=== PATIENT | male | born 1955 | race Hispanic/Latino ===

== ENCOUNTER 2018-08-12 10:38 | Emergency (ER) | payer OTHER ==
--- OUTSIDE RECORDS SUMMARY | 2018-08-12 10:40 | XMS REPORT | Continuity of Care Document ---
:1955 Author Organization Interface Problems Problem Status Onset Classification Date Comments Source Date Reported WOUND CLOSURE Active 01/28/20 [facility] LEFT MID FOOT 17 AMPUTATION N/A Active 01/28/20 [place] [id number] Diabetes Active Problem 02/02/2017 [facility] OTH COMPLICATIONS Active [facility] OF PROCEDURES, NEC, IN Medications Medication Details Route Status Patient Ordering Order Source Instructions Provider Date Acetaminophen 15 ml, Route: Inactive 21.7 MG/ML / PO, Drug Form: 2016 [facility] Hydrocodone SOLN, Dosing Bitartrate 0.5 Weight 66.364, MG/ML Oral kg, ONCE, PRN Solution Pain Score 4-6, Start date: 01/30/17 15:25:00 CDT Insulin, Aspart, 3 unit, 0.03 mL, No Longer Human Route: SUB-Q, Active 2016 [facility] Drug form: SOLN, Sliding Scale, Dosing Weight 66.364, kg, PRN Blood Glucose Results, Start date: 01/30/17 13:56:00 CDT, Duration: 30 day, Stop date: 03/01/17 13:55:00 CDTNotes: Roll in palms of hands gently; Do not shake vigorously. (Same as: NovoLOG) "single patient use only" WASTE: F/P - Black; E - Municipal Trash Bin Stable for 28 days at room temperature. Expires in days from Da te Sodium Chloride 1,000 mL, Rate: No Longer 0.154 MEQ/ML 125 ml/hr, Active 2016 [facility] Injectable Infuse over: 8 Solution hr, Route: IV, Dosing Weight 66.364 kg, Total Volume: 1,000, Start date: 01/30/17 13:56:00 CDT, Duration: 30 day, Stop date: 03/01/17 13:55:00 CDT Morphine 2 mg, 1 mL, No Longer Route: IVP, Drug Active 2016 [facility] form: INJ, Q5Min, Dosing Weight 66.364, kg, PRN Pain Score 4-6, Start date: 01/30/17 13:56:00 CDT, Duration: 5 doses or times, Stop date: Limited # of timesNotes: (Same as:MORPhine Sulfate) Acetaminophen 1,000 mg, 2 tab, No Longer Route: PO, Drug Active 2016 [facility] form: TAB, ONCE, Dosing Weight 66.364, kg, PRN Pain Score 1-3, Start date: 01/30/17 13:56:00 CDT, Duration: 1 doses or times, Stop date: Limited # of timesNotes: Max acetaminophen 4000 mg/day (4 gm/day). (Same as: Tylenol Extra Strength) Fentanyl 25 microgram, No Longer 0.5 mL, Route: Active 2016 [facility] IVP, Drug form: INJ, Q5Min, Dosing Weight 66.364, kg, PRN Pain Score 4-6, Priority: Routine, Start date: 01/30/17 13:56:00 CDT, Duration: 4 doses or times, Stop date: Limited # of timesNotes: (Same as: Sublimaze) Preservative free. Ondansetron 4 mg, 2 mL, Inactive Route: IVP, Drug 2016 [facility] form: INJ, ONCE, Dosing Weight 66.364, kg, PRN Nausea & Vomiting, Start date: 01/30/17 13:56:00 CDTNotes: (Same as: Zofran) MEDICATION WASTE Product Size: 4 mg Product Wasted: ___ mg Flumazenil 0.2 mg, 2 mL, No Longer Route: IVP, Drug Active 2016 [facility] form: INJ, PRN, Dosing Weight 66.364, kg, PRN Benzodiazepine Reversal, Initial dose, Start date: 01/30/17 13:56:00 CDT, Duration: 30 day, Stop date: 03/01/17 13:55:00 CDTNotes: (Same as: Romazicon) Naloxone 0.4 mg, 1 mL, No Longer Route: IVP, Drug Active 2016 [facility] form: INJ, Q2MIN, Dosing Weight 66.364, kg, PRN Narcotic Reversal, Start date: 01/30/17 13:56:00 CDT, Duration: 8 doses or times, Stop date: Limited # of timesNotes: Same as Narcan ePHEDrine (ANES) Route: IV, Drug Inactive MH form: INJ, ONCE, 2016 [facility] Stop date: 01/30/17 13:41:00 CDT metoclopramide Route: IV, Drug Inactive MH (ANES) form: INJ, ONCE, 2016 [facility] Stop date: 01/30/17 13:16:00 CDT ondansetron Route: IV, Drug Inactive MH (ANES) form: INJ, ONCE, 2016 [facility] Stop date: 01/30/17 13:16:00 CDT propofol (ANES) Route: IV, Drug Inactive MH form: INJ, ONCE, 2016 [facility] Stop date: 01/30/17 13:11:00 CDT lidocaine (ANES) Route: IV, Drug Inactive MH form: INJ, ONCE, 2016 [facility] Stop date: 01/30/17 13:06:00 CDT phenylephrine Route: IV, Drug Inactive MH (ANES) form: INJ, ONCE, 2016 [facility] Stop date: 01/30/17 13:06:00 CDT midazolam (ANES) Route: IV, Drug Inactive MH form: CHASEN, 2016 [facility] ONCE, Stop date: 01/30/17 13:06:00 CDT Unknown Home Refill(s) 0 Active Medication 2016 [facility] Aspirin 81 mg, PO, 0 Active Refill(s) 2016 [facility] metoprolol 50 mg=1 tab, PO, Active tartrate 50 mg BID, 0 Refill(s) 2016 [facility] oral tablet meropenem 500 mg 500 mg, IV, Q12H Active intravenous 2016 [facility] injection propofol (ANES) Route: IV, Drug Inactive MH (ANES) form: INJ, Start 2016 date: 01/30/17 12:29:00 CDT, Stop date: 01/30/17 13:29:00 CDT vancomycin 750 IV, Q48H, 0 Active mg intravenous Refill(s) 2016 [facility] injection sodium chloride Route: IV, Total Inactive 05/01/ 0.9% 500 ml INJ Volume: 500, 2017 [facility] (ANES) Start date: 01/30/17 12:20:00 CDT, Stop date: 01/30/17 13:20:00 CDT Allergies, Adverse Reactions, Alerts Substance Category Reaction Severity Reaction Status Date Comments Source type Reported Immunizations Immunization Date Given Site Status Last Updated Comments Source Results Order Name Results Value Reference Date Interpretation Comments Source Range ELECTROLYTES POC Sodium 127 135 - 145 meq/L 2016 [facility] ELECTROLYTES POC 4.7 3.5 - 5.1 Potassium meq/L 2016 [facility] ELECTROLYTES POC Chloride 91 95 - 109 meq/L 2016 [facility] ELECTROLYTES POC BUN 61 7 - 22 mg/dL 2016 [facility] ELECTROLYTES POC Glucose 108 70 - 99 mg/dL 2016 [facility] ELECTROLYTES POC 9.9 14.0 - 18.0 Hemoglobin g/dL 2016 [facility] ELECTROLYTES POC 29.0 % 42.0 - 54.0 Hematocrit 2016 [facility] Vital Signs Vital Sign Value Date Comments Source Systolic (mm Hg) 108 01/30/2017 [facility] Diastolic (mm Hg) 64 01/30/2017 [facility] Systolic (mm Hg) 105 01/30/2017 [facility] Diastolic (mm Hg) 71 01/30/2017 [facility] Respitory Rate 15 01/30/2017 [facility] Systolic (mm Hg) 98 01/30/2017 [facility] Diastolic (mm Hg) 59 01/30/2017 [facility] Respitory Rate 21 01/30/2017 [facility] Respitory Rate 16 01/30/2017 [facility] Heart Rate 70 01/30/2017 [facility] Temperature Oral (F) 97.6 F 01/30/2017 [facility] BMI Calculated 25.11 01/27/2017 [facility] Height 162.56 cm 01/27/2017 [facility] Weight 66.364 01/27/2017 [facility] Encounters Location Location Encounter Encounter Reason Attending ADM DC Status Source Details Type Number For Provider Date Date Visit [id number] Rodolfo 01/30 01/30 [facility] [place] /[address] [facility] Procedures Procedure Code Date Perfomer Comments Source Cholecystectomy [id number] [facility]
[2018-08-12] MEDS ORDERED: NA CHLORIDE 0.9% 1,000 ML ONE (11:25)
--- NOTE | 2018-08-12 11:52 | RAD REPORT ---
EXAM DESCRIPTION: CT - Abdomen Pelvis Wo Contrast - 08/12/2018 11:37 am CLINICAL HISTORY: Weakness, abdominal pain, peritoneal dialysis patient COMPARISON: None. TECHNIQUE: Axial [address] imaging of the abdomen and pelvis was performed without IV contrast. No IV contrast was given because of allergy, abnormal renal function, patient refusal or physician re quest. Oral contrast was given. All CT scans are performed using dose optimization technique as appropriate and may include automated exposure control or mA/KV adjustment according to patient size. FINDINGS: No cardiomegaly. Trace amount of pericardial effusion near the anterior base. Minimal righ t pleural effusion is present. There is patchy lung parenchymal opacification that could be atelectas is or a minimal infiltrate. The liver, spleen and pancreas show no suspicious findings on non-contrast imaging. Cholecystectomy c lips are present. No biliary tree dilatation. No hydronephrosis or suspicious renal mass. Kidneys are atrophic. There is dense calcification of the entire arterial tree not uncommon in long-term dialysis and diabetic patients. Free fluid adjacent t o the liver is related to peritoneal dialysis. A peritoneal dialysis catheter is present in the anter ior lower abdomen and pelvis. No significant adrenal finding. Renal function is not assessed on nonco ntrast imaging. Pyelonephritis or acute renal parenchymal assessment is limited. Urinary bladder is c ontracted. Urinary bladder duarte are accentuated. Prostate gland is normal size. No dilated bowel loops or bowel wall thickening. No free air or pneumatosis. No mass or bulky lymphad enopathy. No hernia defects seen. No acute bone process. IMPRESSION: No bowel obstruction, free air or emergent finding identifiable. Minimal right base opacification could be a minimal right base pneumonia or atelectasis. There is tra ce right pleural effusion as well. Urinary bladder is contracted. Duarte are thickened. A cystitis is not excluded on noncontrast imaging . There is no adjacent stranding. No acute renal parenchymal process. Small amount of ascites near the liver related to peritoneal dialysis. Full assessment is limited is the absence of IV contrast.
--- NOTE | 2018-08-12 11:53 | RAD REPORT ---
EXAM DESCRIPTION: RAD - Chest Single View - 08/12/2018 11:46 am CLINICAL HISTORY: Weakness, shortness of breath, end-stage renal disease, dialysis patient COMPARISON: None. TECHNIQUE: AP portable chest image was obtained 1133 hours . FINDINGS: Right hemidiaphragm elevation is present. There is patchy posterior gutter opacification t hat could be atelectasis or early infiltrate. No failure or volume overload. Heart and vasculature ar e normal. No measurable pleural effusion and no pneumothorax. No acute bony abnormality seen. No acut e aortic findings suspected. IMPRESSION: Atelectasis versus early pneumonia posterior gutter on the right.
[2018-08-12 11:55] LABS: Absolute Lymphocytes (CBC) 0.4 K/uL (0.7-4.9); Absolute Neutrophil 7.2 K/uL (1.8-8.0); Basophils % 0.5 % (0-1.3); Eosinophils % 0.6 % (0-4.4); Hematocrit 31.4 % (39.6-49.0); Lymphocytes % 4.9 % (15.3-44.8); MCH 33.2 pg (27.0-35.0); MCV 94.4 fL (80-100); MPV 7.7 fL (7.6-11.3); Monocytes % 11.1 % (3.3-12.3); RBC Red Blood Cell Count 3.32 M/uL (4.33-5.43)
[2018-08-12 11:59] LABS: Protime INR 1.14
[2018-08-12 12:23] LABS: ALT/SGPT 46 U/L (12-78); AST/SGOT 31 U/L (15-37); Albumin 2.4 g/dL (3.4-5.0); Alkaline Phosphatase 77 U/L (45-117); BUN Blood Urea Nitrogen 38 mg/dL (7-18); Bicarbonate 21 mmol/L (21-32); Bilirubin Direct 0.2 mg/dL (0-0.2); Bilirubin Total 0.6 mg/dL (0.2-1.0); Glucose Level 86 mg/dL (74-106); Magnesium 1.5 mg/dL (1.8-2.4); NT PRO-BNP 4240 pg/mL (<125); Potassium 3.3 mmol/L (3.5-5.1); Protein, Total 5.1 g/dL (6.4-8.2); Sodium Level 134 mmol/L (136-145); Troponin (Emerg Dept Use Only) < 0.02 ng/mL (0.0-0.045)
--- NOTE | 2018-08-12 16:22 | ER ---
Nurse's Notes [facility] Name: Amauri Boateng Age: 62 yrs Sex: Male : 1955 Arrival Date: 08/12/2018 Time: 10:39 Bed External Waiting [facility] MD: Diagnosis: Hypotension;Pneumonia, unspecified organism;ESRD, Peritoneal dialysis Presentation: 08/12 10:42 Presenting complaint: EMS states: He does home dialysis every day, has been feeling jl7 weak for the past few days, the last time this happened it was his potassium. Transition of care: patient was not received from another setting of care. Onset of symptoms was August 12, 2018. Risk Assessment: Do you want to hurt yourself or someone else? Patient reports no desire to harm self or others. Initial Sepsis Screen: Does the patient meet any 2 criteria? No. Patient's initial sepsis screen is negative. Does the patient have a suspected source of infection? No. Patient's initial sepsis screen is negative. Care prior to arrival: IV initiated. 20 GA, in the left forearm. 10:42 Method Of Arrival: EMS: [facility] 7 10:42 Acuity: KRISTIN 3 jl7 Triage Assessment: 10:45 General: Appears in no apparent distress. uncomfortable, Behavior is calm, cooperative, jl7 appropriate for age. Pain: Denies pain. EENT: No signs and/or symptoms were reported regarding the EENT system. Neuro: Level of Consciousness is awake, alert, obeys commands, Oriented to person, place, time, situation, Speech is normal. Cardiovascular: Heart tones present Patient's skin is warm and dry. Respiratory: Airway is patent Respiratory effort is even, unlabored, Respiratory pattern is regular, symmetrical, Denies cough, shortness of breath. GI: No signs and/or symptoms were reported involving the gastrointestinal system. : No signs and/or symptoms were reported regarding the genitourinary system. Derm: Skin is pink, warm \\T\\ dry. Musculoskeletal: No signs and/or symptoms reported regarding the musculoskeletal system. Historical: - Allergies: 10:45 No Known Allergies; jl7 - Home Meds: 10:45 Potassium Chloride Oral [Active]; Lomotil oral oral [Active]; Eliquis oral oral jl7 [Active]; - PMHx: 10:45 ESRD; Dialysis; Diabetes - NIDDM; jl7 10:57 Chronic Diarrhea; jl7 - PSHx: 10:55 left toes amputation; jl7 - Immunization history:: Adult Immunizations up to date. - Social history:: Smoking status: Patient/guardian denies using tobacco. - Ebola Screening: : No symptoms or risks identified at this time. Screenin:46 Abuse screen: Denies threats or abuse. Denies injuries from another. Nutritional jl7 screening: No deficits noted. Tuberculosis screening: No symptoms or risk factors identified. Fall Risk IV access (20 points). Total Bateman Fall Scale indicates No Risk (0-24 pts). Assessment: 10:46 General: see triage assessment. jl7 11:39 Reassessment: No changes from previously documented assessment. Patient and/or family jl7 updated on plan of care and expected duration. Pain level reassessed. Patient is alert, oriented x 3, equal unlabored respirations, skin warm/dry/pink. 12:44 Reassessment: Patient appears in no apparent distress at this time. Patient and/or jl7 family updated on plan of care and expected duration. Pain level reassessed. Patient is alert, oriented x 3, equal unlabored respirations, skin warm/dry/pink. 12:51 Reassessment: Lab alert: Creat. 9.60, ERP notified. jl7 14:33 Reassessment: Patient appears in no apparent distress at this time. Patient and/or jl7 family updated on plan of care and expected duration. Pain level reassessed. Patient is alert, oriented x 3, equal unlabored respirations, skin warm/dry/pink. 15:30 Reassessment: Patient appears in no apparent distress at this time. Patient and/or jl7 family updated on plan of care and expected duration. Pain level reassessed. Patient is alert, oriented x 3, equal unlabored respirations, skin warm/dry/pink. 16:30 Reassessment: Patient and/or family updated on plan of care and expected duration. Pain jl7 level reassessed. Patient is alert, oriented x 3, equal unlabored respirations, skin warm/dry/pink. Pt's is leaving at this time, reports "I can't drive in the dark.". 17:30 Reassessment: No changes from previously documented assessment. Patient and/or family jl7 updated on plan of care and expected duration. Pain level reassessed. Patient is alert, oriented x 3, equal unlabored respirations, skin warm/dry/pink. 18:30 Reassessment: No changes from previously documented assessment. Patient and/or family jl7 updated on plan of care and expected duration. Pain level reassessed. Patient is alert, oriented x 3, equal unlabored respirations, skin warm/dry/pink. Vital Signs: 10:40 BP 95 / 50; Pulse 93; Resp 18; Temp 99.5(O); Pulse Ox 98% on R/A; Weight 69.4 kg; hj Height 5 ft. 5 in. (165.10 cm); 11:00 BP 78 / 60; Pulse 90; Resp 14 S; Pulse Ox 99% on R/A; jl7 11:15 BP 83 / 57 LA; Pulse 88; Resp 16 S; Pulse Ox 99% on R/A; jl7 11:20 BP 90 / 41 RA; Pulse 88; Resp 14; Pulse Ox 98% on R/A; jl7 11:52 BP 85 / 62; Pulse 82; Resp 16 S; Pulse Ox 98% on R/A; jl7 12:00 BP 101 / 63; Pulse 83; Resp 16 S; Pulse Ox 99% on R/A; jl7 12:15 BP 106 / 68; Pulse 84; Resp 16 S; Pulse Ox 100% on R/A; jl7 12:30 BP 95 / 64; Pulse 75; Resp 16 S; Pulse Ox 99% on R/A; jl7 13:00 BP 107 / 71; Pulse 82; Resp 16 S; Pulse Ox 98% on R/A; jl7 13:30 BP 90 / 61; Pulse 80; Resp 16 S; Pulse Ox 96% on R/A; jl7 14:00 BP 102 / 64; Pulse 80; Resp 80; Pulse Ox 99% ; jl7 14:33 BP 95 / 69; Pulse 84; Resp 16 S; Pulse Ox 98% on R/A; jl7 15:00 BP 93 / 58; Pulse 81; Resp 16 S; Pulse Ox 98% on R/A; jl7 15:30 BP 99 / 56; Pulse 81; Resp 16 S; Pulse Ox 98% on R/A; jl7 16:00 BP 106 / 66; Pulse 82; Resp 14 S; Pulse Ox 100% on R/A; jl7 16:30 BP 101 / 68; Pulse 81; Resp 16 S; Pulse Ox 100% on R/A; jl7 17:00 BP 101 / 67; Pulse 79; Resp 16 S; Pulse Ox 100% on R/A; jl7 17:30 BP 100 / 63; Pulse 77; Resp 16 S; Pulse Ox 100% on R/A; jl7 18:00 BP 103 / 62; Pulse 79; Resp 16 S; Pulse Ox 100% on R/A; jl7 18:30 BP 95 / 65; Pulse 74; Resp 16 S; Pulse Ox 100% on R/A; jl7 19:30 BP 120 / 74; Pulse 79; Resp 18; Pulse Ox 99% on R/A; tl2 20:51 BP 112 / 75; Pulse 79; Resp 17; Pulse Ox 99% on R/A; tl2 10:40 Body Mass Index 25.46 (69.40 kg, 165.10 cm) ED Course: 10:39 Patient arrived in ED. hj 10:42 Leanna Marshall RN is Primary Nurse. jl7 10:43 Triage completed. jl7 10:45 Emmanuel Beavers NP is PHCP. pm1 10:45 Shaquille Mcgregor MD is Attending Physician. pm1 10:45 Arm band placed on right wrist. jl7 10:46 Patient has correct armband on for positive identification. Placed in gown. Bed in low jl7 position. Call light in reach. Side rails up X2. board mill supervisor on. Pulse ox on. NIBP on. Warm blanket given. 10:46 Maintain EMS IV. Dressing intact. Good blood return noted. Site clean \\T\\ dry. Gauge \\T\\ jl 7 site: 20 right FA. 11:00 EKG done, by ED staff, reviewed by Emmanuel Beavers NP. jb1 11:25 First set of blood cultures drawn by me. jb1 11:37 CT completed. Patient tolerated procedure well. Patient moved back from CT. bq 11:37 CT Abd/Pelvis - Without Cont In Process Unspecified. EDMS 11:40 Second set of blood cultures drawn by me. jb1 11:44 X-ray completed. Patient tolerated procedure well. Patient moved back from radiology. sg4 11:45 XRAY Chest (1 view) In Process Unspecified. EDMS 11:52 Initial lab(s) drawn, by tn, sent to lab. Inserted saline lock: 22 gauge in right jb1 wrist, using aseptic technique. Blood collected. 19:09 Primary Nurse role handed off by Leanna Marshall RN jl7 21:29 No provider procedures requiring assistance completed. Patient transferred, IV remains tl2 in place. Administered Medications: 11:25 Drug: NS 0.9% 1000 ml Route: IV; Rate: 1000 ml; Site: left forearm; jl7 12:30 Follow up: IV Status: Completed infusion jl7 16:30 Drug: NS 0.9% 1000 ml Route: IV; Rate: 100 ml/hr; Site: right forearm; jl7 16:31 Drug: Rocephin 1 grams Route: IV; Rate: calculated rate; Site: right forearm; jl7 16:33 Follow up: Response: No adverse reaction; IV Status: Completed infusion jl7 16:34 Drug: Magnesium Sulfate 1 grams Route: IVPB; Infused Over: 1 hrs; Site: right forearm; jl7 16:36 Drug: Potassium Effervescent Tablet 25 mEq Route: PO; jl7 Outcome: 16:21 ER care complete, transfer ordered by MD. pm1 21:10 Patient left the ED. tl2 21:29 Transferred by ground EMS Transfer form completed. tl2 21:29 Condition: stable 21:29 Discharge instructions given to patient, Instructed on the need for transfer. Signatures: Dispatcher [employer] EDMS Surinder Gilbert jb1 Delaney Yañez Henry, RN RN hj Emmanuel Beavers, DANILO MONTESSORI PARAPROFESSIONAL pm1 Martha Piña RN RN tl2 Leanna Marshall RN RN jl7 Noreen Sanchez sg4 Corrections: (The following items were deleted from the chart) 10:42 10:40 BP 95 / 50; Pulse 93bpm; Resp 18bpm; Pulse Ox 98% RA; Temp 99.5F Oral; 73.94 kg; hj Height 5 ft. 5 in.; BMI: 27.1; hj 17:02 12:31 Rocephin 1 grams IV at calculated rate in right forearm jl7 jl7
--- NOTE | 2018-08-12 16:22 | EDPHYS ---
Physician Documentation [facility] Name: Amauri Boateng Age: 62 yrs Sex: Male : 1955 Arrival Date: 08/12/2018 Time: 10:39 Bed External Waiting Private MD: ED Physician Shaquille Mcgregor HPI: 08/12 12:00 This 62 yrs old Male presents to ER via EMS with complaints of Blood Pressure pm1 Problem, General Weakness. 12:00 The patient presents to the emergency department with weakness of the entire body, pm1 generalized weakness. Onset: The symptoms/episode began/occurred 1 week(s) ago. Associated signs and symptoms: Pertinent positives: diarrhea, cough, Pertinent negatives: chills, fever, headache, nausea, vomiting. Severity of symptoms: in the emergency department the symptoms are worse Pain is currently a 0 / 10. Patient's baseline: The patient has a previous history of ESRD, peritoneal dialysis for 11 years, chronic diarrhea since onset of peritoneal dialysis. Current symptoms: generalized weakness. The patient has not experienced similar symptoms in the past. The patient has not recently seen a physician, the patient's primary care provider is Dr. Galindo, PCP and nephrology . Presenting today with complaints of generalized weakness for 1 week. Has had diarrhea and cough. No nausea or vomiting. On EMS arrival, patient with hypotension. Systolic blood pressure in the 80s on EMS arrival. Patient with history of chronic diarrhea since onset of peritoneal dialysis 11 years ago. Has had evaluation by two GI physicians and no known cause for diarrhea. Takes Lomotil PRN for diarrhea. . Historical: - Allergies: 10:45 No Known Allergies; jl7 - Home Meds: 10:45 Potassium Chloride Oral [Active]; Lomotil oral oral [Active]; Eliquis oral oral jl7 [Active]; - PMHx: 10:45 ESRD; Dialysis; Diabetes - NIDDM; jl7 10:57 Chronic Diarrhea; jl7 - PSHx: 10:55 left toes amputation; jl7 - Immunization history:: Adult Immunizations up to date. - Social history:: Smoking status: Patient/guardian denies using tobacco. - Ebola Screening: : No symptoms or risks identified at this time. ROS: 12:00 Constitutional: Negative for fever, chills, and weight loss, Eyes: Negative for injury, pm1 pain, redness, and discharge, ENT: Negative for injury, pain, and discharge, Neck: Negative for injury, pain, and swelling, Cardiovascular: Negative for chest pain, palpitations, and edema, Abdomen/GI: Negative for abdominal pain, nausea, vomiting, diarrhea, and constipation, Back: Negative for injury and pain. 12:00 MS/Extremity: Negative for injury and deformity, Skin: Negative for injury, rash, and discoloration. 12:00 Respiratory: Positive for cough, Negative for shortness of breath, sputum production, wheezing. 12:00 Neuro: Positive for weakness, generalized, Negative for dizziness, headache, numbness, tingling. Exam: 12:00 Constitutional: This is a well developed, well nourished patient who is awake, alert, pm1 and in no acute distress. Head/Face: Normocephalic, atraumatic. Eyes: Pupils equal round and reactive to light, extra-ocular motions intact. Lids and lashes normal. Conjunctiva and sclera are non-icteric and not injected. Cornea within normal limits. Periorbital areas with no swelling, redness, or edema. ENT: Nares patent. No nasal discharge, no septal abnormalities noted. Tympanic membranes are normal and external auditory canals are clear. Oropharynx with no redness, swelling, or masses, exudates, or evidence of obstruction, uvula midline. Mucous membranes moist. Neck: Trachea midline, no thyromegaly or masses palpated, and no cervical lymphadenopathy. Supple, full range of motion without nuchal rigidity, or vertebral point tenderness. No Meningismus. Chest/axilla: Normal chest wall appearance and motion. Nontender with no deformity. No lesions are appreciated. Cardiovascular: Regular rate and rhythm with a normal S1 and S2. No gallops, murmurs, or rubs. Normal PMI, no JVD. No pulse deficits. Respiratory: Lungs have equal breath sounds bilaterally, clear to auscultation and percussion. No rales, rhonchi or wheezes noted. No increased work of breathing, no retractions or nasal flaring. Abdomen/GI: Soft, non-tender, with normal bowel sounds. No distension or tympany. No guarding or rebound. No evidence of tenderness throughout. Peritoneal dialysis site on abdomen without any signs of infection. No tenderness, redness, erythema, or discharge Back: No spinal tenderness. No costovertebral tenderness. Full range of motion. Skin: Warm, dry with normal turgor. Normal color with no rashes, no lesions, and no evidence of cellulitis. MS/ Extremity: Pulses equal, no cyanosis. Neurovascular intact. Full, normal range of motion. 12:00 Neuro: Orientation: is normal, Motor: is normal, moves all fours. Vital Signs: 10:40 BP 95 / 50; Pulse 93; Resp 18; Temp 99.5(O); Pulse Ox 98% on R/A; Weight 69.4 kg; hj Height 5 ft. 5 in. (165.10 cm); 11:00 BP 78 / 60; Pulse 90; Resp 14 S; Pulse Ox 99% on R/A; jl7 11:15 BP 83 / 57 LA; Pulse 88; Resp 16 S; Pulse Ox 99% on R/A; jl7 11:20 BP 90 / 41 RA; Pulse 88; Resp 14; Pulse Ox 98% on R/A; jl7 11:52 BP 85 / 62; Pulse 82; Resp 16 S; Pulse Ox 98% on R/A; jl7 12:00 BP 101 / 63; Pulse 83; Resp 16 S; Pulse Ox 99% on R/A; jl7 12:15 BP 106 / 68; Pulse 84; Resp 16 S; Pulse Ox 100% on R/A; jl7 12:30 BP 95 / 64; Pulse 75; Resp 16 S; Pulse Ox 99% on R/A; jl7 13:00 BP 107 / 71; Pulse 82; Resp 16 S; Pulse Ox 98% on R/A; jl7 13:30 BP 90 / 61; Pulse 80; Resp 16 S; Pulse Ox 96% on R/A; jl7 14:00 BP 102 / 64; Pulse 80; Resp 80; Pulse Ox 99% ; jl7 14:33 BP 95 / 69; Pulse 84; Resp 16 S; Pulse Ox 98% on R/A; jl7 15:00 BP 93 / 58; Pulse 81; Resp 16 S; Pulse Ox 98% on R/A; jl7 15:30 BP 99 / 56; Pulse 81; Resp 16 S; Pulse Ox 98% on R/A; jl7 16:00 BP 106 / 66; Pulse 82; Resp 14 S; Pulse Ox 100% on R/A; jl7 16:30 BP 101 / 68; Pulse 81; Resp 16 S; Pulse Ox 100% on R/A; jl7 17:00 BP 101 / 67; Pulse 79; Resp 16 S; Pulse Ox 100% on R/A; jl7 17:30 BP 100 / 63; Pulse 77; Resp 16 S; Pulse Ox 100% on R/A; jl7 18:00 BP 103 / 62; Pulse 79; Resp 16 S; Pulse Ox 100% on R/A; jl7 18:30 BP 95 / 65; Pulse 74; Resp 16 S; Pulse Ox 100% on R/A; jl7 19:30 BP 120 / 74; Pulse 79; Resp 18; Pulse Ox 99% on R/A; tl2 20:51 BP 112 / 75; Pulse 79; Resp 17; Pulse Ox 99% on R/A; tl2 10:40 Body Mass Index 25.46 (69.40 kg, 165.10 cm) hj MDM: 10:45 Patient medically screened. pm1 15:32 Physician consultation: Betty Daley MD was called at 15:32, was contacted at pm1 15:32, regarding consult, patient's condition, after a discussion of the case, a recommendation for transfer for higher level of care is made, Requests transfer to [facility] due to peritoneal dialysis. Will contact Dr. Anthony Rice to discuss case and see if he available to take the patient. 16:19 Physician consultation: Anthony Rice was called at 16:10, was contacted at 16:19, pm1 regarding regarding transfer, patient's condition, Will see if bed availability at [facility] and will call us back. 18:35 Data reviewed: vital signs. Data interpreted: Pulse oximetry: on room air is 100 %. pm1 Interpretation: normal. 08/12 11:16 Order name: Basic Metabolic Panel pm1 08/12 11:16 Order name: CBC with Diff pm1 08/12 11:16 Order name: LFT's; Complete Time: 13:12 pm1 08/12 11:16 Order name: Magnesium; Complete Time: 13:12 pm1 08/12 11:16 Order name: NT PRO-BNP; Complete Time: 13:12 pm1 08/12 11:16 Order name: PT-INR; Complete Time: 13:10 pm1 08/12 11:16 Order name: Troponin (emerg Dept Use Only); Complete Time: 13:12 pm1 08/12 11:16 Order name: Procalcitonin; Complete Time: 13:13 pm1 08/12 11:16 Order name: Blood Culture Adult (2) pm1 08/12 11:17 Order name: Basic Metabolic Panel; Complete Time: 13:12 EDMS 08/12 11:17 Order name: CBC with Automated Diff; Complete Time: 12:04 EDMS 08/12 11:17 Order name: Lactate; Complete Time: 13:13 pm1 08/12 11:17 Order name: Flu; Complete Time: 13:12 pm1 08/12 11:16 Order name: XRAY Chest (1 view); Complete Time: 12:04 pm1 08/12 11:16 Order name: EKG; Complete Time: 11:18 pm1 08/12 11:16 Order name: Cardiac monitoring; Complete Time: 11:38 pm1 08/12 11:16 Order name: EKG - Nurse/Tech; Complete Time: 11:39 pm1 08/12 11:16 Order name: IV Saline Lock; Complete Time: 11:39 pm1 08/12 11:16 Order name: Labs collected and sent; Complete Time: 11:39 pm1 08/12 11:16 Order name: O2 Per Protocol; Complete Time: 11:39 pm1 08/12 11:16 Order name: O2 Sat Monitoring; Complete Time: 11:39 pm1 08/12 11:16 Order name: CT Abd/Pelvis - Without Cont; Complete Time: 12:04 pm1 Administered Medications: 11:25 Drug: NS 0.9% 1000 ml Route: IV; Rate: 1000 ml; Site: left forearm; jl7 12:30 Follow up: IV Status: Completed infusion jl7 16:30 Drug: NS 0.9% 1000 ml Route: IV; Rate: 100 ml/hr; Site: right forearm; jl7 16:31 Drug: Rocephin 1 grams Route: IV; Rate: calculated rate; Site: right forearm; jl7 16:33 Follow up: Response: No adverse reaction; IV Status: Completed infusion jl7 16:34 Drug: Magnesium Sulfate 1 grams Route: IVPB; Infused Over: 1 hrs; Site: right forearm; jl7 16:36 Drug: Potassium Effervescent Tablet 25 mEq Route: PO; jl7 Disposition: 08/12/18 16:21 Transfer ordered to Other Acute Care Facility. Diagnosis are Hypotension, Pneumonia, unspecified organism, ESRD, Peritoneal dialysis. - Reason for transfer: Higher level of care. - Accepting physician is Anthony Rice. - Condition is Stable. - Problem is new. - Symptoms have improved. Signatures: Dispatcher [employer] EDGA Emmanuel Beavers NP [employer] pm1 Martha Piña RN RN tl2 Leanna Marshall RN RN jl7 Corrections: (The following items were deleted from the chart) 16:38 15:32 Physician consultation: Betty Daley MD was called at 15:32, was contacted at pm1 15:32, regarding consult, patient's condition, after a discussion of the case, a recommendation for transfer for higher level of care is made, Requests transfer to [facility] due to peritoneal dialysis. Will contact Dr. Anthony Rice to , pm1 21:10 16:21 08/12/2018 16:21 Transfer ordered to Other Acute Care Facility. Diagnosis is tl2 Hypotension; Pneumonia, unspecified organism; ESRD, Peritoneal dialysis. Reason for transfer: Higher level of care. Accepting physician is Anthony Rice. Condition is Stable. Problem is new. Symptoms have improved. pm1
--- NOTE | 2018-08-13 07:04 | EKG ---
Test Date: 2018-08-12 Test Time: 10:47:16 [employer] Representative: ZHANG MEASUREMENT RESULTS: Intervals: Rate: 91 SC: 170 QRSD: 70 QT: 376 QTc: 462 [place]: P: 47 SC: 170 QRS: 5 T: 58 INTERPRETIVE STATEMENTS: Normal sinus rhythm Nonspecific T wave abnormality Prolonged QT Abnormal ECG Compared to ECG 12/21/2007 23:00:49 T-wave abnormality now present Prolonged QT interval now present Electronically Signed On 08-13-18 07:03:19 [employer] by Kip Alcaraz
== END 2018-08-12 21:10 ==
LOC: ER 10:38
DX: I95.9 Hypotension, unspecified (principal); J18.9 Pneumonia, unspecified organism; E11.22 Type 2 diabetes mellitus with diabetic chronic kidney disease; N18.6 End stage renal disease; Z99.2 Dependence on renal dialysis
CPT/HCPCS: 36415; 71045; 74176; 80048; 80076; 83605; 83735; 83880; 84145; 84484; 85025; 85610; 87040 ×2; 87804 ×2; 93005; 96361; 96374; 96375; 99285; J7030

== ENCOUNTER 2019-12-20 23:32 | Emergency (ER) | payer OTHER ==
--- OUTSIDE RECORDS SUMMARY | 2019-12-20 23:35 | XMS REPORT ---
:1955 Author Organization [employer] Care Team Providers Name Role Phone Rambo Pond Provider Role Unavailable Allergies, Adverse Reactions, Alerts Substance Reaction Event Type N.K.D.A. Info Not Available Non Drug Allergy Problems Problem Type Condition Code Onset Dates Condition Status Problem Pain in joint of left knee M25.562 Active Problem Closed nondisplaced fracture of S82.002A Active left patella, unspecified fracture morphology, initial encounter Assessment Pain in joint of left knee M25.562 Active Assessment Closed nondisplaced fracture of S82.002A Active left patella, unspecified fracture morphology, initial encounter Medications Medication Code System Code Instructions Start Date End Date Status Dosage Lomotil [facility] 56853-284 Active not defined 1-31 clopidogrel NDC 0 Active not defined VitaMelts [facility] 14796-287 Active not defined Vitamin D 77 Pepcid [facility] 00435-853 Active not defined 0-10 Bactroban [facility] 45942-051 Active not defined 7-22 Pletal NDC 0 Active not defined Plavix [facility] 55859-115 Active not defined 2-02 Klor-Con M20 [facility] 16634-395 Active not defined 8-15 Crestor [facility] 67541-544 Active not defined 5-90 Results No Known Results Summary Purpose [employer] Submission
--- OUTSIDE RECORDS SUMMARY | 2019-12-20 23:35 | XMS REPORT ---
:1955 Author Organization [employer] Care Team Providers Name Role Phone Rambo Pond Provider Role Unavailable Allergies No Known Allergies Problems Problem Type Condition Code Onset Dates Condition Status Problem Pain in joint of left knee M25.562 Active Problem Closed nondisplaced fracture of S82.002A Active left patella, unspecified fracture morphology, initial encounter Medications No Known Medications Results No Known Results Summary Purpose [employer] Submission
--- OUTSIDE RECORDS SUMMARY | 2019-12-20 23:35 | XMS REPORT ---
[...] M25.562 Active Assessment Closed nondisplaced fracture of S82.002D Active left patella with routine healing, unspecified fracture morphology, subsequent encounter Medications Medication Code System Code Instructions Start Date End Date Status Dosage Pletal ND 0 Active not defined Crestor [facility] 70252-598 Active not defined 5-90 Lomotil [facility] 84123-436 Active not defined 1-31 VitaMelts [facility] 38164-023 Active not defined Vitamin D 77 Klor-Con M20 [facility] 77877-024 Active not defined 8-15 Pepcid [facility] 85705-621 Active not defined 0-10 Plavix [facility] 77458-488 Active not defined 2-02 Bactroban [facility] 52159-626 Active not defined 7-22 clopidogrel ND 0 Active not defined Results No Known Results Summary Purpose [employer] Submission
--- OUTSIDE RECORDS SUMMARY | 2019-12-20 23:35 | XMS REPORT ---
:1955 [facility] Address [address] [place] [address] Care Team Providers Name Role Phone BRENDAN KNOTT Unavailable Unavailable LAURIE TIERNEY Unavailable Unavailable Problems This patient has no known problems. Allergies, Adverse Reactions, Alerts This patient has no known allergies or adverse reactions. Medications This patient has no known medications. Encounters Start End Encounter Admission Attending Care Care Encounter Date/Time Date/Time Type Type Clinicians Facility Department ID 2019-10-11 2019-10-11 Outpatient C CHRIS KNOTT RAD [id number] 10:42:00 23:59:00 BRENDAN Results Test Description Test Time Test Comments Text Results Atomic Results Result Comments MRI LOW EXT JOINT 2019-10-11 Exam MRI of the right ankle W/O CONTRAST*WW* 12:32:32 without contrastLocation: [id number]: Ulceration of the heel with pain for 2 monthsTechnique: High-resolution multiplanar multiecho imaging of the right ankle wasperformed without contrast.Findings: The study is limited secondary to motion artifact due to discomfort.Soft tissue ulceration is present within the posterior hindfoot just posteriorto the calcaneus and distal Achilles tendon with underlying cellulitis andedema however the Achilles tendon is intact. There is some mild marrow edemawith decreased T1 and an increased T2 and STIR signal within the posteriorcalcaneus which could be reactive in nature although very early osteomyelitiscannot be excluded. No osseous erosions are seen. There is considerablethickening and fibromatosis of the medial band of the plantar fascia withoutrupture or significant plantar fasciitis.The major ligamentous structures including the anterior and posteriortalofibular ligaments, calcaneofibular, deltoid ligament, and the anterior andposterior syndesmotic tibiofibular ligaments are intact.The fat within the sinus Tarsi is preserved. Cervical and interosseousligaments are intact. Spring ligament is intact.Major tendinous structures including posterior tibialis, flexor hallucislongus, flexor digitorum longus, peroneal tendons, and extensor tendons areintact.No evidence of osteochondral injury. Talar dome and tibial plafond are intact.Mild tibiotalar arthrosis with mild reactive appearing marrow edema within thetibia and the talus.Small tibiotalar effusion noted with mild subcutaneous edema about the ankle.Impression:1. Posterior hindfoot soft tissue ulceration as detailed above. There is mildmarrow edema within the posterior calcaneus which could be reactive in naturealthough very early osteomyelitis cannot be excluded. No evidence of corticalerosion.2. 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 RAD, CHEST, 1 VIEW, 2018-08-15 Reason for FINAL REPORT PATIENT ID: NON DEPT 07:44:00 exam:->pneumonia [id number] CHEST AP PORTABLE Should this be Comparison exam: 07/13/2018 performed at the History provided: Pneumonia bedside?->Yes Heart size normal. Chronically elevated right hemidiaphragm with minimal scarring or atelectatic change at the right base. Lungs otherwise clear and vascularity normal. Signed: Tk Butler MDReport Verified Date/Time: 08/15/2018 07:44:34 Reading Location: [facility] Radiology Reading Room REHENSIVE METABOLIC PANEL 2018-08-15 06:02:00 Test Item Value Reference Range Comments TOTAL PROTEIN (BEAKER) (test 4.7 gm/dL 6.0-8.5 miyt=189) ALBUMIN (BEAKER) (test 2.7 g/dL 3.5-5.0 tfws=8233) ALKALINE PHOSPHATASE (BEAKER) 82 U/L 30-115 (test tyab=683) BILIRUBIN TOTAL (BEAKER) 0.4 mg/dL 0.1-1.2 (test ithq=704) SODIUM (BEAKER) (test 131 meq/L 135-148 rfeo=757) POTASSIUM (BEAKER) (test 2.8 meq/L 3.6-5.5 vfaj=610) CHLORIDE (BEAKER) (test 96 meq/L 98-106 sgsg=847) CO2 (BEAKER) (test hpvs=080) 20 meq/L 20-29 BLOOD UREA NITROGEN (BEAKER) 44 mg/dL 10-26 (test lvih=166) CREATININE (BEAKER) (test 9.67 mg/dL 0.50-1.20 apso=101) GLUCOSE RANDOM (BEAKER) (test 157 mg/dL 70-110 xber=115) CALCIUM (BEAKER) (test 7.5 mg/dL 8.5-10.5 tbiq=658) AST (SGOT) (BEAKER) (test 20 U/L 5-40 bglb=127) ALT (SGPT) (BEAKER) (test 28 U/L 5-50 nova=860) EGFR (BEAKER) (test 5 mL/min/1.73 sq m ESTIMATED GFR IS NOT auuq=8895) ACCURATE CREATININE CLEARANCE IN PREDICTING GLOMERULAR FILTRATION RATE. ESTIMATED GFR IS NOT APPLICABLE FOR DIALYSIS PATIENTS. [id number] 05:52:00 Test Item Value Reference Range Comments MAGNESIUM (BEAKER) (test figj=925) 1.5 mg/dL 1.5-3.0 CBC W/PLT COUNT & AUTO [id number] 05:24:00 Test Item Value Reference Range Comments WHITE BLOOD CELL COUNT (BEAKER) (test dzxa=575) 5.8 K/ L 4.0-10.0 RED BLOOD CELL COUNT (BEAKER) (test ocid=543) 2.63 M/ L 4.20-5.80 HEMOGLOBIN (BEAKER) (test hjhn=388) 8.4 GM/DL 13.0-16.8 HEMATOCRIT (BEAKER) (test puvw=578) 25.0 % 36.0-50.0 MEAN CORPUSCULAR VOLUME (BEAKER) (test uefi=631) 95.1 fL 82.0-99.0 MEAN CORPUSCULAR HEMOGLOBIN (BEAKER) (test 31.9 pg 27.0-33.0 vllr=041) MEAN CORPUSCULAR HEMOGLOBIN CONC (BEAKER) (test 33.6 GM/DL 32.0-36.0 zfip=873) RED CELL DISTRIBUTION WIDTH (BEAKER) (test 13.0 % 12.0-15.0 jdhl=238) PLATELET COUNT (BEAKER) (test yfzf=031) 167 K/CU MM 150-430 MEAN PLATELET VOLUME (BEAKER) (test ccps=744) 9.5 fL 6.0-11.5 NUCLEATED RED BLOOD CELLS (BEAKER) (test 0 /100 WBC 0-0 rvho=072) NEUTROPHILS RELATIVE PERCENT (BEAKER) (test 62 % izgv=752) LYMPHOCYTES RELATIVE PERCENT (BEAKER) (test 18 % aane=308) MONOCYTES RELATIVE PERCENT (BEAKER) (test 15 % czlg=579) EOSINOPHILS RELATIVE PERCENT (BEAKER) (test 4 % zymd=518) BASOPHILS RELATIVE PERCENT (BEAKER) (test 1 % army=917) NEUTROPHILS ABSOLUTE COUNT (BEAKER) (test 3.58 K/ L 1.80-8.00 cdxo=107) LYMPHOCYTES ABSOLUTE COUNT (BEAKER) (test 1.06 K/ L 1.48-4.50 hqqi=676) MONOCYTES ABSOLUTE COUNT (BEAKER) (test 0.88 K/ L 0.00-1.30 hiju=383) EOSINOPHILS ABSOLUTE COUNT (BEAKER) (test 0.21 K/ L 0.00-0.50 fegc=965) BASOPHILS ABSOLUTE COUNT (BEAKER) (test 0.03 K/ L 0.00-0.20 ptea=428) IMMATURE GRANULOCYTES-RELATIVE PERCENT (BEAKER) 0 % 0-0 (test vyun=6675) HEPATITIS B SURFACE [id number] 11:48:00 Test Item Value Reference Range Comments HEPATITIS B SURFACE ANTIBODY (BEAKER) (test 501.0 mIU/mL <8.0 hsne=339) BASIC METABOLIC [id number] 09:47:00 Test Item Value Reference Range Comments SODIUM (BEAKER) (test 133 meq/L 135-148 zrno=359) POTASSIUM (BEAKER) (test 3.4 meq/L 3.6-5.5 vwtz=035) CHLORIDE (BEAKER) (test 96 meq/L 98-106 vjyu=681) CO2 (BEAKER) (test 21 meq/L 20-29 zuqw=098) BLOOD UREA NITROGEN 47 mg/dL 10-26 (BEAKER) (test xpas=142) CREATININE (BEAKER) (test 9.87 mg/dL 0.50-1.20 nuvs=484) GLUCOSE RANDOM (BEAKER) 97 mg/dL 70-110 (test epxv=168) CALCIUM (BEAKER) (test 7.9 mg/dL 8.5-10.5 xofh=547) EGFR (BEAKER) (test 5 mL/min/1.73 sq m ESTIMATED GFR IS NOT znal=0445) ACCURATE CREATININE CLEARANCE IN PREDICTING GLOMERULAR FILTRATION RATE. ESTIMATED GFR IS NOT APPLICABLE FOR DIALYSIS PATIENTS. CBC W/PLT COUNT & AUTO [id number] 09:25:00 Test Item Value Reference Range Comments WHITE BLOOD CELL COUNT (BEAKER) (test cnwu=238) 6.2 K/ L 4.0-10.0 RED BLOOD CELL COUNT (BEAKER) (test lyiq=498) 2.94 M/ L 4.20-5.80 HEMOGLOBIN (BEAKER) (test qkna=996) 9.7 GM/DL 13.0-16.8 HEMATOCRIT (BEAKER) (test rxhi=872) 27.7 % 36.0-50.0 MEAN CORPUSCULAR VOLUME (BEAKER) (test idee=494) 94.2 fL 82.0-99.0 MEAN CORPUSCULAR HEMOGLOBIN (BEAKER) (test 33.0 pg 27.0-33.0 ugpc=185) MEAN CORPUSCULAR HEMOGLOBIN CONC (BEAKER) (test 35.0 GM/DL 32.0-36.0 roqt=028) RED CELL DISTRIBUTION WIDTH (BEAKER) (test 12.9 % 12.0-15.0 kngm=449) PLATELET COUNT (BEAKER) (test askq=101) 173 K/CU MM 150-430 MEAN PLATELET VOLUME (BEAKER) (test cghj=751) 9.1 fL 6.0-11.5 NUCLEATED RED BLOOD CELLS (BEAKER) (test 0 /100 WBC 0-0 ydfb=674) NEUTROPHILS RELATIVE PERCENT (BEAKER) (test 64 % ciog=830) LYMPHOCYTES RELATIVE PERCENT (BEAKER) (test 17 % xwmd=725) MONOCYTES RELATIVE PERCENT (BEAKER) (test 15 % peey=017) EOSINOPHILS RELATIVE PERCENT (BEAKER) (test 3 % cblb=705) BASOPHILS RELATIVE PERCENT (BEAKER) (test 1 % ljby=489) NEUTROPHILS ABSOLUTE COUNT (BEAKER) (test 3.94 K/ L 1.80-8.00 wgnt=877) LYMPHOCYTES ABSOLUTE COUNT (BEAKER) (test 1.02 K/ L 1.48-4.50 cdqf=801) MONOCYTES ABSOLUTE COUNT (BEAKER) (test 0.91 K/ L 0.00-1.30 nzac=442) EOSINOPHILS ABSOLUTE COUNT (BEAKER) (test 0.21 K/ L 0.00-0.50 yvxb=462) BASOPHILS ABSOLUTE COUNT (BEAKER) (test 0.05 K/ L 0.00-0.20 lotu=579) IMMATURE GRANULOCYTES-RELATIVE PERCENT (BEAKER) 1 % 0-0 (test anll=4175) HEPATITIS B SURFACE [id number] 06:36:00 Test Item Value Reference Range Comments HEPATITIS B SURFACE ANTIGEN (2) (BEAKER) (test Nonreactive Nonreactive msjf=0816) RAD, CHEST, 1 VIEW, NON [id number] 08:35:00Reason for exam:-> pneumoniaShould this be performed at the bedside?->YesFINAL REPORT RAD, CHEST, 1 VIEW, NON DEPT INDICATION: pneumonia COMPARISON: None FINDINGS: Portable frontal view of the chest. IMPRESSION: Support Lines : None Lungs and pleura: Clear lungs. No effusion. Eventration noted in the right hemidiaphragm. No pneumothorax.Heart and mediastinum: Unremarkable contours.Additional findings: None. Signed: JR Morales Robert MDReport Verified Date/Time: 08/13/2018 08:35:27 Reading Location: [address] Neuro Reading Room [id number] 06:45:00 Test Item Value Reference Range Comments PHOSPHORUS (BEAKER) (test rlfz=922) 5.1 mg/dL 2.5-4.5 COMPREHENSIVE METABOLIC [id number] 06:13:00 Test Item Value Reference Range Comments TOTAL PROTEIN (BEAKER) 5.1 gm/dL 6.0-8.5 (test aqdc=238) ALBUMIN (BEAKER) (test 3.0 g/dL 3.5-5.0 kcbf=8617) ALKALINE PHOSPHATASE 67 U/L 30-115 (BEAKER) (test apmr=950) BILIRUBIN TOTAL (BEAKER) 0.6 mg/dL 0.1-1.2 (test xiwh=048) SODIUM (BEAKER) (test 132 meq/L 135-148 xnep=238) POTASSIUM (BEAKER) (test 3.7 meq/L 3.6-5.5 tuoj=546) CHLORIDE (BEAKER) (test 100 meq/L 98-106 vxyc=689) CO2 (BEAKER) (test 19 meq/L 20-29 wcme=937) BLOOD UREA NITROGEN 43 mg/dL 10-26 (BEAKER) (test swmg=858) CREATININE (BEAKER) (test 10.23 mg/dL 0.50-1.20 ypwc=579) GLUCOSE RANDOM (BEAKER) 72 mg/dL 70-110 (test fomt=491) CALCIUM (BEAKER) (test 7.8 mg/dL 8.5-10.5 zghg=241) AST (SGOT) (BEAKER) (test 26 U/L 5-40 zjmm=476) ALT (SGPT) (BEAKER) (test 37 U/L 5-50 ihqy=714) EGFR (BEAKER) (test 5 mL/min/1.73 sq m ESTIMATED GFR IS NOT wluh=1015) ACCURATE CREATININE CLEARANCE IN PREDICTING GLOMERULAR FILTRATION RATE. ESTIMATED GFR IS NOT APPLICABLE FOR DIALYSIS PATIENTS. [id number] 05:58:00 Test Item Value Reference Range Comments MAGNESIUM (BEAKER) (test gqgr=667) 1.5 mg/dL 1.5-3.0 CBC W/PLT COUNT & AUTO [id number] 05:33:00 Test Item Value Reference Range Comments WHITE BLOOD CELL COUNT (BEAKER) (test mqmd=076) 7.8 K/ L 4.0-10.0 RED BLOOD CELL COUNT (BEAKER) (test gwnb=917) 3.24 M/ L 4.20-5.80 HEMOGLOBIN (BEAKER) (test hnzt=182) 10.3 GM/DL 13.0-16.8 HEMATOCRIT (BEAKER) (test oggu=632) 31.2 % 36.0-50.0 MEAN CORPUSCULAR VOLUME (BEAKER) (test hyid=180) 96.3 fL 82.0-99.0 MEAN CORPUSCULAR HEMOGLOBIN (BEAKER) (test 31.8 pg 27.0-33.0 ejyp=485) MEAN CORPUSCULAR HEMOGLOBIN CONC (BEAKER) (test 33.0 GM/DL 32.0-36.0 glpz=573) RED CELL DISTRIBUTION WIDTH (BEAKER) (test 13.1 % 12.0-15.0 wyok=827) PLATELET COUNT (BEAKER) (test wkuo=566) 168 K/CU MM 150-430 MEAN PLATELET VOLUME (BEAKER) (test jdph=182) 9.3 fL 6.0-11.5 NUCLEATED RED BLOOD CELLS (BEAKER) (test 0 /100 WBC 0-0 ylwc=770) NEUTROPHILS RELATIVE PERCENT (BEAKER) (test 75 % gknt=453) LYMPHOCYTES RELATIVE PERCENT (BEAKER) (test 13 % yicr=363) MONOCYTES RELATIVE PERCENT (BEAKER) (test 9 % gpdd=121) EOSINOPHILS RELATIVE PERCENT (BEAKER) (test 2 % zwmg=915) BASOPHILS RELATIVE PERCENT (BEAKER) (test 1 % zsqk=936) NEUTROPHILS ABSOLUTE COUNT (BEAKER) (test 5.82 K/ L 1.80-8.00 rubf=088) LYMPHOCYTES ABSOLUTE COUNT (BEAKER) (test 1.01 K/ L 1.48-4.50 clzn=423) MONOCYTES ABSOLUTE COUNT (BEAKER) (test 0.70 K/ L 0.00-1.30 uvip=489) EOSINOPHILS ABSOLUTE COUNT (BEAKER) (test 0.16 K/ L 0.00-0.50 tafp=754) BASOPHILS ABSOLUTE COUNT (BEAKER) (test 0.05 K/ L 0.00-0.20 yvkb=035) IMMATURE GRANULOCYTES-RELATIVE PERCENT (BEAKER) 0 % 0-0 (test ttgh=5068)
[2019-12-21] MEDS ORDERED: HYDROCODONE/APAP 7.5/325 MG TAB ONE (00:11)
[2019-12-21] MEDS ORDERED: TETANUS & DIPHTHERIA TOX,ADULT 0.5 ML VIAL ONE (00:11)
--- NOTE | 2019-12-21 01:34 | ER ---
Nurse's Notes [facility] Name: Amauri Boateng Age: 64 yrs Sex: Male : 1955 Arrival Date: 12/20/2019 Time: 23:33 Bed 4 Private MD: Diagnosis: Fall due to bumping against object;Displaced fracture of neck of right radius;Displaced fracture of right ulna styloid process Presentation: 12/19 23:39 Chief complaint: EMS states: Pt was being assisted with transferring from the bed to [facility] the wheelchair. He thought the wheelchair was locked but it was not, so when he let go of the walker to try and sit in the chair it rolled backwards and he fell. He tried to catch himself with his right hand. This happened at around 1pm, he is being sent because the X-ray report. Coronavirus screen: The patient has NOT traveled to a country currently being monitored by the [facility] within the last 14 days. Proceed with normal triage procedures. The patient has NOT had contact with any known and/or suspected case of coronavirus. Proceed with normal triage procedures. Ebola Screen: No symptoms or risks identified at this time. Initial Sepsis Screen: Does the patient meet any 2 criteria? No. Patient's initial sepsis screen is negative. Does the patient have a suspected source of infection? No. Patient's initial sepsis screen is negative. Risk Assessment: Do you want to hurt yourself or someone else? Patient reports no desire to harm self or others. 23:39 Method Of Arrival: EMS: [place] [id number] 23:39 Acuity: KRISTIN 4 jb4 Historical: - Allergies: 23:30 tramadol; jb4 - Home Meds: 23:30 clopidogrel 75 mg oral tab 1 tab once daily [Active]; Nifedipine ER Oral 30 mg nightly jb4 [Active]; ramipril 10 mg Oral cap 1 cap once daily [Active]; Zofran (as hydrochloride) 4 mg Oral tab 1 tabs every 8 hours [Active]; Santyl 250 unit/gram Topical oint once daily [Active]; loperamide 2 mg Oral cap 1 caps as needed [Active]; hydralazine 50 mg Oral tab 1 tab three times a day [Active]; atorvastatin 10 mg oral tab 1 tab once daily [Active]; acetaminophen-codeine 300-30 mg Oral tab 1 tab every 4 hours [Active]; clonidine 0.1 mg/24 hr transdermal ptwk 1 patch once wkly [Active]; ascorbic acid (vitamin C) 500 mg tab [Active]; ranitidine HCl 150 mg Oral tab 1 tab 2 times per day [Active]; multivitamin with minerals oral tab [Active]; aspirin 81 mg Oral chew 1 tab once daily [Active]; Lactobacillus rhamnosus GG oral oral [Active]; sitagliptin oral 25mg oral 1 tab once daily [Active]; levothyroxine 100 mcg tab 1 tab once daily [Active]; - PMHx: 23:30 Diabetes - NIDDM; Dialysis; ESRD; chronic diarrhea; constipation; cardiac murmur; jb4 Anemia; chronic kidney disease; Hyperlipidemia; atherosclerosis; GERD; Hypothyroidism; - PSHx: 23:30 left toes amputation; jb4 - Immunization history:: Adult Immunizations up to date. - Social history:: Smoking status: Patient denies any tobacco usage or history of. - Family history:: not pertinent. Screenin:39 Abuse screen: Denies threats or abuse. Nutritional screening: No deficits noted. jb4 Tuberculosis screening: No symptoms or risk factors identified. Fall Risk Fall in past 12 months (25 points). Ambulatory Aid- Crutches/Cane/Walker (15 pts). Total Bateman Fall Scale indicates Low Risk Score (25-44 pts). Assessment: 23:39 General: Appears in no apparent distress. uncomfortable, Behavior is calm, cooperative, jb4 appropriate for age. Pain: Complains of pain in right wrist Pain does not radiate. Pain currently is 10 out of 10 on a pain scale. Pain began 1pm. Neuro: Level of Consciousness is awake, alert, obeys commands, Oriented to person, place, time, situation. Cardiovascular: Capillary refill < 3 seconds in right fingers Patient's skin is warm and dry. Pulses are 3+ in right radial artery. Respiratory: Airway is patent Respiratory effort is even, unlabored, Respiratory pattern is regular, symmetrical. GI: No signs and/or symptoms were reported involving the gastrointestinal system. : No signs and/or symptoms were reported regarding the genitourinary system. EENT: No signs and/or symptoms were reported regarding the EENT system. Derm: Skin has skin tears on right elbow. Musculoskeletal: Circulation, motion, and sensation intact. Range of motion: intact in all extremities. 12/20 00:43 Reassessment: Patient appears in no apparent distress at this time. Patient and/or jb4 family updated on plan of care and expected duration. Pain level reassessed. Patient is alert, oriented x 3, equal unlabored respirations, skin warm/dry/pink. 01:18 Reassessment: Patient appears in no apparent distress at this time. Patient and/or jb4 family updated on plan of care and expected duration. Pain level reassessed. Patient is alert, oriented x 3, equal unlabored respirations, skin warm/dry/pink. Pt reports pain has decreased. 01:45 Reassessment: Called [facility] and spoke with Melvi for patient's discharge; States lp1 she will contact [facility] and call back with [facility] for transfer back to facility. 02:00 Reassessment: Melvi called to update with [facility] will be here in about an hour for lp1 patient transfer back to facility. 02:40 Reassessment: Patient appears in no apparent distress at this time. Pt is resting in jb4 bed with eyes closed, respirations are even and unlabored. No s/s of pain or distress noted. Waiting for ride back to alf. 03:30 Reassessment: Patient appears in no apparent distress at this time. Patient and/or jb4 family updated on plan of care and expected duration. Pain level reassessed. Patient is alert, oriented x 3, equal unlabored respirations, skin warm/dry/pink. PT transferred back to alf via [facility]. Cap refil <3 seconds in right fingers. EMS and pt verbalized understanding of d/c and follow up instructions. Vital Signs: 12/19 23:39 BP 156 / 74; Pulse 81; Resp 18; Temp 99.4(TE); Pulse Ox 97% on R/A; Weight 59.87 kg jb4 (R); Height 5 ft. 4 in. (162.56 cm); Pain 07/11; 12/20 00:00 BP 147 / 78; Pulse 77; Resp 16; Pulse Ox 97% on R/A; jb4 01:00 BP 123 / 69; Pulse 75; Resp 16; Pulse Ox 95% on R/A; jb4 02:00 BP 124 / 67; Pulse 79; Resp 16; Pulse Ox 98% on R/A; jb4 03:00 BP 126 / 68; Pulse 66; Resp 16; Pulse Ox 97% on R/A; jb4 12/19 23:39 Body Mass Index 22.66 (59.87 kg, 162.56 cm) jb4 ED Course: 12/19 23:30 Arm band placed on left wrist. jb4 23:33 Patient arrived in ED. ds1 23:39 Mitchell Lynch, RN is Primary Nurse. jb4 23:39 Patient has correct armband on for positive identification. Placed in gown. Bed in low jb4 position. Call light in reach. Side rails up X2. Pulse ox on. NIBP on. 23:40 Tim Guzman MD is Attending Physician. [facility] 23:52 Triage completed. jb4 12/20 01:22 Pelvis XRAY In Process Unspecified. EDMS 01:22 Wrist Right 3 View XRAY In Process Unspecified. EDMS 01:22 Elbow Right 3 View XRAY In Process Unspecified. EDMS 01:31 Dean Reed MD is Referral Physician. ozzie 02:08 Orthoglass splint: Sugar tong splint applied on right arm. Kalen Andrew Assisted. ar5 03:30 No provider procedures requiring assistance completed. Patient did not have IV access jb4 during this emergency room visit. Administered Medications: 00:21 Drug: Tetanus-Diphtheria Toxoid Adult 0.5 ml {Senior Planning Manager: [employer]. Exp: jb4 10/17/2021. Lot #: [id number]. } Route: IM; Site: left deltoid; 01:12 Follow up: Response: No adverse reaction jb4 00:33 Drug: [place] (7.5 mg-325 mg) 2 tabs {Note: Rass score 0.} Route: PO; jb4 01:13 Follow up: Response: No adverse reaction; Pain is decreased; RASS: Alert and Calm (0) jb4 Outcome: 01:33 Discharge ordered by . ozzie 03:30 Discharged to alf. jb4 03:30 Condition: stable 03:30 Discharge instructions given to patient, EMS, Instructed on discharge instructions, follow up and referral plans. medication usage, Demonstrated understanding of instructions, follow-up care, medications, Prescriptions given X 1. 03:31 Patient left the ED. jb4 Signatures: Dispatcher [employer] Tim Baron MD MD cha Sanford, Demi ds1 Natalie Olivo RN RN lp1 Mitchell Lynch RN RN jb4 [place] [employer] ar5 Corrections: (The following items were deleted from the chart) 02:10 02:08 Orthoglass splint: Sugar tong splint applied on right arm. Kalen Gutierrez ar5 ar5
--- NOTE | 2019-12-21 01:34 | EDPHYS ---
Physician Documentation [facility] Name: Amauri Boateng Age: 64 yrs Sex: Male : 1955 Arrival Date: 12/20/2019 Time: 23:33 Bed 4 Private MD: ED Physician Tim Guzman HPI: 12/20 00:00 This 64 yrs old Male presents to ER via EMS with complaints of fall, right ozzie forearm pain. 00:00 The patient or guardian complains of decreased range of motion, pain, swelling. The ozzie complaints affect the right antecubital area, right wrist and right elbow. Context: The problem was sustained at a retirement or assisted living facility, resulted from a fall. Onset: The symptoms/episode began/occurred just prior to arrival. Treatment prior to arrival includes: no previous treatment. Modifying factors: The symptoms are alleviated by remaining still, the symptoms are aggravated by movement, bending arm. Associated signs and symptoms: Pertinent positives: pain, swelling. The patient or guardian reports decreased range of motion, pain, swelling, tenderness. The complaints affect the right wrist diffusely. Historical: - Allergies: 12/19 23:30 tramadol; jb4 - Home Meds: 23:30 clopidogrel 75 mg oral tab 1 tab once daily [Active]; Nifedipine ER Oral 30 mg nightly jb4 [Active]; ramipril 10 mg Oral cap 1 cap once daily [Active]; Zofran (as hydrochloride) 4 mg Oral tab 1 tabs every 8 hours [Active]; Santyl 250 unit/gram Topical oint once daily [Active]; loperamide 2 mg Oral cap 1 caps as needed [Active]; hydralazine 50 mg Oral tab 1 tab three times a day [Active]; atorvastatin 10 mg oral tab 1 tab once daily [Active]; acetaminophen-codeine 300-30 mg Oral tab 1 tab every 4 hours [Active]; clonidine 0.1 mg/24 hr transdermal ptwk 1 patch once wkly [Active]; ascorbic acid (vitamin C) 500 mg tab [Active]; ranitidine HCl 150 mg Oral tab 1 tab 2 times per day [Active]; multivitamin with minerals oral tab [Active]; aspirin 81 mg Oral chew 1 tab once daily [Active]; Lactobacillus rhamnosus GG oral oral [Active]; sitagliptin oral 25mg oral 1 tab once daily [Active]; levothyroxine 100 mcg tab 1 tab once daily [Active]; - PMHx: 23:30 Diabetes - NIDDM; Dialysis; ESRD; chronic diarrhea; constipation; cardiac murmur; jb4 Anemia; chronic kidney disease; Hyperlipidemia; atherosclerosis; GERD; Hypothyroidism; - PSHx: 23:30 left toes amputation; jb4 - Immunization history:: Adult Immunizations up to date. - Social history:: Smoking status: Patient denies any tobacco usage or history of. - Family history:: not pertinent. ROS: 12/20 00:00 Constitutional: Negative for fever, chills, and weight loss, Eyes: Negative for injury, ozzie pain, redness, and discharge, ENT: Negative for injury, pain, and discharge, Neck: Negative for injury, pain, and swelling, Cardiovascular: Negative for chest pain, palpitations, and edema, Respiratory: Negative for shortness of breath, cough, wheezing, and pleuritic chest pain, Abdomen/GI: Negative for abdominal pain, nausea, vomiting, diarrhea, and constipation, Back: Negative for injury and pain, : Negative for injury, bleeding, discharge, and swelling, Skin: Negative for injury, rash, and discoloration, Neuro: Negative for headache, weakness, numbness, tingling, and seizure, Psych: Negative for depression, anxiety, suicide ideation, homicidal ideation, and hallucinations, Allergy/Immunology: Negative for hives, rash, and allergies, Endocrine: Negative for neck swelling, polydipsia, polyuria, polyphagia, and marked weight changes, Hematologic/Lymphatic: Negative for swollen nodes, abnormal bleeding, and unusual bruising. MS/extremity: Positive for decreased range of motion, pain, swelling, tenderness, of the right antecubital area, right wrist and right elbow. Exam: 00:00 Constitutional: This is a well developed, well nourished patient who is awake, alert, ozzie and in no acute distress. Head/Face: Normocephalic, atraumatic. Eyes: Pupils equal round and reactive to light, extra-ocular motions intact. Lids and lashes normal. Conjunctiva and sclera are non-icteric and not injected. Cornea within normal limits. Periorbital areas with no swelling, redness, or edema. ENT: Nares patent. No nasal discharge, no septal abnormalities noted. Tympanic membranes are normal and external auditory canals are clear. Oropharynx with no redness, swelling, or masses, exudates, or evidence of obstruction, uvula midline. Mucous membranes moist. Neck: Trachea midline, no thyromegaly or masses palpated, and no cervical lymphadenopathy. Supple, full range of motion without nuchal rigidity, or vertebral point tenderness. No Meningismus. Chest/axilla: Normal chest wall appearance and motion. Nontender with no deformity. No lesions are appreciated. Cardiovascular: Regular rate and rhythm with a normal S1 and S2. No gallops, murmurs, or rubs. Normal PMI, no JVD. No pulse deficits. Respiratory: Lungs have equal breath sounds bilaterally, clear to auscultation and percussion. No rales, rhonchi or wheezes noted. No increased work of breathing, no retractions or nasal flaring. Abdomen/GI: Soft, non-tender, with normal bowel sounds. No distension or tympany. No guarding or rebound. No evidence of tenderness throughout. Back: No spinal tenderness. No costovertebral tenderness. Full range of motion. Neuro: Awake and alert, GCS 15, oriented to person, place, time, and situation. Cranial nerves II-XII grossly intact. Motor strength 5/5 in all extremities. Sensory grossly intact. Cerebellar exam normal. Normal gait. Psych: Awake, alert, with orientation to person, place and time. Behavior, mood, and affect are within normal limits. 00:00 Skin: injury, laceration(s), the wound is approximately 2 cm(s), with a depth of .25 cm(s), of the right elbow. Vital Signs: 12/19 23:39 BP 156 / 74; Pulse 81; Resp 18; Temp 99.4(TE); Pulse Ox 97% on R/A; Weight 59.87 kg jb4 (R); Height 5 ft. 4 in. (162.56 cm); Pain 1010; 12/20 00:00 BP 147 / 78; Pulse 77; Resp 16; Pulse Ox 97% on R/A; jb4 01:00 BP 123 / 69; Pulse 75; Resp 16; Pulse Ox 95% on R/A; jb4 02:00 BP 124 / 67; Pulse 79; Resp 16; Pulse Ox 98% on R/A; jb4 03:00 BP 126 / 68; Pulse 66; Resp 16; Pulse Ox 97% on R/A; [facility] 12/19 23:39 Body Mass Index 22.66 (59.87 kg, 162.56 cm) [facility] MDM: 12/19 23:40 Patient medically screened. [facility] 12/20 00:05 Data reviewed: vital signs, nurses notes, radiologic studies. [facility] 12/19 23:58 Order name: Pelvis XRAY [facility] 12/19 23:58 Order name: Wrist Right 3 View XRAY [facility] 12/19 23:58 Order name: Elbow Right 3 View XRAY [facility] 12/19 23:58 Order name: Wound Care; Complete Time: 01:12 [facility] 12/19 23:58 Order name: Sugar Tong Forearm Splint; Complete Time: 02:11 [facility] 12/19 23:58 Order name: Ice pack; Complete Time: 00:41 [facility] 12/19 23:58 Order name: Sling; Complete Time: 02:11 [facility] Administered Medications: 00:21 Drug: Tetanus-Diphtheria Toxoid Adult 0.5 ml {[employer]: [employer]. Exp: jb4 10/17/2021. Lot #: [id number]. } Route: IM; Site: left deltoid; 01:12 Follow up: Response: No adverse reaction [facility] 00:33 Drug: [place] (7.5 mg-325 mg) 2 tabs {Note: Rass score 0.} Route: PO; [facility] 01:13 Follow up: Response: No adverse reaction; Pain is decreased; RASS: Alert and Calm (0) [facility] Disposition: 12/21/19 01:33 Discharged to Home. Impression: Fall due to bumping against object, Displaced fracture of neck of right radius, Displaced fracture of right ulna styloid process. - Condition is Stable. - Discharge Instructions: Wrist Fracture Treated With Immobilization, Wrist Fracture Treated With Immobilization, [id number], Fall Prevention in the Home, [id number], Fall Prevention in Hospitals, Adult. - Prescriptions for Tylenol- Codeine #3 300-30 mg Oral Tablet - take 2 tablets by ORAL route every 6 hours As needed; 26 tablet. - Medication Reconciliation Form, Thank You Letter, Antibiotic Education, Prescription Opioid Use form. - Follow up: Private Physician; When: 2 - 3 days; Reason: Recheck today's complaints, Continuance of care, Re-evaluation by your physician. Follow up: Dean Reed MD; When: 2 - 3 days; Reason: Recheck today's complaints, Re-evaluation by your physician. - Problem is new. - Symptoms have improved. Signatures: Dispatcher [employer] EDTim Steele MD MD cha Bryson, James RN RN jb4 Corrections: (The following items were deleted from the chart) 03:31 01:33 12/21/2019 01:33 Discharged to Home. Impression: Fall due to bumping against jb4 object; Displaced fracture of neck of right radius; Displaced fracture of right ulna styloid process. Condition is Stable. Forms are Medication Reconciliation Form, Thank You Letter, Antibiotic Education, Prescription Opioid Use. Follow up: Private Physician; When: 2 - 3 days; Reason: Recheck today's complaints, Continuance of care, Re-evaluation by your physician. Follow up: Dean Reed; When: 2 - 3 days; Reason: Recheck today's complaints, Re-evaluation by your physician. Problem is new. Symptoms have improved. ozzie
[2019-12-21 03:51] VITALS: TEMP 99.4
[2019-12-21 03:53] VITALS: BP 123/69; O2SAT 95
--- NOTE | 2019-12-21 10:26 | RAD REPORT ---
EXAM DESCRIPTION: RAD - Elbow Right 3 View - 12/21/2019 1:20 am CLINICAL HISTORY: Right elbow pain FINDINGS: The bones are osteoporotic. No fracture or dislocation seen
--- NOTE | 2019-12-21 10:28 | RAD REPORT ---
EXAM DESCRIPTION: RAD - Wrist Right 3 View - 12/21/2019 1:20 am CLINICAL HISTORY: Right wrist pain status post injury FINDINGS: Mildly displaced fracture distal radius. Avulsion fracture ulnar styloid process No dislocation
--- NOTE | 2019-12-21 10:29 | RAD REPORT ---
EXAM DESCRIPTION: RAD - Pelvis - 12/21/2019 1:20 am CLINICAL HISTORY: Pelvic pain status post injury FINDINGS: No fracture or dislocation is seen. The bones are osteoporotic. Vascular calcifications ar e noted If the patient continues to have symptoms to suggest an occult fracture then MRI would be recommended
== END 2019-12-21 03:31 | disposition home or self-care (01) ==
LOC: ER 23:32
PROC: 2W3CX1Z Immobilization of Right Lower Arm using Splint (ICD-10-PCS; principal; 2019-12-21)
DX: S52.131A Displaced fracture of neck of right radius, initial encounter for closed fracture (principal); S52.611A Displaced fracture of right ulna styloid process, initial encounter for closed fracture; W18.30XA Fall on same level, unspecified, initial encounter; Y93.89 Activity, other specified; Y92.013 Bedroom of single-family (private) house as the place of occurrence of the external cause; Z88.6 Allergy status to analgesic agent; Z99.2 Dependence on renal dialysis; N18.6 End stage renal disease; E78.5 Hyperlipidemia, unspecified; E03.9 Hypothyroidism, unspecified; I70.90 Unspecified atherosclerosis
CPT/HCPCS: 72170; 90471; 90714; 99284

== ENCOUNTER 2020-03-02 14:02 | Emergency (ER) | payer OTHER ==
[2020-03-02] MEDS ORDERED: FENTANYL CITR 100 MCG/2 ML ONE (14:41)
[2020-03-02] MEDS ORDERED: ONDANSETRON 4 MG (ODT) TAB ONE (14:41)
[2020-03-02 14:56] LABS: Absolute Lymphocytes (CBC) 0.5 K/uL (0.7-4.9); Basophils % 0.4 % (0-1.3); Hematocrit 17.8 % (39.6-49.0); Lymphocytes % 4.3 % (15.3-44.8); MPV 7.3 fL (7.6-11.3); RBC Red Blood Cell Count 1.87 M/uL (4.33-5.43)
[2020-03-02 15:07] LABS: Protime INR 1.13
--- NOTE | 2020-03-02 15:24 | RAD REPORT ---
EXAM DESCRIPTION: RAD - Chest Single View - 03/02/2020 3:13 pm CLINICAL HISTORY: hypotension Chest pain. COMPARISON: Chest Single View dated 08/12/2018 FINDINGS: Portable technique limits examination quality. The lungs are emphysematous but grossly clear. The heart is normal in size. No displaced fractures.Ri ght-sided venous catheter has tip in the SVC. IMPRESSION: No acute intrathoracic process suspected.
[2020-03-02 15:29] LABS: ALT/SGPT 32 U/L (12-78); AST/SGOT 24 U/L (15-37); Albumin 2.2 g/dL (3.4-5.0); Alkaline Phosphatase 264 U/L (45-117); BUN Blood Urea Nitrogen 27 mg/dL (7-18); Bicarbonate 30 mmol/L (21-32); Bilirubin Direct 0.2 mg/dL (0-0.2); Bilirubin Total 0.4 mg/dL (0.2-1.0); Glucose Level 91 mg/dL (74-106); Magnesium 1.9 mg/dL (1.8-2.4); NT PRO-BNP 39840 pg/mL (<125); Potassium 4.1 mmol/L (3.5-5.1); Protein, Total 5.3 g/dL (6.4-8.2); Sodium Level 137 mmol/L (136-145); Troponin (Emerg Dept Use Only) < 0.02 ng/mL (0.0-0.045)
--- NOTE | 2020-03-02 15:57 | RAD REPORT ---
EXAM DESCRIPTION: US - Scrotum Testicles - 03/02/2020 3:40 pm CLINICAL HISTORY: hematoma Pain and swelling COMPARISON: Pelvis dated 12/21/2019 FINDINGS: There is significant swelling of the scrotum is seen. The right testicle 4.1 x 2.7 x 2.6 cm. A very heterogenous appearance to the right testicle is seen w ith dystrophic calcifications an irregular hypodense regions. The left testicle 3.0 x 2.6 x 1.9 cm.. Multiple areas of calcification within the left testicle also noted with a mildly heterogenous appearance. Doppler blood flow is seen in both testicles. IMPRESSION: Significant scrotal swelling is evident. Right testicle has an abnormal appearance with heterogenous hypoechoic parenchymal pattern and multip le calcifications. It is unclear if this represents an acute or chronic abnormality as there is no co mparative scrotal ultrasound available. No Doppler ultrasound evidence of testicular torsion.
--- NOTE | 2020-03-02 15:59 | RAD REPORT ---
EXAM DESCRIPTION: US - Lower Extremity Arterial Bilat - 03/02/2020 3:27 pm CLINICAL HISTORY: recent cath Leg pain COMPARISON: No comparisons TECHNIQUE: Bilateral lower extremity arterial Doppler examination was performed with shania tapia FINDINGS: Predominately monophasic waveforms are seen throughout the right lower extremity arterial system, mos t significant below the level of the popliteal artery. Left lower extremity arterial system demonstrates largely biphasic waveforms to the level of the ankl e. No occlusion seen. IMPRESSION: Diffuse pattern of moderately severe peripheral vascular disease involving the right low er extremity arterial system noted.
--- OUTSIDE RECORDS SUMMARY | 2020-03-02 17:21 | XMS REPORT | Clinical Summary ---
:1955 Author Organization [facility] Address [address] [place] [address] Care Team Providers Name Role Phone Unavailable Primary Care Provider Unavailable Allergies No Known Allergies Medications Medication Sig Dispensed Refills Start Date End Date Status cilostazol (PLETAL) 100 Take 100 mg by 0 Active MG tablet mouth 2 (two) times daily. potassium chloride Take 20 mEq by 0 Active (KLOR-CON) 20 mEq mouth 2 (two) packet times daily. clopidogrel (PLAVIX) 75 Take 75 mg by 0 Active mg tablet mouth daily. calcium acetate Take 667 mg by 0 Active (PHOSLO) 667 mg capsule mouth 3 (three) times daily with meals. ascorbic acid, vitamin Take 500 mg by 0 Active C, (ASCORBIC ACID WITH mouth daily. MAGGY HIPS) 500 MG tablet rosuvastatin (CRESTOR) Take 10 mg by 0 Active 10 MG tablet mouth daily. diphenoxylate-atropine Take 2 tablets by 0 Active (LOMOTIL) 2.5-0.025 mg mouth 3 (three) per tabletIndications: times daily as diarrhea needed for Diarrhea. traMADol (ULTRAM) 50 mg Take 50 mg by 0 Active tablet mouth as needed for Pain. Active Problems Problem Noted Date Pneumonia 08/12/2018 Chronic kidney disease 08/12/2018 Encounters Date Type Specialty Care Team Description 03/02/2020 Hospital Encounter after 03/02/2019 Social History Tobacco Use Types Packs/Day Years Used Date Never Smoker Sex Assigned at Date Recorded Not on file Job Start Date Occupation Industry Not on file Not on file Not on file Travel History Travel Start Travel End No recent travel history available. Last Filed Vital Signs Not on file Plan of Treatment Not on file Results Not on fileafter 03/02/2019 Insurance Payer Benefit Plan / Group Subscriber ID Type Phone A ddress MEDICARE MEDICARE A B xxxxxxxxxxx Medicare AETNA - MGD CARE AETNA HMO POS QPOS xxxxxxxxx HMO/POS [phone] [id number] [place] [id number]
--- OUTSIDE RECORDS SUMMARY | 2020-03-02 17:21 | XMS REPORT | Clinical Summary ---
:1955 Author Organization [facility] Address [address] [place] [address] Care Team Providers Name Role Phone Anthony Rice MD Primary Care Provider Allergies Active Allergy Reactions Severity Noted Date Comments No Known Drug Allergies 02/13/2016 Medications Medication Sig Dispensed Refills Start End Date Status Date senna (SENOKOT) Take 2 tablets by 0 Active 8.6 mg tablet mouth nightly. multivitamin with Take 1 tablet by 0 Active minerals tablet mouth 2 (two) times a day. alum-mag Take 20 mL by 0 Active hydroxide-simeth mouth 4 (four) (MAALOX PLUS) times a day as 200-200-20 mg/5 needed for mL suspension indigestion or heartburn. clonIDINE Place 1 patch 0 05/19/20 Active (CATAPRES-TTS) (0.1 mg total) on 20 0.1 mg/24 hr the skin once a week. pantoprazole Take 1 tablet (40 0 Active (PROTONIX) 40 MG mg total) by 9 EC tablet mouth daily. docusate sodium Take 100 mg by 0 05/14/20 Discontinued (COLACE) 100 MG mouth daily. 19 ( Stop Taking at capsule Discharge) levothyroxine Take 75 mcg by 0 05/14/20 D iscontinued (SYNTHROID, mouth every 19 (Stop Taking at LEVOXYL) 75 mcg morning. Disc harge) tablet acyclovir Take 800 mg by 0 05/14/20 Disco ntinued (ZOVIRAX) 800 MG mouth 3 (three) 19 (Stop Taking at tablet times a day. Dischar ge) acetaminophen-cod Take 1 tablet by 0 05/14 Discontinued eine (TYLENOL mouth every 6 19 (S top Taking at WITH CODEINE #3) (six) hours as Discharge) 300-30 mg per needed for tablet moderate pain. loperamide Take 2 mg by 0 05/14/20 Discon tinued (IMODIUM) 2 mg mouth as needed 19 (Stop Taking at capsule for diarrhea. Prn Di scharge) q 6hrs for diarrhea enoxaparin Inject 30 mg 0 05/14/20 Discon tinued (LOVENOX) 30 under the skin 19 (S top Taking at mg/0.3 mL syringe daily. Daily at Discharge) 0900 collagenase Apply topically 0 05/14/20 Di scontinued (SANTYL) ointment daily. Apply to R 19 (Stop Taking at Lateral lower leg Di scharge) chlorhexidine Apply topically 0 05/14/20 Discontinued gluconate 2 % daily. Apply to R 19 (Stop Taking at liquid lateral lower leg Di scharge) wound.clense with chlorhexidine . acyclovir Take 1 capsule 20 capsule 0 06/13/20 Expi red (ZOVIRAX) 200 MG (200 mg total) by 06 20 capsule mouth 2 (two) times a day for 30 days. levothyroxine Take 1 tablet 30 tablet 0 06/14/20 Ex pired (SYNTHROID, (100 mcg total) 06 20 LEVOXYL) 100 mcg by mouth every tablet morning for 30 days. acetaminophen Take 2 tablets 0 06/13/20 E xpired (TYLENOL) 325 MG (650 mg total) by 06 20 tablet mouth every 6 (six) hours as needed for mild pain or fever for up to 30 days. aspirin (ECOTRIN) Take 1 tablet (81 30 tablet 0 06/02 81 MG enteric mg total) by 06 20 coated tablet mouth daily for 30 days. atorvastatin Take 1 tablet (10 30 tablet 11 06/13/20 (LIPITOR) 10 MG mg total) by 06 20 tablet mouth nightly for 30 days. L. Take 2 capsules 0 06/14/20 Expi red acidophilus,casei by mouth daily 06 20 ,rhamnosus (BIO K for 30 days. PLUS) 50 billion cell capsule,delayed release(DR/EC) capsule SITagliptin Take 1 tablet (25 30 tablet 0 06/14/20 (JANUVIA) 25 MG mg total) by 06 20 tablet mouth daily with breakfast for 30 days. cefpodoxime Take 1 tablet 0 05/20/20 Expi red (VANTIN) 200 MG (200 mg total) by 06 20 tablet mouth 3 (three) times a week for 5 days. acetaminophen-cod Take 1 tablet by 20 tablet 0 05/21 eine (TYLENOL mouth every 6 06 20 WITH CODEINE #3) (six) hours as 300-30 mg per needed for tablet moderate pain for up to 7 days. 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 Never 05/03/2019 How many drinks containing alcohol do you have on a typical Not asked day when you are drinking? How often do you have six or more drinks on one occasion? No t asked Sex Assigned at Date Recorded Not on file Job Start Date Occupation Industry Not on file Not on file Not on file Travel History Travel Start Travel End No recent travel history available. Last Filed Vital Signs Vital Sign Reading Time Taken Comments Blood Pressure 144/67 05/14/2019 11:47 AM CDT Pulse 80 05/14/2019 11:47 AM CDT Temperature 36.3 C (97.4 F) 05/14/2019 11:47 AM CDT Respiratory Rate 17 05/14/2019 11:47 AM CDT Oxygen Saturation 97% 05/14/2019 11:47 AM CDT Inhaled Oxygen Concentration - - Weight 72.7 kg (160 lb 4.8 oz) 05/14/2019 4:10 AM CDT Height - - Body Mass Index - - Plan of Treatment Health Maintenance Due Date Last Done Comments DIABETIC RETINAL EYE EXAM 1955 DIABETIC FOOT EXAM 12/18/1963 URINE MICROALBUMIN 12/18/1963 COLONOSCOPY SCREENING 12/18/2003 SHINGLES VACCINES (#1) 12/18/2003 65+ PNEUMOCOCCAL VACCINE (1 of 2 - PCV13) 2018 INFLUENZA VACCINE 05/02/2020 Procedures Procedure Name Priority Date/Time Associated Comments Diagnosis ESTIMATED GFR Routine 05/14/2019 5:30 Results fo r this AM CDT procedure are i n the results section. HC COMPLETE BLD COUNT Routine 05/14/2019 5:30 Re sults for this W/AUTO DIFF AM CDT procedure are i n the results section. BASIC METABOLIC PANEL Routine 05/14/2019 5:30 Re sults for this AM CDT procedure are i n the results section. POC GLUCOSE Routine 05/13/2019 12:35 Results for this PM CDT procedure are i n the results section. ESTIMATED GFR Routine 05/13/2019 5:20 Results fo r this AM CDT procedure are i n the results section. HC COMPLETE BLD COUNT Routine 05/13/2019 5:20 Re sults for this W/AUTO DIFF AM CDT procedure are i n the results section. BASIC METABOLIC PANEL Routine 05/13/2019 5:20 Re sults for this AM CDT procedure are i n the results section. POC GLUCOSE Routine 05/12/2019 8:56 Results for this PM CDT procedure are i n the results section. POC GLUCOSE Routine 05/12/2019 5:01 Results for this PM CDT procedure are i n the results section. HEMODIALYSIS Routine 05/12/2019 11:25 AM CDT ESTIMATED GFR Routine 05/12/2019 5:10 Results fo r this AM CDT procedure are i n the results section. HC COMPLETE BLD COUNT Routine 05/12/2019 5:10 Re sults for this W/AUTO DIFF AM CDT procedure are i n the results section. BASIC METABOLIC PANEL Routine 05/12/2019 5:10 Re sults for this AM CDT procedure are i n the results section. ESTIMATED GFR Routine 05/11/2019 4:40 Results fo r this AM CDT procedure are i n the results section. BASIC METABOLIC PANEL Routine 05/11/2019 4:40 Re sults for this AM CDT procedure are i n the results section. HC COMPLETE BLD COUNT Routine 05/11/2019 4:40 Re sults for this W/AUTO DIFF AM CDT procedure are i n the results section. POC GLUCOSE Routine 05/10/2019 6:16 Results for this PM CDT procedure are i n the results section. HEMODIALYSIS Routine 05/10/2019 9:39 AM CDT POC GLUCOSE Routine 05/10/2019 7:54 Results for this AM CDT procedure are i n the results section. ESTIMATED GFR Routine 05/10/2019 4:40 Results fo r this AM CDT procedure are i n the results section. BASIC METABOLIC PANEL Routine 05/10/2019 4:40 Re sults for this AM CDT procedure are i n the results section. HC COMPLETE BLD COUNT Routine 05/10/2019 4:40 Re sults for this W/AUTO DIFF AM CDT procedure are i n the results section. POC GLUCOSE Routine 05/10/2019 12:24 Results for this AM CDT procedure are i n the results section. POC GLUCOSE Routine 05/09/2019 4:22 Results for this PM CDT procedure are i n the results section. AMMONIA LEVEL STAT 05/09/2019 12:00 Results fo r this PM CDT procedure are i n the results section. POC GLUCOSE Routine 05/09/2019 11:35 Results for this AM CDT procedure are i n the results section. POC GLUCOSE Routine 05/09/2019 6:48 Results for this AM CDT procedure are i n the results section. ESTIMATED GFR Routine 05/09/2019 4:45 Results fo r this AM CDT procedure are i n the results section. PROTHROMBIN TIME WITH Routine 05/09/2019 4:45 Re sults for this INR AM CDT procedure are i n the results section. BASIC METABOLIC PANEL Routine 05/09/2019 4:45 Re sults for this AM CDT procedure are i n the results section. HC COMPLETE BLD COUNT Routine 05/09/2019 4:45 Re sults for this W/AUTO DIFF AM CDT procedure are i n the results section. POC GLUCOSE Routine 05/09/2019 12:32 Results for this AM CDT procedure are i n the results section. POC GLUCOSE Routine 05/08/2019 6:14 Results for this PM CDT procedure are i n the results section. POC GLUCOSE Routine 05/08/2019 1:57 Results for this PM CDT procedure are i n the results section. ESTIMATED GFR Routine 05/08/2019 8:28 Results fo r this AM CDT procedure are i n the results section. PROTHROMBIN TIME WITH Routine 05/08/2019 8:28 Re sults for this INR AM CDT procedure are i n the results section. BASIC METABOLIC PANEL Routine 05/08/2019 8:28 Re sults for this AM CDT procedure are i n the results section. HC COMPLETE BLD COUNT Routine 05/08/2019 8:28 Re sults for this W/AUTO DIFF AM CDT procedure are i n the results section. POC GLUCOSE Routine 05/08/2019 6:38 Results for this AM CDT procedure are i n the results section. POC GLUCOSE Routine 05/08/2019 6:37 Results for this AM CDT procedure are i n the results section. POC GLUCOSE Routine 05/07/2019 11:57 Results for this PM CDT procedure are i n the results section. POC GLUCOSE Routine 05/07/2019 4:28 Results for this PM CDT procedure are i n the results section. EEG AWAKE/ASLEEP LESS Routine 05/07/2019 4:09 Re sults for this THAN 41 MIN PM CDT procedure are i n the results section. POC GLUCOSE Routine 05/07/2019 12:10 Results for this PM CDT procedure are i n the results section. CT HEAD WO CONTRAST Routine 05/07/2019 11:12 Resu lts for this AM CDT procedure are i n the results section. HEMODIALYSIS Routine 05/07/2019 9:56 AM CDT ESTIMATED GFR Routine 05/07/2019 5:00 Results fo r this AM CDT procedure are i n the results section. BASIC METABOLIC PANEL Routine 05/07/2019 5:00 Re sults for this AM CDT procedure are i n the results section. HC COMPLETE BLD COUNT Routine 05/07/2019 5:00 Re sults for this W/AUTO DIFF AM CDT procedure are i n the results section. POC GLUCOSE Routine 05/06/2019 4:14 Results for this PM CDT procedure are i n the results section. RI AN ELECTIVE Routine 05/06/2019 3:22 SUPRAGLOTTIC AIRWAY PM CDT Procedure Note - Henok Steele CRNA - 05/06/2019 3:22 PM CDT Airway Date/Time: 05/06/2019 3:15 PM Performed by: Neftali Steele CRNA Authorized by: Janine Christian MD Location: OR Urgency: Elective Difficult Airway: No Anesthesiologist: Kim Christian MD Resident/HEALTHCARE BUSINESS ANALYST/AA: Thalia Steele CRNA Preoxygenated with 100% O2: Yes C-spine Precautions Maintain ed Throughout: Yes Mask Ventilation: Not attem pted Final Airway Type: Supraglo ttic airway Final LMA: Unique LMA Size: 5 Number of Attempts at Approa ch: 1 POC GLUCOSE Routine 05/06/2019 2:56 PM CDT Resu lts for this procedure are i n the results section . ESTIMATED GFR STAT 05/06/2019 11:55 AM CDT Res ults for this procedure are i n the results section . BASIC METABOLIC PANEL STAT 05/06/2019 11:55 AM CDT Results for this procedure are i n the results section . ECG 12-LEAD STAT 05/06/2019 11:51 AM CDT Resu lts for this procedure are i n the results section . BLOOD CULTURE, AEROBIC & Timed 05/06/2019 8:19 AM CDT Results for this ANAEROBIC procedure are i n the results section . HEMODIALYSIS Routine 05/06/2019 6:47 AM CDT ESTIMATED GFR Routine 05/06/2019 4:50 AM CDT Res ults for this procedure are i n the results section . HC COMPLETE BLD COUNT W/AUTO Routine 05/06/2019 4:50 AM CDT Results for this DIFF procedure are i n the results section . BASIC METABOLIC PANEL Routine 05/06/2019 4:50 AM CDT Results for this procedure are i n the results section . POC GLUCOSE Routine 05/05/2019 5:17 PM CDT Resu lts for this procedure are i n the results section . POC GLUCOSE Routine 05/05/2019 11:38 AM CDT Resu lts for this procedure are i n the results section . POC GLUCOSE Routine 05/05/2019 8:38 AM CDT Resu lts for this procedure are i n the results section . POC GLUCOSE Routine 05/05/2019 5:28 AM CDT Resu lts for this procedure are i n the results section . ESTIMATED GFR Routine 05/05/2019 5:20 AM CDT Res ults for this procedure are i n the results section . HEMOGLOBIN A1C Routine 05/05/2019 5:20 AM CDT Re sults for this procedure are i n the results section . HC COMPLETE BLD COUNT W/AUTO Routine 05/05/2019 5:20 AM CDT Results for this DIFF procedure are i n the results section . BASIC METABOLIC PANEL Routine 05/05/2019 5:20 AM CDT Results for this procedure are i n the results section . POC GLUCOSE Routine 05/04/2019 10:08 PM CDT Resu lts for this procedure are i n the results section . POC GLUCOSE Routine 05/04/2019 5:06 PM CDT Resu lts for this procedure are i n the results section . POC GLUCOSE Routine 05/04/2019 1:04 PM CDT Resu lts for this procedure are i n the results section . POC GLUCOSE Routine 05/04/2019 9:32 AM CDT Resu lts for this procedure are i n the results section . EEG AWAKE/DROWSY LESS THAN Routine 05/04/2019 9:12 AM CDT Results for this 41 MIN procedure are i n the results section . ESTIMATED GFR Routine 05/04/2019 6:10 AM CDT Res ults for this procedure are i n the results section . HC COMPLETE BLD COUNT W/AUTO Routine 05/04/2019 6:10 AM CDT Results for this DIFF procedure are i n the results section . BASIC METABOLIC PANEL Routine 05/04/2019 6:10 AM CDT Results for this procedure are i n the results section . POC GLUCOSE Routine 05/04/2019 5:22 AM CDT Resu lts for this procedure are i n the results section . MRI BRAIN WO CONTRAST Routine 05/04/2019 2:47 AM CDT Results for this procedure are i n the results section . POC GLUCOSE Routine 05/04/2019 2:04 AM CDT Resu lts for this procedure are i n the results section . POC GLUCOSE Routine 05/04/2019 12:50 AM CDT Resu lts for this procedure are i n the results section . POC GLUCOSE Routine 05/03/2019 9:54 PM CDT Resu lts for this procedure are i n the results section . POC GLUCOSE Routine 05/03/2019 5:00 PM CDT Resu lts for this procedure are i n the results section . SYPHILIS TOTAL ANTIBODY Routine 05/03/2019 4:47 PM CDT Results for this procedure are i n the results section . VITAMIN B12 LEVEL Routine 05/03/2019 4:47 PM CDT Results for this procedure are i n the results section . CT HEAD WO CONTRAST Routine 05/03/2019 2:39 PM CDT Results for this procedure are i n the results section . POC GLUCOSE Routine 05/03/2019 11:56 AM CDT Resu lts for this procedure are i n the results section . HEPATITIS B SURFACE ANTIGEN STAT 05/03/2019 10:30 AM CDT Results for this procedure are i n the results section . HEPATITIS B SURFACE AB, Routine 05/03/2019 10:30 AM CDT Results for this QUANTITATIVE procedure are i n the results section . AMMONIA LEVEL Routine 05/03/2019 10:30 AM CDT Res ults for this procedure are i n the results section . CONSULT TO OSTOMY CARE NURSE Routine 05/03/2019 8:48 AM CDT HEMODIALYSIS Routine 05/03/2019 7:48 AM CDT POC GLUCOSE Routine 05/03/2019 7:33 AM CDT Resu lts for this procedure are i n the results section . LACTIC ACID LEVEL, SEPSIS - Timed 05/03/2019 6:00 AM CDT Results for this NOW AND REPEAT 2X EVERY 3 pr ocedure are in the HOURS results section . T4, FREE Routine 05/03/2019 3:00 AM CDT Resu lts for this procedure are i n the results section . THYROID STIMULATING HORMONE Routine 05/03/2019 3:00 AM CDT Results for this procedure are i n the results section . ESTIMATED GFR Routine 05/03/2019 3:00 AM CDT Res ults for this procedure are i n the results section . LACTIC ACID LEVEL, SEPSIS - Timed 05/03/2019 3:00 AM CDT Results for this NOW AND REPEAT 2X EVERY 3 pr ocedure are in the HOURS results section . PROTHROMBIN TIME WITH INR Routine 05/03/2019 3:00 AM CDT Results for this procedure are i n the results section . HC COMPLETE BLD COUNT W/AUTO Routine 05/03/2019 3:00 AM CDT Results for this DIFF procedure are i n the results section . COMPREHENSIVE METABOLIC Routine 05/03/2019 3:00 AM CDT Results for this PANEL procedure are i n the results section . POC GLUCOSE Routine 05/03/2019 1:18 AM CDT Resu lts for this procedure are i n the results section . GRAM STAIN Routine 05/02/2019 11:55 PM CDT Resu lts for this procedure are i n the results section . AEROBIC CULTURE Routine 05/02/2019 11:55 PM CDT R esults for this procedure are i n the results section . GRAM STAIN Routine 05/02/2019 11:55 PM CDT Resu lts for this procedure are i n the results section . ANAEROBIC CULTURE Routine 05/02/2019 11:55 PM CDT Results for this procedure are i n the results section . AEROBIC CULTURE Routine 05/02/2019 11:55 PM CDT R esults for this procedure are i n the results section . BLOOD CULTURE, AEROBIC & Routine 05/02/2019 11:55 PM CDT Results for this ANAEROBIC procedure are i n the results section . ESTIMATED GFR STAT 05/02/2019 11:45 PM CDT Res ults for this procedure are i n the results section . BASIC METABOLIC PANEL STAT 05/02/2019 11:45 PM CDT Results for this procedure are i n the results section . LACTIC ACID LEVEL, SEPSIS - Timed 05/02/2019 11:45 PM CDT Results for this NOW AND REPEAT 2X EVERY 3 pr ocedure are in the HOURS results section . BLOOD CULTURE, AEROBIC & Routine 05/02/2019 11:45 PM CDT Results for this ANAEROBIC procedure are i n the results section . after 03/02/2019 Results Estimated GFR (05/14/2019 5:30 AM CDT)Only the most recent of14 resultswithin the time period is included. Estimated GFR 17 (A) mL/min/1.73 [facility] Comment: m2 [employer] Units Interpretation [facility] G1 >=90 Normal or high G2 60-89 Mildly decreased G3a 45-59 Mildly to moderately decreas ed G3b 30-44 Moderately to severely decre ased G4 15-29 Severely decreased G5 <15 Kidney failure The eGFR was calculated using the Chronic Kidney Disea se Epidemiology Collaboration (CKD-EPI) equation. Interpretation is based on recommendations of the National Kidney Foundation-Kidney Disease Outcomes Jose lity Initiative (NKF-KDOQI) published in 2014. Specimen Plasma specimen Performing Organization Address City/State/Zipcode Phone Number [facility] DEPARTMENT OF PATHOLOGY [address] [facility]. [place] [address] [facility] Blue Egg [facility] [address] [facility] CBC with platelet and differential (05/14/2019 5:30 AM CDT)Only the most recent of12 resultswithin the time period is included. [facility] Signature WBC 7.5 4.5 - 11.0 k/uL [facility] RBC 3.27 (L) 4.40 - 6.00 [facility] m/uL [facility] HGB 9.4 (L) 14.0 - 18.0 [facility] g/dL [facility] HCT 30.4 (L) 41.0 - 51.0 % [facility] MCV 93.0 82.0 - 100.0 fL [facility] MCH 28.7 27.0 - 34.0 pg [facility] MCHC 30.9 (L) 31.0 - 37.0 [facility] g/dL [facility] RDW - SD 52.5 37.0 - 55.0 fL [facility] MPV 9.2 6.9 - 11.0 fL [facility] Platelet count 184 150 - 400 K/uL [facility] Nucleated RBC 0.00 /100 WBC [facility] Neutrophils 62.2 39.0 - 69.0 % [facility] Lymphocytes 16.9 (L) 25.0 - 45.0 % [facility] Monocytes 13.3 (H) 0.0 - 10.0 % [facility] Eosinophils 6.3 (H) 0.0 - 5.0 % [facility] Basophils 0.8 0.0 - 1.0 % [facility] Immature granulocytes 0.5 0.0 - 1.0 % [facility] Specimen Blood Performing Organization Address City/State/Zipcode Phone Number [facility] DEPARTMENT OF PATHOLOGY [address] [place] [id number] AND GENOMIC MEDICINE [facility] [address] Basic metabolic panel (05/14/2019 5:30 AM CDT)Only the most recent of13 results within the time period is included. [facility] Sig nature Sodium 136 135 - 148 mEq/L [facility] Potassium 4.0 3.5 - 5.0 mEq/L [facility] Chloride 98 98 - 112 mEq/L [facility] CO2 25 24 - 31 mEq/L [facility] Anion gap 13@ANIO 7 - 15 mEq/L [facility] BUN 26 (H) 8 - 23 mg/dL [facility] Creatinine 3.55 (H) 0.70 - 1.20 mg/dL [facility] Glucose 83 65 - 99 mg/dL [facility] Calcium 8.6 (L) 8.8 - 10.2 mg/dL [facility] Specimen Plasma specimen Performing Organization Address City/[facility]/Zipcode Phone Number [facility] DEPARTMENT OF PATHOLOGY [address] [place] [address] POC glucose (05/13/2019 12:35 PM CDT)Only the most recent of35 resultswithin the time period is included. Pathologist Sig nature POC glucose 69 65 - 99 mg/dL [facility] Comment: [facility] RN Notified Meter ID: [id number] [employer] Breaker: Michelle Cervantes Specimen Performing Organization Address [facility]/Zipcode Phone Number [facility] DEPARTMENT OF PATHOLOGY [address] [place] [address] Ammonia level (05/09/2019 12:00 PM CDT)Only the most recent of2 resultswithin the time period is included. Pathologist Sig nature Ammonia 14 (L) 16 - 60 umol/L [facility] Specimen Plasma specimen Performing Organization Address City/[facility]/Zipcode Phone Number [facility] DEPARTMENT OF PATHOLOGY [address] [place] [address] Prothrombin time with INR (05/09/2019 4:45 AM CDT)Only the most recent of3 resultswithin the time period is included. Prothrombin time 21.0 (H) 11.5 - 14.5 [facility] INR 1.9 [facility] Comment: [facility] International Normalized Ratio (INR) is a therapeu [facility] monitoring tool for patients who are stable on oral anticoagulant therapy. An INR of 2.0-3.0 is suggested for deep vein thrombosis/pulmonary embolism. Specimen Blood Performing Organization Address City/State/Zipcode Phone Number [facility] DEPARTMENT OF PATHOLOGY [address] [facility], [place] [address] AND GENOMIC MEDICINE [facility] [address] [facility], [place] [address] HOSPITAL EEG (routine) (05/07/2019 4:09 PM CDT) Narrative Performed At This result has an attachment that is no t available. Date of Study Completion: May 07, 2019 Date of Interpretation: May 07, 2019 Ordering Provider: Dr. Mason Claire Inpatient Electroencephalogram Report History: 63 year old man being treated for persistent encephalopathy. Please evaluate the underlying cerebral activity and r ule out interictal epileptiform discharges. Technical Description: The recording was started at 15:36 and ended at 15:58 on 05/07/2019. It was a digitally recorded multi-montage EEG with 21 electro jeremy placed according to the International 10/20 system. An EKG strip was re corded continuously. True eye leads were not employed. True temporal lead s were not employed. EEG Description: Cerebral activity consisted of continuous delta and th eta frequency discharges with superimposed triphasic activity seen o mart the bifrontal garrison. Overall adequate symmetry was maintained. No definitive interictal epileptiform discharges or el ectrographic seizures were appreciated. Sleep Recording: Stage II sleep was not recorded. Activation Procedures: Neither hyperventilation nor photic stimulation were a ttempted. EEG Interpretation: This was an abnormal awake and d rowsy EEG. 1. Triphasic discharges. 2. Continuous background slowing. 3. No paroxysmal discharges were observed. Clinical Correlation: 1. There was evidence of a moderate encephalopathy, pa rt of which is metabolic in etiology. Clinical correlation is recomme nded. 2. There was no definitive evidence of interictal epil eptiform discharges, electrographic seizures, or status epilepticus seen ov er the course of this tracing. CT Head Wo Contrast (05/07/2019 11:12 AM CDT)Only the most recent of2 results within the time period is included. Specimen Narrative Performed At EXAMINATION: CT HEAD WO CONTRAST [facility] CLINICAL HISTORY: AMS confusion COMPARISON: CT brain from May. MRI br ain from May 04, 2019 TECHNIQUE: Noncontrast enhanced images of the brain we re obtained from the skull base to the vertex. Both soft tissue and bon e reconstruction algorithms were performed. CT scans are performed us ing radiation dose reduction techniques. Technical factors are evaluated and adjusted to ensure appropriate moder ation of exposure. Automated dose management technology is applied to adj ust radiation exposure while achieving a diagnostic qu ality image. FINDINGS: Artifacts obscure some details. There is no definite evidence of acute intracranial he morrhage or mass, hydrocephalus or midline shift, stroke or thrombus. Th ere is nonspecific enlargement of the ventricles and extra-axial space gr eater in the anterior region. There are nonspecific white matter changes. There is calcination of duarte of some of the arteries. There is pseudophakia. There is nonspecific increased bone density. The orbit s, sinuses and mastoid air cells do not show significant acute abnorm ality. There is a small amount of fluid in the inferior right mastoid ai r cells which is relatively stable. IMPRESSION: No acute findings in the brain or extra axial region. [facility]-[id number] Procedure Note Hm Interface, Radiology Results Incoming - 05/07/2019 11:23 AM CDT EXAMINATION: CT HEAD WO CONTRAST CLINICAL HISTORY: AMS confusion COMPARISON: CT brain from May. MRI brain from May 04, 2019 TECHNIQUE: Noncontrast enhanced images o f the brain were obtained from the skull base to the vertex. Both soft tissue and bone reconstruction algorithms were performed. CT scans are performed using radiation dose reduction techniques. Technical factors are evaluated and adjusted to ensure gemma ropriate moderation of exposure. Automated dose management technology is applied to adjust radiation exposure while achieving a diagnostic quality image. FINDINGS: Artifacts obscure some details. There is no definite evidence of acute i ntracranial hemorrhage or mass, hydrocephalus or midline shift, stroke or thrombus. There is nonspecific enlargement of the ventricles and extra-axial space greater in the anterior region. There are nonspecific white matter changes. There is calcinati on of duarte of some of the arteries. There is pseudophakia. There is nonspecific increased bone dens ity. The orbits, sinuses and mastoid air cells do not show significant acute abnormality. There is a small amount of fluid in the inferior right mastoid air cells which is relatively stable. IMPRESSION: No acute findings in the brain or extra axial region. [id number] Performing Organization Address City/[facility]/Zipcode Phone Number [facility] [address] [place] [address] ECG 12 lead (05/06/2019 11:51 AM CDT) Pathologist Sig nature Ventricular rate 95 [facility] Atrial rate 95 [facility] RI interval 168 [facility] QRSD interval 80 [facility] QT interval 344 [facility] QTC interval 432 [facility] P axis 1 42 [facility] QRS axis 1 -9 [facility] T wave axis 31 [facility] EKG impression Normal sinus HM MUSE rhythm-Normal ECG-In automated comparison with ECG of 24-JUN-2010 11:35,-No significant change was found- Specimen Narrative Performed At This result has an attachment that is no t available. Performing Organization Address [facility] Cent[facility]ode Phone Number [facility] MUSE [address] [place] [address] Blood culture, aerobic & anaerobic (05/06/2019 8:19 AM CDT)Only the most recent of3 resultswithin the time period is included. Blood culture No growth after 5 days of incubation. KSENIA MONROE isolate Comment: HOSPITAL Specimen Information Specimen Source: Blood Specimen Site: Dialysis catheter Specimen Blood - Dialysis catheter Performing Organization Address City/[facility]/Zipcode Phone Number [facility] DEPARTMENT OF PATHOLOGY AND [address] [place] [phone] [facility] [address] [address] Hemoglobin A1c (05/05/2019 5:20 AM CDT) Hemoglobin A1C 4.7 4.0 - 5.6 % [facility] Comment: [place] HbA1c cutoffs for diagnosing diabetes: KSENIA OCASIO 4.0% - 5.6% = normal 5.7% - 6.4% = increased risk for diabetes (prediabetes ) >=6.5% = diabetes Goals for glycemic control (ADA 2016) < 7.0% Target for non adults with diabetes. More or less stringent targets may be appropriate for individual patients. <7.5% Target for Children and adolescents with type 1 diabetes. Specimen Blood Performing Organization Address City/State/Zipcode Phone Number [facility] DEPARTMENT OF PATHOLOGY [address] [facility] [address] [facility] [place] [address] [facility] [address] HOSPITAL EEG (routine) (05/04/2019 9:12 AM CDT) Narrative Performed At This result has an attachment that is no t available. Date of Study Completion: May 04, 2019 Date of Interpretation: May 04, 2019 Ordering Provider: Dr. Mason Claire Inpatient Electroencephalogram Report History: 63 year old man being treated for persistent encephalopathy. Please evaluate the underlying cerebral activity and r ule out interictal epileptiform discharges. Technical Description: The recording was started at 9:06 AM and ended at 9:27 AM on 05/04/2019. It was a digitally recorded multi-montage EEG with 21 aileen ctrodes placed according to the International 10/[address] rip was recorded continuously. True eye leads were not employed. True temporal leads were not employed. EEG Description: Cerebral activity consisted of continuous polymorphic delta and theta frequency discharges. Superimposed on this background were triphasic discharges seen over the bifrontal garrison. No definiti ve interictal epileptiform discharges or electrographic seizures wer e appreciated. Sleep Recording: Stage II sleep was not recorded. Activation Procedures: Hyperventilation was not attempted. Photic stimulation utilizing flash frequencies ranging from 5 to 30 Hz did not elicit a d riving response. EEG Interpretation: This was an abnormal awake and d rowsy EEG. 1. Triphasic discharges. 2. Continuous background slowing. 3. No paroxysmal discharges were observed. Clinical Correlation: 1. There was evidence of a moderate encephalopathy, pa rt of which is metabolic in etiology. Clinical correlation is recomme nded. 2. There was no definitive evidence of interictal epil eptiform discharges, electrographic seizures, or status epilepticus seen ov er the course of this tracing. MRI Brain Wo Contrast (05/04/2019 2:47 AM CDT) Specimen Narrative Performed At This result has an attachment that is no t available. EXAMINATION: MRI BRAIN WO CONTRAST HM [facility] CLINICAL HISTORY: acute confusion COMPARISON: 05/03/[address] TECHNIQUE: Multiplanar and multisequence MRI imaging of the brain was obtained without contrast. FINDINGS: No diffusion restriction to suggest acut e ischemia. No abnormal susceptibility to suggest intracranial hemorrhage. There is generalized brain parenchymal v olume loss. Patchy T2/FLAIR hyperintense foci within the subcortical and periventricular white matter, likely chronic microangiopathic changes. No acute hydrocephalus or extra-axial fl uid collection identified. No intracranial mass effect. Midline structures are maintained. The major flow voids in the skull base are identified. Visualized paranasal sinuses and mastoid air cells are clear. Orbits are unremarkable. Visualized soft tissue shows no gross abnormalities. IMPRESSION: No acute intracranial abnormality. [facility]-[id number] Procedure Note Interface, Radiology Results Incoming - 05/04/2019 3:04 AM CDT EXAMINATION: MRI BRAIN WO CONTRAST CLINICAL HISTORY: acute confusion COMPARISON: 05/03/[address] TECHNIQUE: Multiplanar and multisequence MRI imaging of the brain was obtained without contrast. FINDINGS: No diffusion restriction to suggest acut e ischemia. No abnormal susceptibility to suggest intracranial hemorrhage. There is generalized brain parenchymal v olume loss. Patchy T2/FLAIR hyperintense foci within the subcortical and periventricular white matter, likely chronic microangiopathic changes. No acute hydrocephalus or extra-axial fl uid collection identified. No intracranial mass effect. Midline structures are maintained. The major flow voids in the skull base are identified. Visualized paranasal sinuses and mastoid air cells are clear. Orbits are unremarkable. Visualized soft tissue shows no gross abnormalities. IMPRESSION: No acute intracranial abnormality. [facility]-[id number] Performing Organization Address City/[facility]/Zipcode Phone Number [facility] [address] [place] [address] Syphilis total antibody (05/03/2019 4:47 PM CDT) Syphilis total Non-reactiveComment Non-reactive [facility] antibody : No serological HOSPITAL evidence of syphilis infection. Specimen Serum Performing Organization Address City/[facility]/Zipcode Phone Number [facility] DEPARTMENT OF PATHOLOGY AND [address] [place], [place] [phone] [address] [address] Vitamin B12 level (05/03/2019 4:47 PM CDT) Vitamin B12 1,098 (H) 211 - 946 [facility] Comment: pg/mL HOSPITAL Significant overlap exists between normal and deficien cy states. However, most patients with deficiencies will have Ser um B12 <200 pg/mL. Specimen Serum Performing Organization Address City/State/Zipcode Phone Number [facility] DEPARTMENT OF PATHOLOGY AND [address] [place] [phone] [facility] [address] [place] [phone] Hepatitis B surface Ab, quantitative (05/03/2019 10:30 AM CDT) Hepatitis B surface 86.38 IU/L [facility] Comment: The anti-HBs is greater than or equal to 10 IU/L. This patient has either had an antibody response to HBV vaccination, re ceived a transfusion, or has recovered from HBV infection. This patient should be considered immune to hepatitis B. An anti-HBs result greater than or equal to 10 IU/L im plies immunity. For post-vaccination antibody testing guidel adelfo for the general public refer to MMWR September 23, 2005/Vol. 54 (No. 16);10-24, and for healthcare workers refer to MMWR Sep/Vol. 62(No. 10);10-20. Reference Interval: anti-HBs 9.99 IU/L or less ....... Negative 10.00 IU/L or greater .... Positive Results greater than 1,000.00 IU/L are reported as gre ater than 1,000.00 IU/L. This assay should not be used for blood donor screenin g, associated re-entry protocols, or for screening Human Cell, Tissues and Cellular and Tissue-Based Products (HCT/P) . Performed by [facility], [address] [place] [address] [email or web address], Elie Dick MD - Lab. Director Specimen Serum Performing Organization Address [facility]/Zipcode Phone Number [facility] [address] [place] [address] [facility] [address] [place] [address] Hepatitis B surface antigen (05/03/2019 10:30 AM CDT) Pathologist Sig nature Hepatitis B surface Non-reactive Non-reactive [facility] Specimen Blood Performing Organization Address City/State/Zipcode Phone Number [facility] DEPARTMENT OF PATHOLOGY [phone] [place] [address]. [employer], [place] [address] AND GENOMIC MEDICINE [phone] [place] [address] Lactic acid level, SEPSIS - Now and repeat 2x every 3 hours (05/03/2019 6:00 AM CDT)Only the most recent of3 resultswithin the time period is included. Pathologist Sig nature Lactic acid 0.7 0.5 - 2.2 mmol/L [facility] Specimen Plasma specimen Performing Organization Address [facility] Centercode Phone Number [facility] DEPARTMENT OF PATHOLOGY [address] [place] [address] X [facility] AND [address] X [address] [place] [address] Thyroid stimulating hormone (05/03/2019 3:00 AM CDT) Pathologist Sig nature TSH 95.40 (H) 0.27 - 4.20 uIU/mL [facility] Specimen Blood Performing Organization Address [facility] Centercode Phone Number [facility] DEPARTMENT OF PATHOLOGY [address] [place] [address] X [facility] AND [address] T4, free (05/03/2019 3:00 AM CDT) Pathologist Sig nature T4, free 0.7 (L) 0.9 - 1.7 ng/dL [facility] Specimen Blood Performing Organization Address [facility] Centercode Phone Number [facility] DEPARTMENT OF PATHOLOGY [address] [place] [address] [address] Comprehensive metabolic panel (05/03/2019 3:00 AM CDT) Sodium 128 (L) 135 - 148 [facility] mEq/L [facility] Potassium 5.9 (H) 3.5 - 5.0 [facility] mEq/L [facility] Chloride 90 (L) 98 - 112 mEq/L [facility] CO2 20 (L) 24 - 31 mEq/L [facility] Anion gap 18@ANIO (H) 7 - 15 mEq/L [facility] BUN 70 (H) 8 - 23 mg/dL [facility] Creatinine 8.44 (H) 0.70 - 1.20 [facility] mg/dL [facility] Glucose 92 65 - 99 mg/dL [facility] Calcium 9.5 8.8 - 10.2 [facility] mg/dL [facility] Protein 6.2 (L) 6.3 - 8.3 g/dL [facility] Albumin 3.3 (L) 3.5 - 5.0 g/dL [facility] A/G ratio 1.1 0.7 - 3.8 [facility] Alkaline phosphatase 145 (H) 40 - 129 U/L [facility] AST 22 10 - 50 U/L [facility] ALT 14 5 - 50 U/L [facility] Total bilirubin 0.3 0.2 - 1.2 [facility] mg/dL [facility] Specimen Plasma specimen Performing Organization Address City/[facility] Centercode Phone Number [facility] DEPARTMENT OF PATHOLOGY [address] [facility] [place] [address] AND [facility] [phone] [place] [address] HOSPITAL Aerobic culture (05/02/2019 11:55 PM CDT)Only the most recent of2 resultswithin the time period is included. Aerobic culture Mixed edwige- more than 3 organisms isolated. DOMENICA MONROE isolate Consider resubmitting specimen if clinically indicated . HOSPITAL Comment: Specimen Information Specimen Source: Wound Specimen Site: Right Leg Specimen Wound Performing Organization Address [facility] Centercowa Phone Number [facility] DEPARTMENT OF PATHOLOGY AND [address] [place] [address] [phone] [address] Gram stain (05/02/2019 11:55 PM CDT)Only the most recent of2 resultswithin the time period is included. Gram stain isolate No WBC's or organisms seen. DOMENICA MONROE Comment: HOSPITAL Specimen Information Specimen Source: Wound Specimen Site: Right Leg Specimen Wound Performing Organization Address City/[facility] Centercode Phone Number [facility] DEPARTMENT OF PATHOLOGY AND [address] [place] [address] [phone] [address] Anaerobic culture (05/02/2019 11:55 PM CDT) Anaerobic culture No anaerobic organisms isolated. ABEL BOLIVAR BUDDHIST isolate Comment: HOSPITAL Specimen Information Specimen Source: Wound Specimen Site: Right Leg Specimen Wound - Leg Performing Organization Address City/State/Zipcode Phone Number [facility] DEPARTMENT OF PATHOLOGY AND [address] [place], [place] [address] GENOMIC MEDICINE [facility] [address] [place] [address] after 03/02/2019 Insurance Payer Benefit Plan / Subscriber ID Effective Dates Phone Addre ss Type Group MEDICARE MEDICARE PART A xxxxxxxxxxx 2010-Present [place], [place] Medicare AND B (Home) [id number] [place] [address] Advance Directives For more information, please contact: [phone] Type Date Recorded 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
--- OUTSIDE RECORDS SUMMARY | 2020-03-02 17:24 | XMS REPORT | Summary of Care ---
:1955 Author Organization [facility] Address [address] [place] [address] Care Team Providers Name Role Phone Pcp, Does Not Have A Primary Care Provider Reason for Visit Reason Comments Elbow Pain Right Radial Head Inury Encounter Details Date Type Department Care Team Description 12/30/2019 Office Visit [facility] Orthopaedic Elvis Garrido losecarlene fracture of Surgery- Anahy Farnsworth MD right wrist, initial [address], [address] encounter (Primary Dx) [address] [place] [address] [address] [place], [place] [phone] Allergies No Known Allergiesdocumented as of this encounter (statuses as of 12/30/2019) Medications Medication Sig Dispensed Refills Start Date End Date Status ascorbic acid, vitamin Take 500 mg by 0 Active C, 500 mg tablet mouth. calcium acetate 667 mg Take 667 mg by 0 Active capsule mouth. cilostazoL 100 mg Take 100 mg by 0 Active tablet mouth. clopidogreL 75 mg Take 75 mg by 0 Active tablet mouth. diphenoxylate-atropine Take 2 tablets by 0 Active 2.5-0.025 mg per tablet mouth. potassium chloride 20 Take 20 mEq by 0 Active mEq packet mouth. rosuvastatin 10 mg Take 10 mg by 0 Active tablet mouth. traMADol 50 mg tablet Take 50 mg by 0 Active mouth. documented as of this encounter (statuses as of 12/30/2019) Active Problems Problem Noted Date Left knee injury, initial encounter 02/02/2016 documented as of this encounter (statuses as of 12/30/2019) Social History Tobacco Use Types Packs/Day Years Used Date Never Smoker Smokeless Tobacco: Never Used Alcohol Use Drinks/Week oz/Week Comments Not Asked 0 Standard drinks or equivalent 0.0 Sex Assigned at Date Recorded Not on file Job Start Date Occupation Industry Not on file Not on file Not on file Travel History Travel Start Travel End No recent travel history available. documented as of this encounter Last Filed Vital Signs Not on filedocumented in this encounter Progress Notes Elvis Garrido MD - 12/30/2019 2:00 PM CDT Cc: Chief Complaint Patient presents with Elbow Pain Right Radial Head Inury Emmanuel Boateng is a 64 year old male Chief Complaint Patient presents with Elbow Pain Right Radial Head Inury There were no vitals filed for this visit. [facility] [address] [place] [address] Incident occurred: approx 2 Moshe's ago Incident location: At care home Injury mechanism: attempted to get into his wheelchair after PT and it was not locked. He fell and injured his right elbow. Pain location: right elbow DME status: [facility] films Radiology status: temp splint / in wheelchair All Vitals taken, allergies and all medications reviewed, fall risk assessed. Pain level 8/10. LydiaRamos 12/30/2019 2:17 PM Emmanuel Boateng is a 64 year old male. Elbow Pain This is a new problem. Episode onset: appro 12/10/2019. The problem occurs intermittently. The problem has been waxing and waning. Associated symptoms include joint swelling. The symptoms are aggravated by twisting. He has tried acetaminophen, immobilization and relaxation for the symptoms. The treatment provided moderate relief. Allergies Emmanuel has No Known Allergies. Medications Outpatient Medications Prior to Visit Medication Sig Dispense Refill ascorbic acid, vitamin C, 500 mg tablet Take 500 mg by mouth. calcium acetate 667 mg capsule Take 667 mg by mouth. cilostazoL 100 mg tablet Take 100 mg by mouth. clopidogreL 75 mg tablet Take 75 mg by mouth. diphenoxylate-atropine 2.5-0.025 mg per tablet Take 2 tablets by mouth. potassium chloride 20 mEq packet Take 20 mEq by mouth. rosuvastatin 10 mg tablet Take 10 mg by mouth. traMADol 50 mg tablet Take 50 mg by mouth. No facility-administered medications prior to visit. Histories Past Medical History: Diagnosis Date ESRD (end stage renal disease) on dialysis HTN (hypertension) PAD (peripheral artery disease) Past Surgical History: Procedure Laterality Date CHOLECYSTECTOMY Social History Socioeconomic History Marital status: Spouse name: Not on file Number of children: Not on file Years of education: Not on file Highest education level: Not on file Occupational History Not on file Social Needs Financial resource strain: Not on file Food insecurity: Worry: Not on file Inability: Not on file Transportation needs: Medical: Not on file Non-medical: Not on file Tobacco Use Smoking status: Never Smoker Smokeless tobacco: Never Used Substance and Sexual Activity Alcohol use: Not on file Drug use: Not on file Sexual activity: Not on file Lifestyle Physical activity: Days per week: Not on file Minutes per session: Not on file Stress: Not on file Relationships Social connections: Talks on phone: Not on file Gets together: Not on file Attends methodist service: Not on file Active member of club or organization: Not on file Attends meetings of clubs or organizations: Not on file Relationship status: Not on file Intimate partner violence: Fear of current or ex partner: Not on file Emotionally abused: Not on file Physically abused: Not on file Forced sexual activity: Not on file Other Topics Concern Not on file Social History Narrative Not on file History reviewed. No pertinent family history. Review of Systems Constitutional: Negative. HENT: Negative. Eyes: Negative. Respiratory: Negative. Breasts: Negative. Cardiovascular: Negative. Gastrointestinal: Negative. Genitourinary: Negative. Musculoskeletal: Positive for joint swelling. Skin: Negative. Neurological: Negative. Psychiatric/Behavioral: Negative. Endocrine: Endocrine negative Vital Signs There were no vitals taken for this visit. Physical Exam Musculoskeletal: General: Well-developed well-nourished oriented to person place and time HEENT normocephalic atraumatic atraumatic pupils equal round reactive to light extraocular muscles intact Cervical thoracic and lumbar spine without focal deficit normal kyphosis and lordosis Chest clear to auscultation and percussion Cardiovascular regular rate and rhythm without gallop rub or murmur soft without organomegaly Normal bowel sounds Neurologic: Focal myotome or dermatomal deficits Vascular: Intact symmetrical bilateral upper and lower extremities Skin without stasis varicosities or breakdown Extremities without cyanosis clubbing or edema Lymphatics no peripheral lymphedema Psych normal mood and affect. Neurovascular function is intact. To include brisk capillary refill warm pink skin active motor function and sensory function intact. Nursing note and vitals reviewed. Assessment/Plan Right distal radius fracture Patient placed into a velcro wrist brace. Follow up 6 weeks from the date of injury. documented in this encounter Plan of Treatment Date Type Specialty Care Team Description 02/10/2020 Office Visit Orthopedic Surgery Jony Garrido MD [address] [place] [address] [phone] Health Maintenance Due Date Last Done Comments HEPATITIS C (HCV) SCREEN 1955 DTaP,Tdap,and Td Vaccines (1 - Tdap) 1964 COLONOSCOPY 12/18/2003 Zoster Recombinant Vaccine (SHINGRIX) (1 of 2) 12/18/2003 Medicare Wellness Visit 2018 PNEUMOCOCCAL VACCINES 65+ (1 of 2 - PCV13) 2018 INFLUENZA VACCINE (#1) 2019 documented as of this encounter Results Not on filedocumented in this encounter Visit Diagnoses Diagnosis Closed fracture of right wrist, initial encounter - Primary documented in this encounter Insurance Payer Benefit Plan / Subscriber ID Effective Dates Phone Addre ss Type Group MEDICARE MEDICARE PART xxxxxxxxxxx 2010-Erika [phone] Medicare A & B nt 2 [id number] ASHWINI ZIMMERMAN [id number] (Home) JAY GARCIA [phone] [id number] (Work) documented as of this encounter
--- OUTSIDE RECORDS SUMMARY | 2020-03-02 17:24 | XMS REPORT | Summary of Care ---
:1955 Author Organization [facility] Address [address] [place] [address] Care Team Providers Name Role Phone Pcp, Does Not Have A Primary Care Provider Reason for Visit Reason Comments Elbow Pain Right Radial Head Inury Encounter Details Date Type Department Care Team Description 12/30/2019 Office Visit [facility] Orthopaedic Elvis Garrido losecarlene fracture of Surgery- Anahy Farnsworth MD right wrist, initial [address], [address] encounter (Primary Dx) [address] [place] [address] [place] [address] [address] [place], [place] [phone] Allergies No Known Allergiesdocumented as of this [...] were no vitals filed for this visit. [facility] [address] [place] [address] Incident occurred: approx 2 Moshe's ago Incident location: At correction Injury mechanism: attempted to get into his [...] file Gets together: Not on file Attends sikh service: Not on file Active member of [...] Office Visit Orthopedic Surgery Jony Garrido MD [address] [place] [address] [phone] Health Maintenance Due Date Last Done [...] [address]OX Medicare A & B nt 2 [id number] ASHWINI ZIMMERMAN [phone] (Home) JAY GARCIA [phone] (Work) documented as of this encounter
--- OUTSIDE RECORDS SUMMARY | 2020-03-02 17:24 | XMS REPORT | Summary of Care ---
:1955 Author Organization [facility] Address [address] [place] [id number] Care Team Providers Name Role Phone Pcp, Does Not Have A Primary Care Provider Reason for Referral Radiology Services (Routine) Status Reason Specialty Diagnoses / Referred By Referred To Procedures Contact Contact New Request Diagnostic Diagnoses Closed fracture of right wrist, initial encounter Elvis Garrido Radiology Procedures XR WRIST <3 VW RIGHT Javad MD [address] [facility] [place] [address] Reason for Visit Reason Comments Follow-up Wrist Pain right wrist fx DOI 12/20/19 Encounter Details Date Type Department Care Team Description 02/12/2020 Office Visit [facility] Orthopaedic Elvis Garrido losed fracture of Surgery- Anahy Farnsworth MD right wrist, initial [address] encounter (Primary Dx) [place] [address] [address] [place], [place] [phone] Allergies No Known Allergiesdocumented as of this encounter (statuses as of 02/12/2020) Medications Medication Sig Dispensed Refills Start Date [...] as of this encounter (statuses as of 02/12/2020) Active Problems Problem Noted Date Left knee injury, initial encounter 02/02/2016 documented as of this encounter (statuses as of 02/12/2020) Social History Tobacco Use Types Packs/Day Years [...] of this encounter Last Filed Vital Signs Vital Sign Reading Time Taken Comments Blood Pressure - - Pulse - - Temperature - - Respiratory Rate - - Oxygen Saturation - - Inhaled Oxygen Concentration - - Weight 71.7 kg (158 lb) 02/12/2020 2:43 PM CDT Height 162.6 cm (5' 4") 02/12/2020 2:43 PM CDT Body Mass Index 27.12 02/12/2020 2:43 PM CDT documented in this encounter Progress Notes Elvis Garrido MD - 02/12/2020 2:45 PM CDT Cc: Chief Complaint Patient presents with Follow-up Wrist Pain right wrist fx DOI 12/20/19 Emmanuel Boateng is a 64 year old male. Elbow Pain This is a new problem. Episode onset: appro 12/10/2019. The problem occurs intermittently. The problem has been waxing and waning. Pertinent negatives include no joint swelling. The symptoms are aggravated by [...] file Gets together: Not on file Attends hoahaoism service: Not on file Active member of [...] file Social History Narrative Not on file No family history on file. Review of Systems Constitutional: Negative. HENT: Negative. Eyes: Negative. Respiratory: Negative. Breasts: Negative. Cardiovascular: Negative. Gastrointestinal: Negative. Genitourinary: Negative. Musculoskeletal: Negative for joint swelling. Skin: Negative. Neurological: Negative. Psychiatric/Behavioral: Negative. Endocrine: Endocrine negative Vital Signs Ht 64" (162.6 cm) | Wt 71.7 kg (158 lb) | BMI 27.12 kg/m Physical Exam Musculoskeletal: General: Well-developed well-nourished oriented [...] intact. Nursing note and vitals reviewed. Assessment/Plan Diagnosis: Right Distal Radius Fracture Plan Patient may d/c use of the splint, only wear it when he is out and about. Ay remove splint to sleep at night. He has a slow healing fracture due to his underlying conditions. Follow up prn. documented in this encounter Plan of Treatment Health Maintenance Due Date Last Done Comments HEPATITIS C (HCV) SCREEN 1955 DTaP,Tdap,and Td Vaccines (1 - Tdap) 1964 COLONOSCOPY 12/18/2003 Zoster Recombinant Vaccine (SHINGRIX) (1 of 2) 12/18/2003 Medicare Wellness Visit 2018 PNEUMOCOCCAL VACCINES 65+ (1 of 2 - PCV13) 2018 INFLUENZA VACCINE (Season Ended) 2020 documented as of this encounter Results XR WRIST <3 VW RIGHT (02/12/2020 2:42 PM CDT) Specimen Narrative Performed At This result has an attachment that is no t available. Arrived with films. None taken in office. PACS Performing Organization Address City/State/Zipcode Phone Number PACS documented in this encounter Visit Diagnoses Diagnosis Closed fracture of right wrist, initial encounter - Primary documented in this encounter Insurance Payer Benefit Plan / Subscriber ID Effective Dates Phone Addre ss Type Group MEDICARE MEDICARE PART xxxxxxxxxxx 2010-Prese [phone] Medicare A & B nt 2 [id number] ASHWINI ZIMMERMAN [phone] (Home) JAY GARCIA [phone] (Work) documented as of this encounter
--- OUTSIDE RECORDS SUMMARY | 2020-03-02 17:24 | XMS REPORT | Summary of Care ---
:1955 Author Organization [facility] - Health Address [address] [place] [address] Care Team Providers Name Role Phone Pcp, Does Not Have A Primary Care Provider Encounter Details Date Type Department Care Team Description 01/01/2020 Orders Only [facility] Doctor Unassigned, No [address] [facility] Name [phone] [place] [address] Allergies No Known Allergiesdocumented as of this encounter (statuses as of 01/01/2020) Medications Medication Sig Dispensed Refills Start Date [...] as of this encounter (statuses as of 01/01/2020) Active Problems Problem Noted Date Left knee injury, initial encounter 02/02/2016 documented as of this encounter (statuses as of 01/01/2020) Social History Tobacco Use Types Packs/Day Years [...] Signs Not on filedocumented in this encounter Plan of Treatment Date Type Specialty Care Team Description 02/10/2020 Office Visit Orthopedic Surgery Jony Garrido MD [address] [phone] Health Maintenance Due Date Last Done Comments HEPATITIS C (HCV) SCREEN 1955 DTaP,Tdap,and Td Vaccines (1 - Tdap) 1964 COLONOSCOPY 12/18/2003 Zoster Recombinant Vaccine (SHINGRIX) (1 of 2) 12/18/2003 Medicare Wellness Visit 2018 PNEUMOCOCCAL VACCINES 65+ (1 of 2 - PCV13) 2018 INFLUENZA VACCINE (#1) 2019 documented as of this encounter Procedures Procedure Name Priority Date/Time Associated Diagnosis Comme nts EXTERNAL PROVIDER Routine 01/01/2020 12:01 AM CDT RECORDS documented in this encounter Results Not on filedocumented in this encounter Insurance Payer Benefit Plan / Subscriber ID Effective Dates Phone Addre ss Type Group MEDICARE MEDICARE PART xxxxxxxxxxx 2010-Erika [phone] [address] Medicare A & B nt 2 [id number] ASHWINI ZIMMERMAN [id number] documented as of this encounter
--- OUTSIDE RECORDS SUMMARY | 2020-03-02 17:24 | XMS REPORT | Continuity of Care Document ---
:1955 Author Organization [facility] t Address [address] [place] [address] Care Team Providers Name Role Phone Lorie Rice MD Primary Care Physician Hema AZEVEDO L Attending Clinician HEDY Attending Clinician Unavailable Lorie Rice MD Attending Clinician Saumya AZEVEDO, Ko. Attending Clinician Sharmila Damico CRNA Attending Clinician Saurabh Arriaga MD Attending Clinician Dwayne Attending Clinician Unavailable LORIE RICE Attending Clinician Unavailable Ogunlana, Ruddy Attending Clinician HEDY Admitting Clinician Unavailable Dwayne Admitting Clinician Unavailable DWAYNE, LORIE Admitting Clinician Unavailable Payers Payer Name Policy Policy Number Effective Expiration Source Type Date Date MEDICAREMEDICARE PART xxxxxxxxxxx 2010 Rajendra Connell AND 00:00:00 [employer]enominational Oleripfgqjic33/1/2010 [place] Condition Condition Condition Status Onset Resolution Last Treating Co mments Source Name Details Category Date Date Treatment Clinician Date Toxic Toxic Disease Active Romeo 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-02 Meth robert encephalop encephalop 00:00: st athy athy 00 N/A Diagnosis Active 2017-01-30 01-27 11:47:00 [place] N/A 00:00: st 00 Active 01/27/2017 [facility] WOUND Diagnosis Active 2017-02-03 MH CLOSURE 01-27 12:47:00 [place] LEFT MID WOUND 00:00: st FOOT CLOSURE 00 AMPUTATION LEFT MID FOOT AMPUTATION Active 01/27/2017 [facility] Pain in Pain in Problem [facility] left knee [facility] Closed Closed Problem Active [facility] nondisplac nondisplac Leela kes - ed ed Memoria fracture fracture l of left of left Outpati patella, patella, ent unspecifie unspecifie Cl inics d fracture d fracture morphology morphology , initial , initial encounter encounter Diabetes Problem Active 2017-02-02 mellitus 02:13:57 South e (disorder) Diabetes st mellitus (disorder) Active Problem 02/02/2017 [facility] Other Problem 2019-02-16 [facility] injury of 04:01:51 unspecifie Other d body injury of region, unspecifie initial d body encounter region, initial encounter 02/16/2019 [facility] OTH Diagnosis Active 2017-02-03 COMPLICATI 12:47:00 Sout hwe ONS OF OTH st PROCEDURES COMPLICATI , NEC, IN ONS OF PROCEDURES , NEC, IN Active [facility] Allergies, Adverse Reactions, Alerts This patient has no known allergies or adverse reactions. Social History Social Habit Start Date Stop Date Quantity Comments [facility] Std Drinks History [facility] Meth odist Alcohol Binge Sex Assigned At [facility] ethodist Alcohol intake 2019-05-07 2019-05-07 Thony Me thodist 00:00:00 00:00:00 History SDOH 2019-05-03 2019-05-03 1 Thony Meth odist Alcohol Frequency 00:00:00 00:00:00 Social History 2019-02-15 2019-02-15 [facility] ermann 04:59:59 04:59:59 [facility] Smoking Status Start Date Stop Date Source Former Smoker [facility] Never smoker Thony Methodfany t Social History 2017-01-27 22:27:45 [facility] Medications Ordered Filled Start Stop Current Ordering Indication Dosage Frequency Signature Comments Components Source Medication Medication Date Date Medication? Clinician (SIG) Name Name clonIDINE 2019- No .1mg Q7D Place 1 [place] (CATAPRES-T 05-20 patch (0.1 M ethodi TS) 0.1 00:00: 23:59 mg total) st mg/24 hr 00 :00 on the skin once a week. pantoprazol Yes 40mg QD Take 1 [place] e 05-15 tablet (40 Methodi (PROTONIX) 00:00: mg total) st 40 MG EC 00 by mouth tablet daily. levothyroxi 2018- No 100ug QD Take 1 [place] 05-15 tablet Methodi (SYNTHROID, 00:00: 23:59 (100 mcg s t LEVOXYL) 00 :00 total) by 100 mcg mouth tablet every morning for 30 days. aspirin 2018- No 81mg QD Take 1 Bhandari (ECOTRIN) 05-15 tablet (81 Met hodi 81 MG 00:00: 23:59 mg total) st enteric 00 :00 by mouth coated daily for tablet 30 days. L. 2018- No 2{capsu QD Take 2 Bhandari acidophilus 05-15 le} capsules Met danis ,casei,rham 00:00: 23:59 by mouth s t nosus (BIO 00 :00 daily for K PLUS) 50 30 days. billion cell capsule,del ayed release(DR/ EC) capsule SITagliptin 2018- No 25mg QD Take 1 [place] (JANUVIA) 05-15 tablet (25 Met hodi 25 MG 00:00: 23:59 mg total) st tablet 00 :00 by mouth daily with breakfast for 30 days. cefpodoxime 2018- No 200mg Q.[id number] Take 1 Bhandari (VANTIN) 05-15 [id number] tablet Me thodi 200 MG 00:00: 23:59 3W ([address] tablet 00 :00 total) by mouth 3 (three) times a week for 5 days. docusate 2018- No 100mg Take 100 [place] sodium 05-14- mg by Tete (COLACE) 14:18: 00:[address] 100 MG 10 :00 daily. capsule levothyroxi 2018- No 75ug QD Take 75 [place] 05-14- mcg by Tete (SYNTHROID, 14:18: 00:[address] LEVOXYL) 75 10 :00 every mcg tablet morning. acyclovir 2018- No 800mg [id number] Take 800 Bhandari (ZOVIRAX) 05-14 [id number] mg by Me thodi 800 MG 14:18: 00:[address] tablet 10 :00 (three) times a day. acetaminoph 2018- No 1{tbl} Q6H Take 1 [place] en-codeine 05-14 tablet by Met mos[place]o (TYLENOL 14:18: 00:[address] WITH 10 :00 every 6 CODEINE #3) (six) 300-30 mg hours as per tablet needed for moderate pain. loperamide 2018- No 2mg Take 2 mg H jaclyn (IMODIUM) 2 05-14 by mouth Met [place] mg capsule 14:18: 00:00 as needed s t 10 :00 for diarrhea. Prn q 6hrs for diarrhea enoxaparin 2018- No 30mg Inject 30 [place] (LOVENOX) 05-14- mg under Metho di 30 mg/0.3 14:18: 00:[address] mL syringe 10 :00 daily. Daily at 0900 collagenase 2019- No QD Apply [place] (SANTYL) 05-14 topically Metho di ointment 14:18: 00:[address] 10 :00 Apply to R Lateral lower leg chlorhexidi 2019- No Apply [place] ne 05-14 topically Methodi gluconate 2 14:18: 00:[address] % liquid 10 :00 Apply to R lateral lower leg wound.clen se with chlorhexid ine . senna 2018- Yes 2{tbl} QD Take 2 Bhandari (SENOKOT) 8-13 tablets by Meth robert 8.6 mg 14:18: mouth st tablet 06 nightly. multivitami 2019- Yes 1{tbl} Q.5D Take 1 [place] with 8-13 tablet by Methodi minerals 14:18: mouth 2 st tablet 06 (two) times a day. alum-mag 2018- Yes 20mL Q.25D Take 20 mL [place] hydroxide-s 8-13 by mouth 4 Me thodi imeth 14:18: (four) st (MAALOX 06 times a PLUS) day as 200-200-20 needed for mg/5 mL indigestio suspension n or heartburn. acyclovir 2019- No 200mg Q.5D Take 1 [place] (ZOVIRAX) 05-14 capsule Method i 200 MG 00:00: 23:59 ([address] capsule 00 :00 total) by mouth 2 (two) times a day for 30 days. acetaminoph 2019- No 650mg Q6H Take 2 [place] en 05-14 tablets Methodi (TYLENOL) 00:00: 23:59 ([address] 325 MG 00 :00 total) by tablet mouth every 6 (six) hours as needed for mild pain or fever for up to 30 days. atorvastati 2019- No 10mg QD Take 1 [place] n (LIPITOR) 05-14 tablet (10 M ethodi 10 MG 00:00: 23:59 mg total) st tablet 00 :00 by mouth nightly for 30 days. acetaminoph 2019- No 1{tbl} Q6H Take 1 [place] en-codeine 05-14 tablet by Met mos[place]o (TYLENOL 00:00: 23:[address] WITH 00 :00 every 6 CODEINE #3) (six) 300-30 mg hours as per tablet needed for moderate pain for up to 7 days. Acetaminoph No 15 ml, en 21.7 01-30 Route: PO, [facility] e MG/ML / 20:25: Drug Form: st Hydrocodone 00 SOLN, Bitartrate Dosing 0.5 MG/ML Weight Oral 66.364, Solution kg, ONCE, PRN Pain Score 4-6, Start date: 01/30/17 15:25:00 CDT Insulin, No Notes: Aspart, 01-30 Roll in [facility] Human 18:56: palms of st 00 hands gently; Do not shake vigorously . (Same as: NovoLOG) "single patient use only" WASTE: F/P - Black; E - Municipal Trash Bin Stable for 28 days at room temperatur e. Expires in days from ____Date Sodium No 1,000 mL, Chloride 01-30 Rate: 125 [place] 0.154 18:56: ml/hr, st MEQ/ML 00 Infuse Injectable over: 8 Solution hr, Route: IV, Dosing Weight 66.364 kg, Total Volume: 1,000, Start date: 01/30/17 13:56:00 CDT, Duration: 30 day, Stop date: 03/01/17 13:55:00 CDT Morphine No Notes: 01-30 (Same [facility] 18:56: as:MORPhin st 00 e Sulfate) Acetaminoph No Notes: Max en 01-30 acetaminop [facility] 18:56: hen 4000 st 00 mg/day (4 gm/day). (Same as: Tylenol Extra Strength) Fentanyl No Notes: 01-30 (Same as: [facility] 18:56: Sublimaze) st Preservat shima free. Ondansetron No Notes: 01-30 (Same as: [facility] 18:56: Zofran) st 00 MEDICATION WASTE Product Size: 4 mg Product Wasted: ___ mg Flumazenil No Notes: 01-30 (Same as: [facility] 18:56: Romazicon) st Naloxone No Notes: 01-30 Same as [facility] 18:56: Narcan st 00 ePHEDrine No Route: IV, (ANES) 01-30 Drug form: [facility] 18:41: INJ, ONCE, st Stop date: 01/30/17 13:41:00 CDT metoclopram No Route: IV, MH joss (ANES) 01-30 [facility], [facility], Stop date: 01/30/17 13:16:00 CDT ondansetron No Route: IV, MH (ANES) 01-30 Drug form: [facility] 18:16: INJ, ONCE, Stop date: 01/30/17 13:16:00 CDT propofol No Route: IV, (ANES) 01-30 Drug form: [facility] 18:11: INJ, ONCE, Stop date: 01/30/17 13:11:00 CDT lidocaine No Route: IV, (ANES) 01-30 Drug form: [facility] 18:06: INJ, ONCE, Stop date: 01/30/17 13:06:00 CDT phenylephri No Route: IV, ne (ANES) 01-30 Drug form: [facility] hwe 18:06: INJ, ONCE, Stop date: 01/30/17 13:06:00 CDT midazolam No Route: IV, (ANES) 01-30 Drug form: [facility] 18:06: SOLN, st ONCE, Stop date: 01/30/17 13:06:00 CDT Unknown Yes Refill(s) Home 01-30 0 [facility] Medication 17:34: st 00 Aspirin Yes 81 mg, PO, MH 01-30 0 [facility] 17:31: Refill(s) st metoprolol Yes 50 mg = 1 tartrate 50 01-30 tab, PO, Sout hwe mg oral 17:31: BID, 0 st Refill(s) meropenem Yes 500 mg, MH 500 mg 01-30 IV, Q12H [facility] intravenous 17:30: st injection 00 propofol No Route: IV, (ANES) 01-30 Drug form: [facility] (ANE) 17:29: INJ, Start st date: 01/30/17 12:29:00 CDT, Stop date: 01/30/17 13:29:00 CDT vancomycin Yes IV, Q48H, MH 750 mg 01-30 0 [facility] intravenous 17:29: Refill(s) s t injection 00 sodium No Route: IV, MH chloride 01-30 Total [facility] 0.9% 500 ml 17:20: Volume: st INJ (ANES) 00 500, Start date: 01/30/17 12:20:00 CDT, Stop date: 01/30/17 13:20:00 CDT acetaminoph acetaminoph No acetaminop [place] en 300 en 300 hen 300 da mg-codeine mg-codeine mg-codeine Medical 30 mg 30 mg 30 mg Group tablet tablet tablet calcium calcium No calcium [place] r acetate 667 acetate 667 acetate da mg capsule mg capsule 667 mg M edical capsule Group cephalexin cephalexin No cephalexin [place] 250 mg 250 mg 250 mg da capsule capsule capsule Medica l Group cilostazol cilostazol No cilostazol [place] 100 mg 100 mg 100 mg da tablet tablet tablet Medical Group clopidogrel clopidogrel No clopidogre [place] 75 mg 75 mg l 75 mg da tablet tablet tablet Medical Group Lomotil Lomotil Yes [facility] defined [facility] ent Clinics diphenoxyla diphenoxyla No diphenoxyl [place] te-atropine te-atropine ate-atropi da 2.5 2.5 ne 2.5 Medical mg-0.025 mg mg-0.025 mg mg-0.025 Group tablet tablet mg tablet clopidogrel clopidogrel Yes [facility] [place] defined [facility] ent Clinics Klor-Con Klor-Con No Klor-Con [place] M20 mEq M20 mEq M20 mEq da tablet,exte tablet,exte tablet,ext Medical nded nded ended Group release release release VitaMelts VitaMelts Yes [facility] Vitamin D Vitamin D [place] defined [facility] ent Clinics levothyroxi levothyroxi No levothyrox [place] ne 25 mcg ne 25 mcg ine 25 mcg da tablet tablet tablet Medical Group Pepcid Pepcid Yes [facility] [place] defined [facility] Outpat[facility] ent Clinics minocycline minocycline No minocyclin [place] 100 mg 100 mg e 100 mg da capsule capsule capsule Medica l Group Bactroban Bactroban Yes [facility] not [facility] defined [facility] Clinics rosuvastati rosuvastati No rosuvastat [place] n 10 mg n 10 mg in 10 mg da tablet tablet tablet Medical Group Pletal Pletal Yes [facility] not [facility] defined [facility] sulfamethox sulfamethox No sulfametho [place] azole 800 azole 800 xazole 800 da mg-trimetho mg-trimetho mg-trimeth Medical prim 160 mg prim 160 mg oprim 160 Group tablet tablet mg tablet Plavix Plavix Yes [facility] not [facility] defined [facility] tramadol 50 tramadol 50 No tramadol [place] mg tablet mg tablet 50 mg da tablet Medical Group Klor-Con Klor-Con Yes [facility] not [facility] S t M20 M20 [place] defined [facility] Clinics warfarin warfarin No warfarin [place] 2.5 mg 2.5 mg 2.5 mg da tablet tablet tablet Medical Group Crestor Crestor Yes [facility] not [facility] defined [facility] Vital Signs Vital Name Observation Time Observation Value Comments Source BP Diastolic 2019-02-21 00:00:00 62 mm[Hg] [facility] Height 2019-02-21 00:00:00 64 [facility]_i[facility] BMI (Body Mass 2019-02-21 00:00:00 31.1 kg/m2 [facility] Medical Index) Group BP Systolic 2019-02-21 00:00:00 110 mm[Hg] [facility] Body Weight 2019-02-21 00:00:00 181 [lb_av] [facility] Systolic blood 2019-05-14 11:47:15 144 mm[Hg] Jaxsonto n [employer]ond[employer]ominational pressure Diastolic blood 2019-05-14 11:47:15 67 mm[Hg] Estevan on Nondenominational pressure Heart rate 2019-05-14 11:47:15 80 /min Romeo [employer] Body temperature 2019-05-14 11:47:15 36.33 Pallavi [place] [employer] Respiratory rate 2019-05-14 11:47:15 17 /min Jaxson mena [employer]ominational Oxygen saturation in 2019-05-14 11:47:15 97 /min Bhandari [employer]ominational Arterial blood by Pulse oximetry Body weight 2019-05-14 04:10:32 72.712 kg Thony Grant Systolic (mm Hg) 2017-01-30 20:45:00 [facility] Diastolic (mm Hg) 2017-01-30 20:45:00 [facility] Systolic (mm Hg) 2017-01-30 20:30:00 MH S [facility]west Diastolic (mm Hg) 2017-01-30 20:30:00 [facility] Respitory Rate 2017-01-30 [facility]:30:[facility] Hg) 2017-01-30 19:30:00 S [place] Diastolic (mm Hg) 2017-01-30 19:30:00 [facility] Respitory Rate 2017-01-30 19:15:00 [facility] Resp[facility] Rate 2017-01-30 19:00:00 [facility] Heart Rate 2017-01-30 17:00:00 [facility] Temperature Oral (F) 2017-01-30 17:00:00 97.6 F [facility] BMI Calculated 2017-01-27 22:26:00 [facility] Height 2017-01-27 22:26:[address] [facility] Weight 2017-01-27 22:26:00 [facility] Procedures Procedure Date / Time Performing Clinician Source Performed BASIC METABOLIC PANEL 2019-05-14 05:30:00 Mando Suárez HC COMPLETE BLD COUNT 2019-05-14 05:30:00 Mando Suárez W/AUTO DIFF ESTIMATED GFR 2019-05-14 05:30:00 Mando Suárez Meth odist POC GLUCOSE 2019-05-13 12:35:00 Anthony Rice Pr thodist BASIC METABOLIC PANEL 2019-05-13 05:20:00 Mando Suárez HC COMPLETE BLD COUNT 2019-05-13 05:20:00 Mando Suárezist W/AUTO DIFF ESTIMATED GFR 2019-05-13 05:20:00 Mando Suárez Meth odist POC GLUCOSE 2019-05-12 20:56:00 Anthony Rice Me thodist POC GLUCOSE 2019-05-12 17:01:00 Anthony Rice Me thodist HEMODIALYSIS 2019-05-12 11:25:36 Betty Daley Pr thodist BASIC METABOLIC PANEL 2019-05-12 05:10:00 Mando Suárez Nondenominational HC COMPLETE BLD COUNT 2019-05-12 05:10:00 Mando Suárez Nondenominational W/AUTO DIFF ESTIMATED GFR 2019-05-12 05:10:00 Mando Suárez Bhandari Meth odist HC COMPLETE BLD COUNT 2019-05-11 04:40:00 Mando Suárez Nondenominational W/AUTO DIFF BASIC METABOLIC PANEL 2019-05-11 04:40:00 Mando Suárez ESTIMATED GFR 2019-05-11 04:40:00 Kamini Mando Bhandari Meth odist POC GLUCOSE 2019-05-10 18:16:00 Anthony Rice Pr thodist HEMODIALYSIS 2019-05-10 09:39:48 CeeArcadio lindo Meth odist POC GLUCOSE 2019-05-10 07:54:00 DwayneAnthony song Me thodist HC COMPLETE BLD COUNT 2019-05-10 04:40:00 Mando Suárez W/AUTO DIFF BASIC METABOLIC PANEL 2019-05-10 04:40:00 Mando Suárez ESTIMATED GFR 2019-05-10 04:40:00 Mando Suárez Meth odist POC GLUCOSE 2019-05-10 00:24:00 DwayneAnthony song Pr thodist POC GLUCOSE 2019-05-09 16:22:00 DwayneAnthony song Pr thodist AMMONIA LEVEL 2019-05-09 12:00:00 Kamini Mando Bhandari Meth odist POC GLUCOSE 2019-05-09 11:35:00 DwayneAnthony song Me thodist POC GLUCOSE 2019-05-09 06:48:00 DwayneAnthony song Me thodist HC COMPLETE BLD COUNT 2019-05-09 04:45:00 Mando Suárez W/AUTO DIFF BASIC METABOLIC PANEL 2019-05-09 04:45:00 Li, Gilmore [place] [employer]ational PROTHROMBIN TIME WITH INR 2019-05-09 04:45:00 Kadie Orozco Nondenominational ESTIMATED GFR 2019-05-09 04:45:00 Mando Suárez Meth odist POC GLUCOSE 2019-05-09 00:32:00 DwayneAnthony song Me thodist POC GLUCOSE 2019-05-08 18:14:00 DwayneAnthony song Me thodist POC GLUCOSE 2019-05-08 13:57:00 DwayneAnthony song Me thodist HC COMPLETE BLD COUNT 2019-05-08 08:28:00 Mando Suárez N[employer]enominational W/AUTO DIFF BASIC METABOLIC PANEL 2019-05-08 08:28:00 Mando Suárez PROTHROMBIN TIME WITH INR 2019-05-08 08:28:00 Mando Suárez N[employer]enominational ESTIMATED GFR 2019-05-08 08:28:00 Mando Suárez Meth odist POC GLUCOSE 2019-05-08 06:38:00 DwayneAnthony song Me thodist POC GLUCOSE 2019-05-08 06:37:00 DwayneAnthony song Me thodist POC GLUCOSE 2019-05-07 23:57:00 DwayneAnthony song Me thodist POC GLUCOSE 2019-05-07 16:28:00 DwayneAnthony song Me thodist EEG AWAKE/ASLEEP LESS THAN 2019-05-07 16:09:09 Mason Claire [employer]en[employer]ational 41 MIN POC GLUCOSE 2019-05-07 12:10:[address] Me thodist [address] HEAD WO CONTRAST 2019-05-07 11:12:15 Mando Suárez [employer]ational HEMODIALYSIS 2019-05-07 09:56:59 VelBetty crooks Bhandari Me thodist HC COMPLETE BLD COUNT 2019-05-07 05:00:00 Mando Suárez N[employer]en[employer]ational W/AUTO DIFF BASIC METABOLIC PANEL 2019-05-07 05:00:00 Mando Suárez N[employer]enominational ESTIMATED GFR 2019-05-07 05:00:00 Mando Suárez Meth odist POC GLUCOSE 2019-05-06 16:14:00 DwayneAnthony song Me thodist NC AN ELECTIVE 2019-05-06 15:22:42 Thalia Steele [employer]ational SUPRAGLOTTIC AIRWAY POC GLUCOSE 2019-05-06 14:56:00 DwayneAnthony song Pr thodist BASIC METABOLIC PANEL 2019-05-06 11:55:00 Rey Judd [employer]ational ESTIMATED GFR 2019-05-06 11:55:00 Rey Judd Me thodist ECG 12-LEAD 2019-05-06 11:51:20 Mando Suárez Meth odist BLOOD CULTURE, AEROBIC & 2019-05-06 08:19:00 [facility] ANAEROBIC HEMODIALYSIS 2019-05-06 06:47:17 Betty Daley Pr thodist BASIC METABOLIC PANEL 2019-05-06 04:50:00 Jessica Cosme on Nondenominational Marta HC COMPLETE BLD COUNT 2019-05-06 04:50:00 Jessica Cosme on Nondenominational W/AUTO DIFF Marta ESTIMATED GFR 2019-05-06 04:50:00 Anthony Rice Pr thodist POC GLUCOSE 2019-05-05 17:17:00 DwayneAnthony song Pr thodist POC GLUCOSE 2019-05-05 11:38:00 DwayneAnthony song Pr thodist POC GLUCOSE 2019-05-05 08:38:00 Anthony Rice Pr thodist POC GLUCOSE 2019-05-05 05:28:00 DwayneAnthony song Pr thodist BASIC METABOLIC PANEL 2019-05-05 05:20:00 Jessica Cosme on Nondenominational Marta HC COMPLETE BLD COUNT 2019-05-05 05:20:00 Jessica Cosme on Nondenominational W/AUTO DIFF Marta HEMOGLOBIN A1C 2019-05-05 05:20:00 Fidelcaprice Mara Thony N[employer]enominational ESTIMATED GFR 2019-05-05 05:20:00 Fidelcaprice Mara Bhandari [employer]ational POC GLUCOSE 2019-05-04 22:08:00 DwayneAnthony song Me thodist POC GLUCOSE 2019-05-04 17:06:00 Anthony Rice Me thodist POC GLUCOSE 2019-05-04 13:04:00 DwayneAnthony song Me thodist POC GLUCOSE 2019-05-04 09:32:00 DwayneAnthony song Me thodist EEG AWAKE/DROWSY LESS THAN 2019-05-04 09:12:17 Mason Claireist 41 MIN BASIC METABOLIC PANEL 2019-05-04 06:10:00 Jessica Cosme on Nondenominational Marta HC COMPLETE BLD COUNT 2019-05-04 06:10:00 Jessica Cosme on Nondenominational W/AUTO DIFF Marta ESTIMATED GFR 2019-05-04 06:10:00 DwayneAnthony song Me thodist POC GLUCOSE 2019-05-04 05:22:00 DwayneAnthony song Me thodist MRI BRAIN WO CONTRAST 2019-05-04 02:47:40 Mason Claire POC GLUCOSE 2019-05-04 02:04:00 DwayneAnthony song Me thodist POC GLUCOSE 2019-05-04 00:50:00 DwayneAnthony song Me thodist POC GLUCOSE 2019-05-03 21:54:00 DwayneAnthony song Pr thodist POC GLUCOSE 2019-05-03 17:00:00 Anthony Rice Pr thodist VITAMIN B12 LEVEL 2019-05-03 16:47:00 Mason Claire Pr thodist SYPHILIS TOTAL ANTIBODY 2019-05-03 16:47:[address] HEAD WO CONTRAST 2019-05-03 14:39:10 Tayla Cosmepatriceana Grant Marta POC GLUCOSE 2019-05-03 11:56:00 DwayneAnthony song Pr thodist AMMONIA LEVEL 2019-05-03 10:30:00 Betty Daley Pr thodist HEPATITIS B SURFACE AB, 2019-05-03 10:30:00 Betty Daley QUANTITATIVE HEPATITIS B SURFACE 2019-05-03 10:30:00 Betty Daley [employer] ANTIGEN CONSULT TO OSTOMY CARE 2019-05-03 08:48:52 Estevan Gee on N[employer]en[employer]ational NURSE [facility] HEMODIALYSIS 2019-05-03 07:48:24 Betty Daley Me thodist POC GLUCOSE 2019-05-03 07:33:00 Anthony Rice Me thodist LACTIC ACID LEVEL, SEPSIS 2019-05-03 06:00:00 Nnea Reyes - NOW AND REPEAT 2X EVERY 3 HOURS COMPREHENSIVE METABOLIC 2019-05-03 03:00:00 Nena Reyes PANEL HC COMPLETE BLD COUNT 2019-05-03 03:00:00 Nena Reyes W/AUTO DIFF PROTHROMBIN TIME WITH INR 2019-05-03 03:00:00 Nena Reyes LACTIC ACID LEVEL, SEPSIS 2019-05-03 03:00:00 Nena Reyes - NOW AND REPEAT 2X EVERY 3 HOURS ESTIMATED GFR 2019-05-03 03:00:00 Nena Reyes Me thodist THYROID STIMULATING 2019-05-03 03:00:00 Nena Reyes HORMONE T4, FREE 2019-05-03 03:00:00 Nena Reyes Me thodist POC GLUCOSE 2019-05-03 01:18:00 Anthony Rice Me thodist BLOOD CULTURE, AEROBIC & 2019-05-02 23:55:00 Nena Reyes ANAEROBIC ANAEROBIC CULTURE 2019-05-02 23:55:00 Nena Reyes AEROBIC CULTURE 2019-05-02 23:55:00 Nena Reyes Me thodist GRAM STAIN 2019-05-02 23:55:00 Nena Reyes Me thodist BLOOD CULTURE, AEROBIC & 2019-05-02 23:45:00 Nena Reyes ANAEROBIC LACTIC ACID LEVEL, SEPSIS 2019-05-02 23:45:00 Nena Reyes - NOW AND REPEAT 2X EVERY 3 HOURS BASIC METABOLIC PANEL 2019-05-02 23:45:00 Nena Reyes ESTIMATED GFR 2019-05-02 23:45:00 Nena Reyes Me thodist Cholecystectomy [facility] Plan of Care Planned Activity Planned Date Details Comments Source Future Scheduled 2020-05-02 INFLUENZA VACCINE [place] [facility] Test 00:00:00 [code = INFLUENZA VACCINE] Future Scheduled 2018 65+ PNEUMOCOCCAL Bhandari [facility] Test 00:00:00 VACCINE (1 of 2 - PCV13) [code = 65+ PNEUMOCOCCAL VACCINE (1 of 2 - PCV13)] Future Scheduled 2003-12-18 COLONOSCOPY SCREENING [place] [facility] Test 00:00:00 [code = COLONOSCOPY SCREENING] Future Scheduled 2003-12-18 SHINGLES VACCINES (#1) [place] [facility] Test 00:00:00 [code = SHINGLES VACCINES (#1)] Future Scheduled 1963-12-18 DIABETIC FOOT EXAM [place] [facility] Test 00:00:00 [code = DIABETIC FOOT EXAM] Future Scheduled 1963-12-18 URINE MICROALBUMIN [place] [facility] Test 00:00:00 [code = URINE MICROALBUMIN] Future Scheduled 1955 DIABETIC RETINAL EYE [place] stoallison [employer] Test 00:00:00 EXAM [code = DIABETIC RETINAL EYE EXAM] Encounters Start End Encounter Admission Attending Care Care Encounter Source Date/Time Date/Time Type Type Clinicians Facility Department ID 2020-02-12 2020-02-12 [facility] [id number] 14:42:00 23:59:00 Encounter Elvis Farnsworth [facility] [id number] Surgical [id number] Specialti [id number] es [address] 2020-02-12 2020-02-12 [facility] [id number] 14:41:07 14:59:15 Visit [facility] [id number] Surgical [id number] Specialti [id number] es [address] 2019-10-11 2019-10-11 Outpatient Winifred KNOTT [facility] [place] [place] [id number] [address] 10:42:00 23:59:00 BRENDAN [facility] 2019-02-21 2019-02-21 Rolan BARR [place] - [id number] M eran 00:00:00 00:00:00 Clyde Darby MD: Medical [facility] [address], General [address], [place] [address] , Ph. [phone] 2019-02-14 2019-02-15 Outpatient [facility] [id number] USPI 16:31:47 04:59:59 [facility] 2019-02-14 2019-02-14 Outpatient [facility] [id number] Surgica 11:31:47 23:59:59 l [facility] 2019-02-14 2019-02-14 Outpatient Dwayne, [id number] 11:31:47 23:59:59 Fabrice 8 2019-01-10 2019-01-10 [facility] [id number] 13:03:00 13:03:00 [facility] 2019-01-09 2019-01-09 [facility] [id number] 15:00:00 15:00:00 [facility] 2018 2018 Outpatient [facility] [id number] 10:09:00 10:09:00 [facility] - [facility] Medical [facility] 2018 2018 [facility] [id number] 10:00:00 10:00:00 [facility] 2018-12-11 2018-12-11 [facility] [id number] 14:30:00 14:30:00 [facility] 2017-01-30 2017-01-30 Day ERICA Bethea [id number] 16:35:00 21:25:[address] 2017-01-30 2017-01-30 Outpatient Garrett [facility] [id number] 11:35:00 16:25:00 Babajide 00 Ruddy Results Test Description Test Time Test Comments Results Result Sourc e Comments MRI LOW EXT 2019-10-02 Exam MRI of the right ankle JOINT W/O 0 without contrastLocation: CONTRAST*WW* 12:32:32 U4Rhmmlpn: Ulceration of the heel with pain for [...] the proximal medial band of the plantarfascia. Basic metabolic panel 2019-05-14 06:45:27 Test Item Value Reference Range Interpretation Comme nts Sodium (test code = 2951-2) 136 135- 148 mEq/L Potassium (test code = 2823-3) 4.0 3.5- 5.0 mEq/L Chloride (test code = 2075-0) 98 98- 112 mEq/L CO2 (test code = 2027-9) 25 24- 31 mEq/L Anion gap (test code = 08383-7) 13@ANIO 7- 15 mEq/L BUN (test code = 3094-0) 26 mg/dL 8-23 H Creatinine (test code = 2160-0) 3.55 mg/dL 0.7-1.2 H Glucose (test code = 2345-7) 83 mg/dL 65-99 Calcium (test code = 04066-1) 8.6 mg/dL 8.8-10.2 L Lab Interpretation (test code = 28872-9) Abnormal Bhandari MethodistEstimated [id number] 06:39:43 Test Item Value Reference Range Interpretation Comments Estimated GFR (test 17 mL/min/1.73 m2 A Caterg delano Units code = 5488) InterpretationG 1 >=90 Kaleigh l or highG2 60-89 Mildly decrease dG3a 45-59 Mil dly to moderately decr camdkS3w 30-44 Moderately to s everely decreasedG4 15-29 Severe ly decreasedG5 <15 Kidney augustina lureThe eGFR was calcul ated using the Chron ic Kidney Disease Epidemiology Collaboration ( CKD-EPI) equation. Interpretation is based on recommendati ons of the National Ki dney Foundation-Kidn ey Disease Outcome s Quality Initiat shima (NKF-KDOQI) pub lished in 2013. Lab Interpretation Abnormal (test code = 30705-3) Bhandari MethodistCBC with platelet and [id number] 05:49:39 Test Item Value Reference Range Interpretation Comments WBC (test code = 36032-0) 7.5 4.5- 11.0 k/uL RBC (test code = 88533-9) 3.27 m/uL 4.4-6 L HGB (test code = 718-7) 9.4 g/dL 14-18 L HCT (test code = 4544-3) 30.4 % 41-51 L MCV (test code = 787-2) 93.0 fL 82-100 MCH (test code = 785-6) 28.7 pg 27-34 MCHC (test code = 786-4) 30.9 g/dL 31-37 L RDW - SD (test code = 14193-3) 52.5 fL 37-55 MPV (test code = 84226-3) 9.2 fL 6.9-11 Platelet count (test code = 184 K/uL 150-400 43040-3) Nucleated RBC (test code = 98540-7) 0.00 /100 WBC Neutrophils (test code = 33334-9) 62.2 % 39-69 Lymphocytes (test code = 62872-9) 16.9 % 25-45 L Monocytes (test code = 76470-1) 13.3 % 0-10 H Eosinophils (test code = 91143-5) 6.3 % 0-5 H Basophils (test code = 01152-0) 0.8 % 0-1 Immature granulocytes (test code = 0.5 % 0-1 09507-0) Lab Interpretation (test code = Abnormal 10418-5) Thony RiojasistPOC [id number] 12:56:15 Test Item Value Reference Range Interpretation Comments POC glucose (test 69 mg/dL 65-99 RN Notifie dMeter ID: code = 79924-8) [id number] erator: Michelle Helen Thony MethodistBlood culture, aerobic & [id number] 12:33:05 Test Item Value Reference Range Interpretation Comments Blood culture No growth Specimen isolate (test after 5 days InformationSpe cimen code = 600-7) of Source: BloodS pecimen incubation. Site: Dialysis catheter Romeo MethodistAmmonia [id number] 12:41:20 Test Item Value Reference Range Interpretation Comments Ammonia (test code = 1841-6) 14 umol/L 16-60 L Lab Interpretation (test code = Abnormal 20548-3) Bhandari ShineistProthrombin time with [id number] 06:04:33 Test Item Value Reference Range Interpretation Comments Prothrombin time (test 21.0 11.5- 14.5 sec H code = 5902-2) INR (test code = 1.9 The Interna tional 56219-0) Normalized Rati o (INR) is a therapeuti c monitoring tool for patients who ar e stable on oral anticoagulant t herapy. An INR of 2.0-3 .0 is suggested for d eep vein thrombosis/pulm onary embolism. Lab Interpretation Abnormal (test code = 24144-0) Thony MethodistEEG (routine)2019-05-07 16:15:34Date of Study Completion: May 07, 2019Date of Interpretation: May 07, 2019Ordering Provider: Dr.Larry Claire Inpatient Electroencephalogram Report History: 63 year old man being treated for persistent encephalopathy. Please evaluate the underlying cerebral activity and rule out interictal epileptiform discharges. Technical Description: The recording was started at 15:36 and ended at 15:58 on 05/07/2019. It was a digitally recorded multi-montage EEG with 21 electrodes placed according to the International 10/20 system. An EKG strip was recorded continuously. True eye leads were not employed. Truetemporal leads were not employed. EEG Description:Cerebral activity consisted of continuous delta and theta frequency discharges with superimposed triphasic activity seen over the bifrontal garrison. Overall adequate symmetry was maintained. No definitive interictal epileptiform discharges or electrographic seizures were appreciated. Sleep Recording:Stage II sleep was not recorded. Activation Procedures:Neither hyperventilation nor photic stimulation were attempted. EEG Interpretation: This was an abnormal awake and drowsy EEG.1. Triphasic discharges. 2. Continuous background slowing. 3. No paroxysmal discharges were observed. Clinical Correlation:1. There was evidence of a moderate encephalopathy, part of which is metabolic in etiology. Clinical correlation is recommended. 2. There was no definitive evidence of interictal epileptiform discharges, electrographic seizures, or status epilepticus seen over the course of this tracing.Romeo MethodistCT Head Wo [id number] 11:20:00Hm Interface, Radiology Results 05/07/2019 11:23 AM CDTEXAMINATION: CT HEAD WO CONTRASTCLINICAL HISTORY: AMS confusionCOMPARISON: CT brain from May. MRI brain from May 04, 2019TECHNIQUE: Noncontrast enhanced images of the brain were obtained from the skull base to the vertex. Both soft tissue and bone reconstruction algorithms were performed. CT scans are performed usingradiation dose reduction techniques. Technical factors are evaluated and adjusted to ensure appropriate moderation of exposure. Automated dose management technology is applied to adjust radiation exposure while achieving a diagnostic quality image.FINDINGS:Artifacts obscure some details.There is no definite evidence of acute intracranial hemorrhage or mass, hydrocephalus or midline shift, stroke or thrombus. There is nonspecific enlargement of the ventricles and extra-axial space greater in the anterior region. There are nonspecific white matter changes. There is calcination of duarte of some of thearteries.There is pseudophakia.There is nonspecific increased bone density. The orbits, sinuses and mastoid air cells do not show significant acute abnormality. There is a small amount of fluid in the inferior right mastoid air cells which is relatively stable.IMPRESSION:No acute findings in the brainor extra axial region.[id number] MethodistHepatitis B surface Ab, quantitative 2019-05-07 10:09:21 Test Item Value Reference Range Interpretation Comments Hepatitis B surface Ab 86.38 IU/L The a nti-HBs is greater (test code = 5193-8) than or equal to 10 IU/L. This patient de leon s either had an antibody response to HBV vaccinat ion, received a claire sfusion, or has recovere d from HBV infection. This patient should be consi dered immune to hepat itis B.An anti-HBs result greater than or equal t o 10 IU/L implies immunit y. For post-vaccinatio n antibody testing guideli jose for the general pub lic refer to MMWR Decembe r 2004/Vol. 54(No . 16);10-24, and f or healthcare work ers refer to MMWR Decembe r 2012/Vol. 62(No . 10);-19.Refere nce Interval: anti- HBs 9.99 IU/L or less .. ..... Odhlnarl03.00 I U/L or greater .... PositiveResults greater than 1,000.00 I U/L are reported as gre ater than 1,000.00 IU/L. This assay should not be u sed for blood donor scr eening, associated re-e ntry protocols, or f or screening Human Cell, Tissues and Pallavi lular and Tissue-Based Pr oducts (HCT/P).Perform ed by [employer], [address] [place] [id number] [email or web address], Elie Dick MD - Lab. Director Romeo MethodistAnaerobic [id number] 07:27:23 Test Item Value Reference Range Interpretation Comments Anaerobic No anaerobic Specimen culture isolate organisms InformationS pecimen (test code = isolated. Source: WoundSp ecimen 552) Site: Right Leg Romeo MethodistECG 12 [id number] 17:18:53 Test Item Value Reference Range Interpretation Comments Ventricular rate (test 95 code = 253) Atrial rate (test code 95 = 255) NC interval (test code 168 = 266) QRSD interval (test 80 code = 260) QT interval (test code 344 = 264) QTC interval (test code 432 = 265) P axis 1 (test code = 42 267) QRS axis 1 (test code = -9 268) T wave axis (test code 31 = 270) EKG impression (test Normal sinus code = 273) rhythm-Normal ECG-In automated comparison with ECG of 24-JUN-2010 11:35,-No significant change was found- Romeo MethodistAerobic [id number] 10:09:47Aerobic culture isolateMixed edwige- more than 3 organisms isolated.Consider resubmitting specimen if clinically indicated. Comment: Specimen InformationSpecimen Source: WoundSpecimen Site: Right Leg [facility] Nondenominational Hemoglobin [id number] 07:45:50 Test Item Value Reference Range Interpretation Comments Hemoglobin A1C (test 4.7 % 4-5.6 HbA1c c utoffs for code = 22264-6) diagnosing d iabetes:4.0% - 5.6% = normal 5.7% - 6.4% = increase d risk for diabetes (prediabetes) >=6.5% = diabetes Goals for glycemic contro l (ADA 2016)< 7.0% Ta rget for non geraldine lts with diabetes. More or less stringent targe ts may be appropriate for individual nara ents. <7.5% Target for Children and ad olescents with type 1 alissa betes. Romeo MethodistEEG (routine)2019-05-04 09:42:18Date of Study Completion: May 04, 2019Date of Interpretation: May 04, 2019Ordering Provider: Dr.Larry Claire Inpatient Electroencephalogram Report History: 63 year old man being treated for persistent encephalopathy. Please evaluate the underlying cerebral activity and rule out interictal epileptiform discharges. Technical Description: The recording was started at 9:06 AM and ended at 9:27 AM on 05/04/2019. It was a digitally recorded multi-montage EEG with 21 electrodes placed according to the International 10/20 system. An EKG strip was recorded continuously. True eye leads were not employed. True temporal leads were not employed. EEG Description:Cerebral activity consisted of continuous polymorphic delta and theta frequency discharges. Superimposed on this background were triphasic discharges seen over the bifrontal garrison. No definitive interictal epileptiform discharges or electrographicseizures were appreciated. Sleep Recording:Stage II sleep was not recorded. Activation Procedures:Hyperventilation was not attempted. Photic stimulation utilizing flash frequencies ranging from 5 to 30Hz did not elicit a driving response. EEG Interpretation: This was an abnormal awake and drowsy EEG.1. Triphasic discharges. 2. Continuous background slowing. 3. No paroxysmal discharges were observed. Clinical Correlation:1. There was evidence of a moderate encephalopathy, part of which is metabolicin etiology. Clinical correlation is recommended. 2. There was no definitive evidence of interictal epileptiform discharges, electrographic seizures, or status epilepticus seen over the course of this tracing.Romeo ShineistSyphilis total [id number] 04:16:54 Test Item Value Reference Range Interpretation Comments Syphilis total Non-reactive Non-reactive No serologica l antibody (test code evidence of syphilis = 6194) infection. [facility] Brain Wo [id number] 03:01:16 Interface, Radiology Results Incoming - 05/04/2019 3:04 AM CDTEXAMINATION: MRI BRAIN WO CONTRASTC LINICAL HISTORY: acute confusionCOMPARISON: 05/03/[address]TECHNIQUE: Multiplanar and multisequence MRI imaging of the brain was obtained without contrast.FINDINGS:No diffusion restriction to suggestacute ischemia. No abnormal susceptibility to suggest intracranial hemorrhage.There is generalized brain parenchymal volume loss. Patchy T2/FLAIR hyperintense foci within the subcortical and periventricular white matter, likely chronic microangiopathic changes.No acute hydrocephalus or extra-axial fluid collection identified. No intracranial mass effect. Midline structures are maintained. The major flow voids in the skull base are identified. Visualized paranasal sinuses and mastoid air cells are clear. Orbits are unremarkable. Visualized soft tissue shows no gross abnormalities. IMPRESSION:No acute intracranial abnormality.[facility]-[id number] MethodistVitamin B12 [id number] 21:03:26 Test Item Value Reference Range Interpretation Comments Vitamin B12 (test code 1098 pg/mL 211-946 H Signi ficant overlap = 2132-9) exists between normal and deficiency states.However, most patients with deficiencies wi ll have Serum B12 <200 pg/mL. Lab Interpretation Abnormal (test code = 88275-0) Bhandari MethodistGram [id number] 16:20:46 Test Item Value Reference Range Interpretation Comments Gram stain No WBC's or Specimen isolate (test organisms seen. Information Specimen code = 1469) Source: WoundSp ecimen Site: Right Leg Bhandari MethodistHepatitis B surface [id number] 12:06:03 Test Item Value Reference Range Interpretation Comments Hepatitis B surface Ag (test Non-reactive Non-reactive code = 5195-3) Bhandari NondenominationalLactic acid level, SEPSIS - Now and repeat 2x every 3 hours 2019-05-03 07:09:04 Test Item Value Reference Range Interpretation Comments Lactic acid (test code = 43002-8) 0.7 mmol/L 0.5-2.2 Romeo NondenominationalThyroid stimulating [id number] 04:23:41 Test Item Value Reference Range Interpretation Comments TSH (test code = 3016-3) 95.40 0.27- 4.20 uIU/mL H Lab Interpretation (test code = Abnormal 00972-9) Thony RiojasistT4, [id number] 04:03:41 Test Item Value Reference Range Interpretation Comments T4, free (test code = 3024-7) 0.7 ng/dL 0.9-1.7 L Lab Interpretation (test code = Abnormal 82813-0) Bhandari NondenominationalComprehensive metabolic [id number] 03:52:18 Test Item Value Reference Range Interpretation Comments Sodium (test code = 2951-2) 128 135- 148 mEq/L L Potassium (test code = 2823-3) 5.9 3.5- 5.0 mEq/L H Chloride (test code = 2075-0) 90 98- 112 mEq/L L CO2 (test code = 8-9) 20 24- 31 mEq/L L Anion gap (test code = 91914-2) 18@ANIO 7- 15 mEq/L H BUN (test code = 3094-0) 70 mg/dL 8-23 H Creatinine (test code = 2160-0) 8.44 mg/dL 0.7-1.2 H Glucose (test code = 2345-7) 92 mg/dL 65-99 Calcium (test code = 88909-9) 9.5 mg/dL 8.8-10.2 Protein (test code = 2885-2) 6.2 g/dL 6.3-8.3 L Albumin (test code = 1751-7) 3.3 g/dL 3.5-5 L A/G ratio (test code = 1759-0) 1.1 0.7-3.8 Alkaline phosphatase (test code = 145 U/L 40-129 H 6768-6) AST (test code = 1920-8) 22 U/L 10-50 ALT (test code = 1742-6) 14 U/L 5-50 Total bilirubin (test code = 0.3 mg/dL 0.2-1.2 1974-11) Lab Interpretation (test code = Abnormal 39754-0) Tohny GrantBacteria identified in Wound by [id number] 07:57:00 ResultsMata81st Medical GroupRAD, CHEST, 1 VIEW, NON [id number] 07:44:00 Reason for exam:->pneumoniaShould this be performed at the bedside?->Yes FINAL REPORT CHEST AP PORTABLE Comparison exam: 07/13/2018 History provided: Pneumonia Heart size normal. Chronically elevated right hemidiaphragm with minimal scarring or atelectatic change at the right base. Lungs otherwise clear and vascularity normal. Signed: Tk Butler MDR eport Verified Date/Time: 08/15/2018 07:44:34 Reading Location: [facility] Radiology Reading Room REHENSIVE METABOLIC [id number] 06:02:00 Test Item Value Reference Range Interpretation Comments TOTAL PROTEIN 4.7 gm/dL 6.0-8.5 L (BEAKER) (test code = 770) ALBUMIN (BEAKER) 2.7 g/dL 3.5-5.0 L (test code = 1145) ALKALINE PHOSPHATASE 82 U/L 30-115 (BEAKER) (test code = 346) BILIRUBIN TOTAL 0.4 mg/dL 0.1-1.2 (BEAKER) (test code = 377) SODIUM (BEAKER) (test 131 meq/L 135-148 L code = 381) POTASSIUM (BEAKER) 2.8 meq/L 3.6-5.5 L (test code = 379) CHLORIDE (BEAKER) 96 meq/L 98-106 L (test code = 382) CO2 (BEAKER) (test 20 meq/L 20-29 code = 355) BLOOD UREA NITROGEN 44 mg/dL 10-26 H (BEAKER) (test code = 354) CREATININE (BEAKER) 9.67 mg/dL 0.50-1.20 H (test code = 358) GLUCOSE RANDOM 157 mg/dL 70-110 H (BEAKER) (test code = 652) CALCIUM (BEAKER) 7.5 mg/dL 8.5-10.5 L (test code = 697) AST (SGOT) (BEAKER) 20 U/L 5-40 (test code = 353) ALT (SGPT) (BEAKER) 28 U/L 5-50 (test code = 347) EGFR (BEAKER) (test 5 mL/min/1.73 ESTIMAT ED GFR IS code = 1092) sq m NOT ACCURATE CREATININE CLEARANCE IN PREDICTING GLOMERULAR FILTRATION RATE . ESTIMATED GFR I S NOT APPLICABLE FOR DIALYSIS PATIEN TS. [id number] 05:52:00 Test Item Value Reference Range Interpretation Comments MAGNESIUM (BEAKER) (test code = 1.5 mg/dL 1.5-3.0 627) CBC W/PLT COUNT & AUTO [id number] 05:24:00 Test Item Value Reference Range Interpretation Comments WHITE BLOOD CELL COUNT (BEAKER) 5.8 K/ L 4.0-10.0 (test code = 775) RED BLOOD CELL COUNT (BEAKER) 2.63 M/ L 4.20-5.80 L (test code = 761) HEMOGLOBIN (BEAKER) (test code = 8.4 GM/DL 13.0-16.8 L 410) HEMATOCRIT (BEAKER) (test code = 25.0 % 36.0-50.0 L 411) MEAN CORPUSCULAR VOLUME (BEAKER) 95.1 fL 82.0-99.0 (test code = 753) MEAN CORPUSCULAR HEMOGLOBIN 31.9 pg 27.0-33.0 (BEAKER) (test code = 751) MEAN CORPUSCULAR HEMOGLOBIN CONC 33.6 GM/DL 32.0-36.0 (BEAKER) (test code = 752) RED CELL DISTRIBUTION WIDTH 13.0 % 12.0-15.0 (BEAKER) (test code = 412) PLATELET COUNT (BEAKER) (test 167 K/CU MM 150-430 code = 756) MEAN PLATELET VOLUME (BEAKER) 9.5 fL 6.0-11.5 (test code = 754) NUCLEATED RED BLOOD CELLS 0 /100 WBC 0-0 (BEAKER) (test code = 413) NEUTROPHILS RELATIVE PERCENT 62 % (BEAKER) (test code = 429) LYMPHOCYTES RELATIVE PERCENT 18 % (BEAKER) (test code = 430) MONOCYTES RELATIVE PERCENT 15 % (BEAKER) (test code = 431) EOSINOPHILS RELATIVE PERCENT 4 % (BEAKER) (test code = 432) BASOPHILS RELATIVE PERCENT 1 % (BEAKER) (test code = 437) NEUTROPHILS ABSOLUTE COUNT 3.58 K/ L 1.80-8.00 (BEAKER) (test code = 670) LYMPHOCYTES ABSOLUTE COUNT 1.06 K/ L 1.48-4.50 L (BEAKER) (test code = 414) MONOCYTES ABSOLUTE COUNT (BEAKER) 0.88 K/ L 0.00-1.30 (test code = 415) EOSINOPHILS ABSOLUTE COUNT 0.21 K/ L 0.00-0.50 (BEAKER) (test code = 416) BASOPHILS ABSOLUTE COUNT (BEAKER) 0.03 K/ L 0.00-0.20 (test code = 417) IMMATURE GRANULOCYTES-RELATIVE 0 % 0-0 PERCENT (BEAKER) (test code = 2801) HEPATITIS B SURFACE [id number] 11:48:00 Test Item Value Reference Range Interpretation Comments HEPATITIS B SURFACE ANTIBODY 501.0 mIU/mL <8.0 H (BEAKER) (test code = 647) BASIC METABOLIC [id number] 09:47:00 Test Item Value Reference Range Interpretation Comments SODIUM (BEAKER) 133 meq/L 135-148 L (test code = 381) POTASSIUM (BEAKER) 3.4 meq/L 3.6-5.5 L (test code = 379) CHLORIDE (BEAKER) 96 meq/L 98-106 L (test code = 382) CO2 (BEAKER) (test 21 meq/L 20-29 code = 355) BLOOD UREA NITROGEN 47 mg/dL 10-26 H (BEAKER) (test code = 354) CREATININE (BEAKER) 9.87 mg/dL 0.50-1.20 H (test code = 358) GLUCOSE RANDOM 97 mg/dL 70-110 (BEAKER) (test code = 652) CALCIUM (BEAKER) 7.9 mg/dL 8.5-10.5 L (test code = 697) EGFR (BEAKER) (test 5 mL/min/1.73 ESTIMAT ED GFR IS code = 1092) sq m NOT ACCURATE CREATININE CLEARANCE IN PREDICTING GLOMERULAR FILTRATION RATE . ESTIMATED GFR I S NOT APPLICABLE FOR DIALYSIS PATIEN TS. CBC W/PLT COUNT & AUTO [id number] 09:25:00 Test Item Value Reference Range Interpretation Comments WHITE BLOOD CELL COUNT (BEAKER) 6.2 K/ L 4.0-10.0 (test code = 775) RED BLOOD CELL COUNT (BEAKER) 2.94 M/ L 4.20-5.80 L (test code = 761) HEMOGLOBIN (BEAKER) (test code = 9.7 GM/DL 13.0-16.8 L 410) HEMATOCRIT (BEAKER) (test code = 27.7 % 36.0-50.0 L 411) MEAN CORPUSCULAR VOLUME (BEAKER) 94.2 fL 82.0-99.0 (test code = 753) MEAN CORPUSCULAR HEMOGLOBIN 33.0 pg 27.0-33.0 (BEAKER) (test code = 751) MEAN CORPUSCULAR HEMOGLOBIN CONC 35.0 GM/DL 32.0-36.0 (BEAKER) (test code = 752) RED CELL DISTRIBUTION WIDTH 12.9 % 12.0-15.0 (BEAKER) (test code = 412) PLATELET COUNT (BEAKER) (test 173 K/CU MM 150-430 code = 756) MEAN PLATELET VOLUME (BEAKER) 9.1 fL 6.0-11.5 (test code = 754) NUCLEATED RED BLOOD CELLS 0 /100 WBC 0-0 (BEAKER) (test code = 413) NEUTROPHILS RELATIVE PERCENT 64 % (BEAKER) (test code = 429) LYMPHOCYTES RELATIVE PERCENT 17 % (BEAKER) (test code = 430) MONOCYTES RELATIVE PERCENT 15 % (BEAKER) (test code = 431) EOSINOPHILS RELATIVE PERCENT 3 % (BEAKER) (test code = 432) BASOPHILS RELATIVE PERCENT 1 % (BEAKER) (test code = 437) NEUTROPHILS ABSOLUTE COUNT 3.94 K/ L 1.80-8.00 (BEAKER) (test code = 670) LYMPHOCYTES ABSOLUTE COUNT 1.02 K/ L 1.48-4.50 L (BEAKER) (test code = 414) MONOCYTES ABSOLUTE COUNT (BEAKER) 0.91 K/ L 0.00-1.30 (test code = 415) EOSINOPHILS ABSOLUTE COUNT 0.21 K/ L 0.00-0.50 (BEAKER) (test code = 416) BASOPHILS ABSOLUTE COUNT (BEAKER) 0.05 K/ L 0.00-0.20 (test code = 417) IMMATURE GRANULOCYTES-RELATIVE 1 % 0-0 H PERCENT (BEAKER) (test code = 2801) HEPATITIS B SURFACE [id number] 06:36:00 Test Item Value Reference Range Interpretation Comments HEPATITIS B SURFACE ANTIGEN (2) Nonreactive Nonreactive (BEAKER) (test code = 2585) RAD, CHEST, 1 VIEW, NON [id number] 08:35:00Reason for exam:- >pneumoniaShould this be performed at the bedside?->YesFINAL REPORT RAD, CHEST, 1 VIEW, NON DEPT INDICATION: pneumonia COMPARISON: None FINDINGS: Portable frontal view of the chest. IMPRESSION: Support Lines: None Lungs and pleura: Clear lungs. No effusion. Eventration noted in the right hemidiaphragm. No pneumothorax.Heart and mediastinum: Unremarkable contours.Additional findings: None. Signed: JR Morales Robert MDReport Verified Date/Time: 08/13/2018 08:35:27 Reading Location: [facility] C013V Neuro Reading Room [id number] 06:45:00 Test Item Value Reference Range Interpretation Comments PHOSPHORUS (BEAKER) (test code = 5.1 mg/dL 2.5-4.5 H 604) COMPREHENSIVE METABOLIC [id number] 06:13:00 Test Item Value Reference Range Interpretation Comments TOTAL PROTEIN 5.1 gm/dL 6.0-8.5 L (BEAKER) (test code = 770) ALBUMIN (BEAKER) 3.0 g/dL 3.5-5.0 L (test code = 1145) ALKALINE PHOSPHATASE 67 U/L 30-115 (BEAKER) (test code = 346) BILIRUBIN TOTAL 0.6 mg/dL 0.1-1.2 (BEAKER) (test code = 377) SODIUM (BEAKER) (test 132 meq/L 135-148 L code = 381) POTASSIUM (BEAKER) 3.7 meq/L 3.6-5.5 (test code = 379) CHLORIDE (BEAKER) 100 meq/L 98-106 (test code = 382) CO2 (BEAKER) (test 19 meq/L 20-29 L code = 355) BLOOD UREA NITROGEN 43 mg/dL 10-26 H (BEAKER) (test code = 354) CREATININE (BEAKER) 10.23 mg/dL 0.50-1.20 H (test code = 358) GLUCOSE RANDOM 72 mg/dL 70-110 (BEAKER) (test code = 652) CALCIUM (BEAKER) 7.8 mg/dL 8.5-10.5 L (test code = 697) AST (SGOT) (BEAKER) 26 U/L 5-40 (test code = 353) ALT (SGPT) (BEAKER) 37 U/L 5-50 (test code = 347) EGFR (BEAKER) (test 5 mL/min/1.73 ESTIMAT ED GFR IS code = 1092) sq m NOT ACCURATE CREATININE CLEARANCE IN PREDICTING GLOMERULAR FILTRATION RATE . ESTIMATED GFR I S NOT APPLICABLE FOR DIALYSIS PATIEN TS. [id number] 05:58:00 Test Item Value Reference Range Interpretation Comments MAGNESIUM (BEAKER) (test code = 1.5 mg/dL 1.5-3.0 627) CBC W/PLT COUNT & AUTO [id number] 05:33:00 Test Item Value Reference Range Interpretation Comments WHITE BLOOD CELL COUNT (BEAKER) 7.8 K/ L 4.0-10.0 (test code = 775) RED BLOOD CELL COUNT (BEAKER) 3.24 M/ L 4.20-5.80 L (test code = 761) HEMOGLOBIN (BEAKER) (test code = 10.3 GM/DL 13.0-16.8 L 410) HEMATOCRIT (BEAKER) (test code = 31.2 % 36.0-50.0 L 411) MEAN CORPUSCULAR VOLUME (BEAKER) 96.3 fL 82.0-99.0 (test code = 753) MEAN CORPUSCULAR HEMOGLOBIN 31.8 pg 27.0-33.0 (BEAKER) (test code = 751) MEAN CORPUSCULAR HEMOGLOBIN CONC 33.0 GM/DL 32.0-36.0 (BEAKER) (test code = 752) RED CELL DISTRIBUTION WIDTH 13.1 % 12.0-15.0 (BEAKER) (test code = 412) PLATELET COUNT (BEAKER) (test 168 K/CU MM 150-430 code = 756) MEAN PLATELET VOLUME (BEAKER) 9.3 fL 6.0-11.5 (test code = 754) NUCLEATED RED BLOOD CELLS 0 /100 WBC 0-0 (BEAKER) (test code = 413) NEUTROPHILS RELATIVE PERCENT 75 % (BEAKER) (test code = 429) LYMPHOCYTES RELATIVE PERCENT 13 % (BEAKER) (test code = 430) MONOCYTES RELATIVE PERCENT 9 % (BEAKER) (test code = 431) EOSINOPHILS RELATIVE PERCENT 2 % (BEAKER) (test code = 432) BASOPHILS RELATIVE PERCENT 1 % (BEAKER) (test code = 437) NEUTROPHILS ABSOLUTE COUNT 5.82 K/ L 1.80-8.00 (BEAKER) (test code = 670) LYMPHOCYTES ABSOLUTE COUNT 1.01 K/ L 1.48-4.50 L (BEAKER) (test code = 414) MONOCYTES ABSOLUTE COUNT (BEAKER) 0.70 K/ L 0.00-1.30 (test code = 415) EOSINOPHILS ABSOLUTE COUNT 0.16 K/ L 0.00-0.50 (BEAKER) (test code = 416) BASOPHILS ABSOLUTE COUNT (BEAKER) 0.05 K/ L 0.00-0.20 (test code = 417) IMMATURE GRANULOCYTES-RELATIVE 0 % 0-0 PERCENT (BEAKER) (test code = 2801) [id number] 17:05:41577ZC [id number] 17:05:004.7 [id number] 17:05:0091[id number] 17:05:0061[facility] Hospi[id number] 17:05:56224[facility]FA[facility] HospitalLY[facility] 2017-01-30 17:05:009.9[facility] HospitalAbgfdpytxZGQLPDYRGHGZ8531-01-18 17:05:0029.0[facility]
--- OUTSIDE RECORDS SUMMARY | 2020-03-02 17:24 | XMS REPORT | Summary of Care ---
:1955 Author Organization [facility] Address [address] [place] [id number] Care Team Providers Name Role Phone Pcp, Does Not Have A Primary Care Provider Reason for Referral Radiology Services (Routine) Status Reason Specialty Diagnoses / Referred By Referred To Procedures Contact Contact New Request Diagnostic Diagnoses Closed fracture of right wrist, initial encounter Elvis Garrido Radiology Procedures XR WRIST <3 VW RIGHT Javad MD [address] [facility] [place] [address] Reason for Visit Reason Comments Follow-up Wrist Pain right wrist fx DOI 12/20/19 Encounter Details Date Type Department Care Team Description 02/12/2020 Office Visit [facility] Orthopaedic Elvis Garrido losed fracture of Surgery- Anahy Farnsworth MD right wrist, initial [address] encounter (Primary Dx) [address] [place] [address] [place], [place] [phone] Allergies No Known Allergiesdocumented as of [...] file Gets together: Not on file Attends voodoo service: Not on file Active member of [...] Type Group MEDICARE MEDICARE PART xxxxxxxxxxx 2010-Prese [phone] Medicare A & B nt 2 [id number] ASHWINI ZIMMERMAN [id number] (Home) JAY GARCIA [phone] (Work) documented as of this encounter
--- OUTSIDE RECORDS SUMMARY | 2020-03-02 17:24 | XMS REPORT | Summary of Care ---
:1955 Author Organization [facility] Address [address] [place] [address] Care Team Providers Name Role Phone Pcp, Does Not Have A Primary Care Provider Encounter Details Date Type Department Care Team Description 02/12/2020 [facility] - MD Radiology [address] [place] [address] [place] [address] [address] [place], [place] [phone] Allergies No Known Allergiesdocumented as of this encounter (statuses as of 02/13/2020) Medications Medication Sig Dispensed Refills Start Date [...] as of this encounter (statuses as of 02/13/2020) Active Problems Problem Noted Date Left knee injury, initial encounter 02/02/2016 documented as of this encounter (statuses as of 02/13/2020) Social History Tobacco Use Types Packs/Day Years [...] filedocumented in this encounter Plan of Treatment Health Maintenance Due Date Last Done Comments HEPATITIS C (HCV) SCREEN 1955 DTaP,Tdap,and Td Vaccines (1 - Tdap) 1964 COLONOSCOPY 12/18/2003 Zoster Recombinant Vaccine (SHINGRIX) (1 of 2) 12/18/2003 Medicare Wellness Visit 2018 PNEUMOCOCCAL VACCINES 65+ (1 of 2 - PCV13) 2018 INFLUENZA VACCINE (Season Ended) 2020 documented as of this encounter Procedures Procedure Name Priority Date/Time Associated Diagnosis Comme nts XR WRIST <3 VW Routine 02/12/2020 2:42 PM Closed fracture of Results for this RIGHT CDT right wrist, initial procedu re are in encounter the results section. documented in this encounter Results XR WRIST <3 VW RIGHT (02/12/2020 2:42 PM CDT) Specimen Narrative Performed At This result has an attachment that is no t available. Arrived with films. None taken in office. PACS Performing Organization Address City/State/[facility] Phone Number PACS documented in this encounter Visit Diagnoses Diagnosis Closed fracture of right wrist, initial encounter documented in this encounter Insurance Payer Benefit Plan / Subscriber ID Effective Dates Phone Addre ss Type Group MEDICARE MEDICARE PART xxxxxxxxxxx 2010-Erika [phone] Medicare A & B nt 2 [id number] ASHWINI ZIMMERMAN [id number] (Home) JAY GARCIA [phone] (Work) documented as of this encounter
[2020-03-02] MEDS ORDERED: DIPHENHYDRAMINE 50 MG/ML VIAL ONE (17:47)
[2020-03-02] MEDS ORDERED: PIPER/TAZO/NS 3.375gm 3.375 GM/100 ML BAG ONE (17:47)
[2020-03-02] MEDS ORDERED: ACETAMINOPHEN 325 MG TABLET ONE (17:47)
[2020-03-02] MEDS ORDERED: NA CHLORIDE 0.9% 250 ML ONE (17:47)
[2020-03-02 19:23] VITALS: TEMP 97.7; O2SAT 99
[2020-03-02 19:24] VITALS: BP 137/77
--- NOTE | 2020-03-02 20:19 | ER ---
Nurse's Notes [facility] Name: Amauri Boateng Age: 64 yrs Sex: Male : 1955 Arrival Date: 03/02/2020 Time: 14:03 Bed 2 Private MD: Diagnosis: Other peripheral vascular diseases-ischemic right foot, toes with necrosis;Anemia, unspecified;End stage renal disease Presentation: 03/02 14:05 Chief complaint: EMS states: was called out to dialysis for hypotension, on scene em 74/40, was given mannitol 12.5 gm x 3 and 600 mL NS prior to starting dialysis,dialysis was never started, on arrival pt told EMS that testicles were hurting, EMS noticed swelling and bruising to left groin and testicles, dialysis staff told EMS that he had an angiogram on Monday to evaluate his right foot, right foot 1st and 3rd toe are black, R foot is red and swollen, no palpable pulse on right foot, left foot amputated, EMS VSS, 130/80. Coronavirus screen: Proceed with normal triage. Patient denies a cough. Patient denies shortness of breath or difficulty breathing. Patient denies measured and/or subjective temperature greater than 100.4F prior to today's visit. Patient denies travel on a cruise ship or to a country the [facility] currently lists as an affected area. Patient denies contact with known and/or suspected case of COVID-19. Ebola Screen: Patient negative for fever greater than or equal to 101.5 degrees Fahrenheit, and additional compatible Ebola Virus Disease symptoms Patient denies exposure to infectious person. Patient denies travel to an Ebola-affected area in the 21 days before illness onset. No symptoms or risks identified at this time. Initial Sepsis Screen: Does the patient meet any 2 criteria? No. Patient's initial sepsis screen is negative. Does the patient have a suspected source of infection? Yes: Skin breakdown/wound. Risk Assessment: Do you want to hurt yourself or someone else? Patient reports no desire to harm self or others. Onset of symptoms was March 02, 2020. 14:05 Method Of Arrival: EMS: [facility] em 14:05 Acuity: KRISTIN 3 em Historical: - Allergies: 14:15 tramadol; sv - Home Meds: 14:15 duloxetine 30 mg oral cpDR 1 cap once daily [Active]; Nifedipine ER Oral 30 mg nightly sv [Active]; clonidine 0.1 mg/24 hr transdermal ptwk 1 patch once wkly [Active]; atorvastatin 10 mg Oral tab 1 tab nightly [Active]; multivitamin with minerals Oral tab [Active]; acetaminophen-codeine 300-30 mg Oral tab 1 tab every 4 hours [Active]; sitagliptin 25mg Oral 1 tab once daily [Active]; aspirin 81 mg Oral chew 1 tab once daily [Active]; Lactobacillus rhamnosus GG Oral twice a day [Active]; levothyroxine 100 mcg tab 1 tab once daily [Active]; clopidogrel 75 mg Oral tab 1 tab once daily [Active]; hydralazine 25 mg oral tab three times a day [Active]; mirtazapine 7.5 mg Oral tab nightly [Active]; ramipril 10 mg Oral cap 1 cap nightly [Active]; Zofran (as hydrochloride) 4 mg Oral tab 1 tabs every 8 hours [Active]; Santyl 250 unit/gram Topical oint once daily [Active]; loperamide 2 mg Oral cap 1 caps as needed [Active]; ascorbic acid (vitamin C) 500 mg tab [Active]; - PMHx: 14:15 Anemia; ATHEROSCLEROSIS; cardiac murmur; chronic diarrhea; chronic kidney disease; sv constipation; Diabetes - NIDDM; Dialysis; ESRD; GERD; Hyperlipidemia; Hypothyroidism; Hypertension; PVD; High Cholesterol; Secondary Hyperparathyroidism; Iron deficiency; Erectil dysfunction; - PSHx: 14:15 left toes amputation; sv - Immunization history:: Adult Immunizations up to date. - Social history:: Smoking status: Patient denies any tobacco usage or history of. Screenin:17 Abuse screen: Denies threats or abuse. Nutritional screening: No deficits noted. em Tuberculosis screening: No symptoms or risk factors identified. Fall Risk Secondary diagnosis (15 points) impaired mobility, Ambulatory Aid- None/Bed Rest/Nurse Assist (0 pts). Gait- Weak (10 pts.). Assessment: 14:05 General: Appears in no apparent distress. comfortable, Behavior is calm, cooperative, em appropriate for age, Denies fever. Pain: Complains of pain in pelvis Pain currently is 10 out of 10 on a pain scale. Pain began 1 day ago. Neuro: Level of Consciousness is awake, alert, obeys commands, Oriented to person, place, time, situation, Appropriate for age. Cardiovascular: Capillary refill < 3 seconds Patient's skin is warm and dry. Pulses are absent in right dorsalis pedis artery. Respiratory: Airway is patent Respiratory effort is even, unlabored, Respiratory pattern is regular, symmetrical. GI: Abdomen is flat, Patient currently denies nausea, vomiting. : Swelling noted on scrotum Reports pain scrotum. Derm: Skin is intact, is fragile, Skin is pink, warm \\T\\ dry. Wound noted heel of right foot right foot is red and swollen, toes are black and but have feeling. 14:51 Reassessment: Patient appears in no apparent distress at this time. Patient and/or em family updated on plan of care and expected duration. Pain level reassessed. Patient is alert, oriented x 3, equal unlabored respirations, skin warm/dry/pink. 15:00 Reassessment: Patient appears in no apparent distress at this time. Patient and/or em family updated on plan of care and expected duration. Pain level reassessed. Patient is alert, oriented x 3, equal unlabored respirations, skin warm/dry/pink. 16:11 Reassessment: Dr. Hallman and general surgeon at bedside. em 16:23 Reassessment: Patient appears in no apparent distress at this time. Patient and/or em family updated on plan of care and expected duration. Pain level reassessed. Patient is alert, oriented x 3, equal unlabored respirations, skin warm/dry/pink. rates pain 8/10 Patient states feeling better. 17:31 Reassessment: Patient appears in no apparent distress at this time. pt signed consent em form, pt informed he well be receiving PRBC's. 18:00 Reassessment: initiated blood transfusion, double checked PRBC's with SHANTI Ram, em instructed pt press call parr if anything feels "weird," SOB, or having chest pain. 18:37 Reassessment: report given to SHANTI Kaufman at [facility], pending EMS em transportation. 19:09 Reassessment: Patient appears in no apparent distress at this time. Patient and/or em family updated on plan of care and expected duration. Pain level reassessed. Patient is alert, oriented x 3, equal unlabored respirations, skin warm/dry/pink. report given [facility]. Vital Signs: 14:05 BP 115 / 69; Pulse 88; Resp 18; Temp 97.7; Pulse Ox 99% on R/A; Weight 51.71 kg; Height em 5 ft. 4 in. (162.56 cm); Pain 10/10; 14:30 BP 119 / 70; Pulse 85; Resp 18; Pulse Ox 99% on R/A; em 15:45 BP 123 / 60; Pulse 88; Resp 16; Pulse Ox 99% on R/A; em 16:24 BP 137 / 77; Pulse 86; Resp 18; Pulse Ox 99% on R/A; Pain 8/10; em 17:30 BP 130 / 55; Pulse 87; Resp 16; Pulse Ox 99% on R/A; em 17:55 em 14:05 Body Mass Index 19.57 (51.71 kg, 162.56 cm) em 17:55 please see trasfusion sheet for VS em ED Course: 14:03 Patient arrived in ED. em 14:07 Arm band placed on. sv 14:07 Patient has correct armband on for positive identification. Bed in low position. Call sv light in reach. Side rails up X2. Pulse ox on. NIBP on. 14:16 Triage completed. em 14:17 Vinicius Bailey, RN is Primary Nurse. em 14:19 Kasandra Otero FNP-C is PHCP. snw 14:19 Tim Guzman MD is Attending Physician. snw 14:40 Initial lab(s) drawn, by va, sent to lab. Inserted saline lock: 20 gauge in left dh3 forearm, using aseptic technique. Blood collected. 14:40 First set of blood cultures drawn by va. dh3 14:44 Second set of blood cultures drawn by va. dh3 15:23 XRAY Chest (1 view) In Process Unspecified. EDMS 15:25 T\\T\\S collected, blood band applied to patient. dh3 15:29 US Lower Extremity Arterial Bilateral In Process Unspecified. EDMS 15:29 US Scrotum Testicles In Process Unspecified. EDMS 15:40 Wound care: wrapped wound to right heal with Kerlix. dh3 17:50 Inserted saline lock: 20 gauge in right forearm, using aseptic technique. em 19:12 No provider procedures requiring assistance completed. Patient transferred, IV remains em in place. Administered Medications: 14:49 Not Given (Physician Discretion): Zofran (Ondansetron) 4 mg IVP once; over 2 minutes ss 14:51 Drug: fentaNYL (PF) 50 mcg Route: IVP; Site: left wrist; ss 15:30 Follow up: Response: No adverse reaction; Pain is decreased em 17:50 Drug: Tylenol 650 mg Route: PO; em 18:30 Follow up: Response: No adverse reaction em 17:50 Drug: Benadryl 12.5 mg Route: IVP; Site: right forearm; em 18:30 Follow up: Response: No adverse reaction em 17:55 Drug: Zosyn 3.375 grams Route: IVPB; Infused Over: 60 mins; Site: left forearm; em 19:03 Follow up: IV Status: Completed infusion; IV Intake: 100ml em Intake: 19:03 IV: 100ml; Total: 100ml. em Outcome: 17:25 ER care complete, transfer ordered by MD. horne 19:12 Transferred by ground EMS to [facility], Transfer form completed. X-rays sent em w/ patient. 19:12 Condition: good 19:12 Instructed on the need for admit, Demonstrated understanding of instructions. 19:14 Patient left the ED. em Signatures: Dispatcher [employer] Stacie Baca RN RN sv Anderson, Corey, MD MD cha Therrien, Shelly, SUPERVISOR PIPE FINISHING-C SUPERVISOR PIPE FINISHING-Csnw Vinicius Bailey RN RN Ellen Smith RN RN Evelin Kaba [facility] Corrections: (The following items were deleted from the chart) 19:12 19:12 Patient admitted, IV remains in place. em em
--- NOTE | 2020-03-02 20:20 | EDPHYS ---
Physician Documentation [facility] Name: Amauri Boateng Age: 64 yrs Sex: Male : 1955 Arrival Date: 03/02/2020 Time: 14:03 Bed 2 Private MD: ED Physician Tim Guzman HPI: 03/02 15:45 This 64 yrs old Male presents to ER via EMS with complaints of hypotension, snw scrotal swelling. 15:45 Onset: The symptoms/episode began/occurred acutely. Associated signs and symptoms: snw Pertinent positives: left testicular pain, scrotal edema, finished all but 45 minutes of dialysis. It is unknown whether or not the patient has had similar symptoms in the past. The patient has been recently seen by a physician: with similar presenting complaints, attempted revascularization of right lower ext through left groin. Historical: - Allergies: 14:15 tramadol; sv - Home Meds: 14:15 duloxetine 30 mg oral cpDR 1 cap once daily [Active]; Nifedipine ER Oral 30 mg nightly sv [Active]; clonidine 0.1 mg/24 hr transdermal ptwk 1 patch once wkly [Active]; atorvastatin 10 mg Oral tab 1 tab nightly [Active]; multivitamin with minerals Oral tab [Active]; acetaminophen-codeine 300-30 mg Oral tab 1 tab every 4 hours [Active]; sitagliptin 25mg Oral 1 tab once daily [Active]; aspirin 81 mg Oral chew 1 tab once daily [Active]; Lactobacillus rhamnosus GG Oral twice a day [Active]; levothyroxine 100 mcg tab 1 tab once daily [Active]; clopidogrel 75 mg Oral tab 1 tab once daily [Active]; hydralazine 25 mg oral tab three times a day [Active]; mirtazapine 7.5 mg Oral tab nightly [Active]; ramipril 10 mg Oral cap 1 cap nightly [Active]; Zofran (as hydrochloride) 4 mg Oral tab 1 tabs every 8 hours [Active]; Santyl 250 unit/gram Topical oint once daily [Active]; loperamide 2 mg Oral cap 1 caps as needed [Active]; ascorbic acid (vitamin C) 500 mg tab [Active]; - PMHx: 14:15 Anemia; ATHEROSCLEROSIS; cardiac murmur; chronic diarrhea; chronic kidney disease; sv constipation; Diabetes - NIDDM; Dialysis; ESRD; GERD; Hyperlipidemia; Hypothyroidism; Hypertension; PVD; High Cholesterol; Secondary Hyperparathyroidism; Iron deficiency; Erectil dysfunction; - PSHx: 14:15 left toes amputation; sv - Immunization history:: Adult Immunizations up to date. - Social history:: Smoking status: Patient denies any tobacco usage or history of. ROS: 15:45 Constitutional: Negative for fever, chills, and weight loss, Eyes: Negative for injury, snw pain, redness, and discharge, ENT: Negative for injury, pain, and discharge, Neck: Negative for injury, pain, and swelling, Cardiovascular: Negative for chest pain, palpitations, and edema, Respiratory: Negative for shortness of breath, cough, wheezing, and pleuritic chest pain, Abdomen/GI: Negative for abdominal pain, nausea, vomiting, diarrhea, and constipation, Back: Negative for injury and pain, MS/Extremity: Negative for injury and deformity, Skin: Negative for injury, rash, and discoloration, Neuro: Negative for headache, weakness, numbness, tingling, and seizure, Psych: Negative for depression, anxiety, suicide ideation, homicidal ideation, and hallucinations. 15:45 : Positive for testicular pain scrotal edema. Exam: 14:56 Constitutional: This is a well developed, well nourished patient who is awake, alert, snw and in no acute distress. Head/Face: Normocephalic, atraumatic. Eyes: Pupils equal round and reactive to light, extra-ocular motions intact. Lids and lashes normal. Conjunctiva and sclera are non-icteric and not injected. Cornea within normal limits. Periorbital areas with no swelling, redness, or edema. ENT: Nares patent. No nasal discharge, no septal abnormalities noted. Tympanic membranes are normal and external auditory canals are clear. Oropharynx with no redness, swelling, or masses, exudates, or evidence of obstruction, uvula midline. Mucous membranes moist. Neck: Trachea midline, no thyromegaly or masses palpated, and no cervical lymphadenopathy. Supple, full range of motion without nuchal rigidity, or vertebral point tenderness. No Meningismus. Chest/axilla: Normal chest wall appearance and motion. Nontender with no deformity. No lesions are appreciated. 14:56 Respiratory: Lungs have equal breath sounds bilaterally, clear to auscultation and percussion. No rales, rhonchi or wheezes noted. No increased work of breathing, no retractions or nasal flaring. Abdomen/GI: Soft, non-tender, with normal bowel sounds. No distension or tympany. No guarding or rebound. No evidence of tenderness throughout. Back: No spinal tenderness. No costovertebral tenderness. Full range of motion. Male : Normal genitalia with bruised and significantly edematous scrotum bilaterally, tenderness to left testicle 14:56 Cardiovascular: Rate: normal, Rhythm: regular, Pulses: pulse deficits are appreciated, not palpable, right lower ext, Heart sounds: murmur, systolic, grade 4 over 6, heard in the aortic area, heard in the mitral area, right foot erythematous, three lateral toes blackened, cool, heel with exudative discharge at central heel, dried blood discharge at lateral heel. 14:56 ECG was reviewed by the Attending Physician. Vital Signs: 14:05 BP 115 / 69; Pulse 88; Resp 18; Temp 97.7; Pulse Ox 99% on R/A; Weight 51.71 kg; Height em 5 ft. 4 in. (162.56 cm); Pain 10/10; 14:30 BP 119 / 70; Pulse 85; Resp 18; Pulse Ox 99% on R/A; em 15:45 BP 123 / 60; Pulse 88; Resp 16; Pulse Ox 99% on R/A; em 16:24 BP 137 / 77; Pulse 86; Resp 18; Pulse Ox 99% on R/A; Pain 8/10; em 17:30 BP 130 / 55; Pulse 87; Resp 16; Pulse Ox 99% on R/A; em 17:55 em 14:05 Body Mass Index 19.57 (51.71 kg, 162.56 cm) em 17:55 please see trasfusion sheet for VS em MDM: 14:20 Patient medically screened. ozzie 16:33 Data reviewed: vital signs, nurses notes, lab test result(s), EKG, radiologic studies. snw Data interpreted: Pulse oximetry: on room air is 99 %. Interpretation: normal. Counseling: I had a detailed discussion with the patient and/or guardian regarding: the historical points, exam findings, and any diagnostic results supporting the discharge/admit diagnosis, the presence of at least one elevated blood pressure reading (>120/80) during this emergency department visit, lab results, radiology results, the need to transfer to another facility, for higher level of care, [facility] does not immediately have the required specialist. Response to treatment: There is no appreciated change of the patient's symptoms at this time. Transition of care: After a detail discussion of the patient's case, care is transferred to Tim Guzman MD. ED course: hemodynamically stable, anemic, scrotal hematoma, right lower ext with biphasic flow to bar captain, monophasic lower.. 16:38 Physician consultation: Michele Hallman DO was called at 15:38, was contacted at 15:50, snw regarding admission, after a discussion of the case, a recommendation for transfer for higher level of care is made, to vascular surgery. 16:40 ED course: Pt had revascularization procedure Sat in [place] by Dr. Mclaughlin. Dr. arlet Lilly is closer in [facility]. Suggest transfer to Dr. Levin at [place]. Care of pt to Cathy Guzman MD,. 17:19 ED course: co of scrotal pain,left groin hematoma, from procedure on Monday,nirp ozzie group. pt is co pain to right foot and toes, also significant left groin and scrotal swelling and pain. 17:38 Differential diagnosis: nonspecific abdominal pain, SCROTAL HEMATOMA, GROIN HEMATOMA, ozzie ISCHEMIA RIGHT FOOT, NECROTIC TOES. ED course: DR MCKENZIE AT [place] HAPP[facility] TO ACCEPT THE TRANSFER. 19:11 Test interpretation: by ED physician or midlevel provider: ECG, plain radiologic ozzie studies. Medication response: Zofran markedly relieved the patient's nausea. ED course: pt going to [facility], vascular team, pt aware and stable at this time. 03/02 14:21 Order name: Basic Metabolic Panel; Complete Time: 15:37 snw 03/02 14:21 Order name: CBC with Diff snw 03/02 14:21 Order name: LFT's; Complete Time: 15:37 snw 03/02 14:21 Order name: Magnesium; Complete Time: 15:37 snw 03/02 14:21 Order name: NT PRO-BNP; Complete Time: 15:37 snw 03/02 14:21 Order name: PT-INR; Complete Time: 15:14 snw 03/02 14:21 Order name: Troponin (emerg Dept Use Only); Complete Time: 15:37 snw 03/02 14:21 Order name: Blood Culture Adult (2) w 03/02 15:09 Order name: Bb Add On w 03/02 15:10 Order name: PRBC [facility] 03/02 15:19 Order name: CBC Smear Scan [facility] 03/02 15:25 Order name: ABO/RH typing EDNY 03/02 15:25 Order name: Antibody Screen [facility] 03/02 16:16 Order name: Bb Add On bd 03/02 14:21 Order name: XRAY Chest (1 view) [facility] 03/02 14:21 Order name: EKG; Complete Time: 14:23 w 03/02 14:21 Order name: Cardiac monitoring; Complete Time: 14:35 w 03/02 14:21 Order name: EKG - Nurse/Tech; Complete Time: 14:53 w 03/02 14:21 Order name: IV Saline Lock; Complete Time: 14:53 w 03/02 14:21 Order name: Labs collected and sent; Complete Time: 14:35 w 03/02 14:21 Order name: O2 Per Protocol; Complete Time: 14:35 snw 03/02 14:21 Order name: O2 Sat Monitoring; Complete Time: 14:35 w 03/02 14:21 Order name: US Lower Extremity Arterial Bilateral [facility] 03/02 14:21 Order name: US Scrotum Testicles [facility] 03/02 17:18 Order name: Transfuse; Complete Time: 18:23 ozzie EC:56 Rate is 86 beats/min. Rhythm is regular. QRS [place] is Normal. [place] interval is normal. QRS snw interval is normal. QT interval is prolonged. Clinical impression: NSR w/ Non-specific ST/T Changes. Administered Medications: 14:49 Not Given (Physician Discretion): Zofran (Ondansetron) 4 mg IVP once; over 2 minutes ss 14:51 Drug: fentaNYL (PF) 50 mcg Route: IVP; Site: left wrist; ss 15:30 Follow up: Response: No adverse reaction; Pain is decreased em 17:50 Drug: Tylenol 650 mg Route: PO; em 18:30 Follow up: Response: No adverse reaction em 17:50 Drug: Benadryl 12.5 mg Route: IVP; Site: right forearm; em 18:30 Follow up: Response: No adverse reaction em 17:55 Drug: Zosyn 3.375 grams Route: IVPB; Infused Over: 60 mins; Site: left forearm; em 19:03 Follow up: IV Status: Completed infusion; IV Intake: 100ml em Disposition: 03/02/20 17:25 Transfer ordered to [facility]. Diagnosis are Other peripheral vascular diseases - ischemic right foot, toes with necrosis, Anemia, unspecified, End stage renal disease. - Reason for transfer: Higher level of care. - Accepting physician is to vascular [facility]. - Condition is Fair. - Problem is new. - Symptoms have improved. Signatures: Dispatcher [employer] Stacie Baca, RN RN Tim Yu MD MD cha Therrien, Shelly, PERIANESTHESIA MANAGER-C PERIANESTHESIA MANAGER-Csnw Vinicius Bailey RN RN Ellen Smith RN RN ss Corrections: (The following items were deleted from the chart) 15:47 14:56 Cardiovascular: Rate: normal, Rhythm: regular, Pulses: pulse deficits are snw appreciated, not palpable, right lower ext, right foot erythematous, three lateral toes blackened, cool, heel with exudative discharge at central heel, dried blood discharge at lateral heel, snw 19:14 17:25 03/02/2020 17:25 Transfer ordered to [facility]. Diagnosis is Other em peripheral vascular diseases - ischemic right foot, toes with necrosis; Anemia, unspecified; End stage renal disease. Reason for transfer: Higher level of care. Accepting physician is to [facility]. Condition is Fair. Problem is new. Symptoms have improved. ozzie
[2020-03-02 20:33] LABS: Anisocytosis 1+; Blood Morphology Comment NOTED (NOT SEEN); Platelet Estimate ADEQ; Urine White Blood Cell Casts OK
--- NOTE | 2020-03-03 19:29 | EKG ---
Test Date: 2020-03-02 Test Time: 14:46:07 Renewable Energy Engineer: JUDIT MEASUREMENT RESULTS: Intervals: Rate: 86 MO: 162 QRSD: 82 QT: 390 QTc: 466 Erin: P: 76 MO: 162 QRS: 55 T: 76 INTERPRETIVE STATEMENTS: Normal sinus rhythm Prolonged QT Abnormal ECG Compared to ECG 08/12/2018 10:47:16 T-wave abnormality no longer present Electronically Signed On 03-03-20 19:24:25 CDT by Kip Alcaraz
== END 2020-03-02 19:14 | disposition short-term general hospital (02) ==
LOC: ER 14:02
DX: I73.89 Other specified peripheral vascular diseases (principal); D64.9 Anemia, unspecified; E11.22 Type 2 diabetes mellitus with diabetic chronic kidney disease; I12.0 Hypertensive chronic kidney disease with stage 5 chronic kidney disease or end stage renal disease; N18.6 End stage renal disease; E03.9 Hypothyroidism, unspecified; Z79.82 Long term (current) use of aspirin; Z88.5 Allergy status to narcotic agent; Z99.2 Dependence on renal dialysis
CPT/HCPCS: 93005; 87040 ×2; 85025; 80048; 36415; 86900; 83735; 86850; 85610; 86901; 80076; 84484; 83880; 71045; 93925; 76870; 99285; J1200; J3010; J2543; P9016; J7030; 36430

== ENCOUNTER 2020-03-24 10:16 | Emergency (ER) | payer OTHER ==
--- NOTE | 2020-03-24 10:49 | EDPHYS ---
Physician Documentation [facility] Name: Amauri Boateng Age: 64 yrs Sex: Male : 1955 Arrival Date: 03/24/2020 Time: 10:18 Bed 7 Private MD: ED Physician Kings Batres HPI: 03/24 10:35 This 64 yrs old Male presents to ER via EMS with complaints of High Blood kb Pressure. 10:35 The patient has elevated blood pressure and discovered this Transfer EMS. Onset: The kb symptoms/episode began/occurred today. Associated signs and symptoms: The patient has no apparent associated signs or symptoms, Pertinent negatives: chest pain, dizziness, dyspnea, headache, lightheadedness, nausea, visual changes, vomiting, weakness. Severity of symptoms: At its worst the blood pressure was 190 mm Hg, in the emergency department the blood pressure is improved, 153 mm Hg. The patient has experienced similar episodes in the past. The patient has not recently seen a physician. Pt reports he feels great and doesn't know why they made him come to the ER. States he was being transferred to [facility] for his normal dialysis and the EMT told the nurse that his blood pressure was 190/90. The nurse told him she was not going to accept him with that BP and he needed to be brought to the ER. Pt states he has no symptoms, he normally has dialysis es, and Sat. Last dialysis was completed on Monday. . Historical: - Allergies: 10:27 tramadol; jl7 - Home Meds: 10:27 acetaminophen-codeine 300-30 mg Oral tab 1 tab every 4 hours [Active]; ascorbic acid jl7 (vitamin C) 500 mg tab [Active]; aspirin 81 mg Oral chew 1 tab once daily [Active]; atorvastatin 10 mg Oral tab 1 tab nightly [Active]; clonidine 0.1 mg/24 hr transdermal ptwk 1 patch once wkly [Active]; clopidogrel 75 mg Oral tab 1 tab once daily [Active]; duloxetine 30 mg Oral cpDR 1 cap once daily [Active]; Eliquis Oral [Active]; hydralazine 25 mg Oral tab three times a day [Active]; Lactobacillus rhamnosus GG Oral twice a day [Active]; levothyroxine 100 mcg tab 1 tab once daily [Active]; Lomotil Oral [Active]; loperamide 2 mg Oral cap 1 caps as needed [Active]; mirtazapine 7.5 mg Oral tab nightly [Active]; multivitamin with minerals Oral tab [Active]; Nifedipine ER Oral 30 mg nightly [Active]; Potassium Chloride Oral [Active]; ramipril 10 mg Oral cap 1 cap nightly [Active]; ranitidine HCl 150 mg Oral tab 1 tab 2 times per day [Active]; Santyl 250 unit/gram Topical oint once daily [Active]; sitagliptin 25mg Oral 1 tab once daily [Active]; Zofran (as hydrochloride) 4 mg Oral tab 1 tabs every 8 hours [Active]; - PMHx: 10:27 Anemia; ATHEROSCLEROSIS; cardiac murmur; chronic diarrhea; chronic kidney disease; jl7 constipation; Diabetes - NIDDM; Dialysis; Erectil dysfunction; ESRD; GERD; High Cholesterol; Hyperlipidemia; Hypertension; Hypothyroidism; iron deficiency; PVD; Secondary Hyperparathyroidism; - Immunization history:: Adult Immunizations up to date. - Social history:: Smoking status: Patient denies any tobacco usage or history of. ROS: 10:32 Constitutional: Negative for fever, chills, and weight loss, Cardiovascular: Negative kb for chest pain, palpitations, and edema, Respiratory: Negative for shortness of breath, cough, wheezing, and pleuritic chest pain, Abdomen/GI: Negative for abdominal pain, nausea, vomiting, diarrhea, and constipation, MS/Extremity: Negative for injury and deformity, Skin: Negative for injury, rash, and discoloration, Neuro: Negative for headache, weakness, numbness, tingling, and seizure. Exam: 10:32 Constitutional: This is a well developed, well nourished patient who is awake, alert, kb and in no acute distress. Head/Face: Normocephalic, atraumatic. Chest/axilla: Normal chest wall appearance and motion. Nontender with no deformity. No lesions are appreciated. Dialysis access to right chest Cardiovascular: Regular rate and rhythm with a normal S1 and S2. No gallops, murmurs, or rubs. Normal PMI, no JVD. No pulse deficits. Respiratory: Lungs have equal breath sounds bilaterally, clear to auscultation and percussion. No rales, rhonchi or wheezes noted. No increased work of breathing, no retractions or nasal flaring. Abdomen/GI: Soft, non-tender, with normal bowel sounds. No distension or tympany. No guarding or rebound. No evidence of tenderness throughout. Neuro: Awake and alert, GCS 15, oriented to person, place, time, and situation. Cranial nerves II-XII grossly intact. Motor strength 5/5 in all extremities. Sensory grossly intact. Cerebellar exam normal. Normal gait. 10:34 Musculoskeletal/extremity: wound vac and dressing to right lower extremity secondary to kb recent amputation. Vital Signs: 10:18 BP 153 / 69; Pulse 80; Resp 16 S; Temp 98.8(O); Pulse Ox 100% on R/A; Pain 0/10; jl7 10:43 BP 146 / 49; Pulse 79; Resp 16; Pulse Ox 100% ; jl7 11:20 BP 160 / 77; Pulse 76; Resp 16; Pulse Ox 100% ; jl7 MDM: 10:23 Patient medically screened. kb 10:33 Data reviewed: vital signs, nurses notes. Data interpreted: Pulse oximetry: on room air kb is 100 %. Interpretation: normal. 10:47 Counseling: I had a detailed discussion with the patient and/or guardian regarding: the kb historical points, exam findings, and any diagnostic results supporting the discharge/admit diagnosis, the need for outpatient follow up, to return to the emergency department if symptoms worsen or persist or if there are any questions or concerns that arise at home. Physician consultation: Ron Mae DO was contacted at 10:47, regarding consult, patient's condition, recommended have pt transferred back to [facility] for regular dialysis. Administered Medications: No medications were administered Disposition: 15:36 Co-signature as Attending Physician, Kings Batres MD. rn Disposition: 03/24/20 10:48 Discharged to Home. Impression: Essential (primary) hypertension. - Condition is Stable. - Discharge Instructions: Hypertension, [id number]. - Medication Reconciliation Form, Thank You Letter, Antibiotic Education, Prescription Opioid Use form. - Follow up: Emergency Department; When: As needed; Reason: Worsening of condition. Follow up: Private Physician; When: 2 - 3 days; Reason: Recheck today's complaints, Continuance of care, Re-evaluation by your physician. Signatures: Arlene Hayden, ALISHAC YOBANY-Ckb Chanel Damico RN RN iw Nieto, Roman, MD MD rn Leal, Jahala, RN RN jl7 Corrections: (The following items were deleted from the chart) 10:34 10:32 Constitutional: This is a well developed, well nourished patient who is awake, kb alert, and in no acute distress. Head/Face: Normocephalic, atraumatic. Chest/axilla: Normal chest wall appearance and motion. Nontender with no deformity. No lesions are appreciated. Cardiovascular: Regular rate and rhythm with a normal S1 and S2. No gallops, murmurs, or rubs. Normal PMI, no JVD. No pulse deficits. Respiratory: Lungs have equal breath sounds bilaterally, clear to auscultation and percussion. No rales, rhonchi or wheezes noted. No increased work of breathing, no retractions or nasal flaring. Abdomen/GI: Soft, non-tender, with normal bowel sounds. No distension or tympany. No guarding or rebound. No evidence of tenderness throughout. Skin: Warm, dry with normal turgor. Normal color with no rashes, no lesions, and no evidence of cellulitis. MS/ Extremity: Pulses equal, no cyanosis. Neurovascular intact. Full, normal range of motion. Neuro: Awake and alert, GCS 15, oriented to person, place, time, and situation. Cranial nerves II-XII grossly intact. Motor strength 5/5 in all extremities. Sensory grossly intact. Cerebellar exam normal. Normal gait. kb 12:59 10:48 03/24/2020 10:48 Discharged to Home. Impression: Essential (primary) iw hypertension. Condition is Stable. Forms are Medication Reconciliation Form, Thank You Letter, Antibiotic Education, Prescription Opioid Use. Follow up: Emergency Department; When: As needed; Reason: Worsening of condition. Follow up: Private Physician; When: 2 - 3 days; Reason: Recheck today's complaints, Continuance of care, Re-evaluation by your physician. kb
--- NOTE | 2020-03-24 10:49 | ER ---
Nurse's Notes [facility] Name: Amauri Boateng Age: 64 yrs Sex: Male : 1955 Arrival Date: 03/24/2020 Time: 10:18 Bed 7 Private MD: Diagnosis: Essential (primary) hypertension Presentation: 03/24 10:18 Chief complaint: EMS states: Pt being transported to [facility], initial [facility] BP was 190/90 then 200/101 and dialysis would not accept the pt. Pt reports he does not make urine. Pt had recent right foot amputation, wound vac noted. Pt denies pain. Coronavirus screen: Proceed with normal triage. Patient denies a cough. Patient denies shortness of breath or difficulty breathing. Patient denies measured and/or subjective temperature greater than 100.4F prior to today's visit. Patient denies travel on a cruise ship or to a country the [facility] currently lists as an affected area. Patient denies contact with known and/or suspected case of COVID-19. Ebola Screen: No symptoms or risks identified at this time. Initial Sepsis Screen: Does the patient meet any 2 criteria? No. Patient's initial sepsis screen is negative. Does the patient have a suspected source of infection? No. Patient's initial sepsis screen is negative. Risk Assessment: Do you want to hurt yourself or someone else? Patient reports no desire to harm self or others. Onset of symptoms was March 24, 2020. Care prior to arrival: None. 10:18 Method Of Arrival: EMS: [facility] jl7 10:18 Acuity: KRISTIN 3 jl7 10:44 Transition of care: [place]. jl7 Triage Assessment: 10:27 General: Appears in no apparent distress. comfortable, Behavior is calm, cooperative, jl7 appropriate for age. Pain: Denies pain. Neuro: Level of Consciousness is awake, alert, obeys commands, Oriented to person, place, time, situation. Cardiovascular: Patient's skin is warm and dry. Respiratory: Airway is patent Respiratory effort is even, unlabored, Respiratory pattern is regular, symmetrical. : Reports Does not make urine. Derm: Skin is pink, warm \T\ dry. Historical: - Allergies: 10:27 tramadol; jl7 - Home Meds: 10:27 acetaminophen-codeine 300-30 mg Oral tab 1 tab every 4 hours [Active]; ascorbic acid jl7 (vitamin C) 500 mg tab [Active]; aspirin 81 mg Oral chew 1 tab once daily [Active]; atorvastatin 10 mg Oral tab 1 tab nightly [Active]; clonidine 0.1 mg/24 hr transdermal ptwk 1 patch once wkly [Active]; clopidogrel 75 mg Oral tab 1 tab once daily [Active]; duloxetine 30 mg Oral cpDR 1 cap once daily [Active]; Eliquis Oral [Active]; hydralazine 25 mg Oral tab three times a day [Active]; Lactobacillus rhamnosus GG Oral twice a day [Active]; levothyroxine 100 mcg tab 1 tab once daily [Active]; Lomotil Oral [Active]; loperamide 2 mg Oral cap 1 caps as needed [Active]; mirtazapine 7.5 mg Oral tab nightly [Active]; multivitamin with minerals Oral tab [Active]; Nifedipine ER Oral 30 mg nightly [Active]; Potassium Chloride Oral [Active]; ramipril 10 mg Oral cap 1 cap nightly [Active]; ranitidine HCl 150 mg Oral tab 1 tab 2 times per day [Active]; Santyl 250 unit/gram Topical oint once daily [Active]; sitagliptin 25mg Oral 1 tab once daily [Active]; Zofran (as hydrochloride) 4 mg Oral tab 1 tabs every 8 hours [Active]; - PMHx: 10:27 Anemia; ATHEROSCLEROSIS; cardiac murmur; chronic diarrhea; chronic kidney disease; jl7 constipation; Diabetes - NIDDM; Dialysis; Erectil dysfunction; ESRD; GERD; High Cholesterol; Hyperlipidemia; Hypertension; Hypothyroidism; iron deficiency; PVD; Secondary Hyperparathyroidism; - Immunization history:: Adult Immunizations up to date. - Social history:: Smoking status: Patient denies any tobacco usage or history of. Screenin:28 Abuse screen: Denies threats or abuse. Denies injuries from another. Nutritional jl7 screening: No deficits noted. Tuberculosis screening: No symptoms or risk factors identified. Fall Risk No fall in past 12 months (0 pts). Secondary diagnosis (15 points) impaired mobility, No IV (0 pts). Ambulatory Aid- None/Bed Rest/Nurse Assist (0 pts). Gait- Normal/Bed Rest/Wheelchair (0 pts) Mental Status- Oriented to own ability (0 pts). Total Bateman Fall Scale indicates No Risk (0-24 pts). Assessment: 10:28 General: See triage assessment. jl7 11:15 Reassessment: Pt awaiting transportation. jl7 Vital Signs: 10:18 BP 153 / 69; Pulse 80; Resp 16 S; Temp 98.8(O); Pulse Ox 100% on R/A; Pain 0/10; jl7 10:43 BP 146 / 49; Pulse 79; Resp 16; Pulse Ox 100% ; jl7 11:20 BP 160 / 77; Pulse 76; Resp 16; Pulse Ox 100% ; jl7 ED Course: 10:18 Patient arrived in ED. jl7 10:22 Arlene Hayden FNP-C is PHCP. kb 10:22 Kings Batres MD is Attending Physician. kb 10:24 Triage completed. jl7 10:27 Arm band placed on right wrist. jl7 10:28 Patient has correct armband on for positive identification. Bed in low position. Call jl7 light in reach. Side rails up X2. residential monitor on. Pulse ox on. NIBP on. Warm blanket given. 10:43 Leanna Marshall, RN is Primary Nurse. jl7 10:50 [facility] and spoke with Helen to inform them that pt is being discharged em1 and is ready for transport. Was advised that they would be calling for transport back to dialysis center. 11:15 No provider procedures requiring assistance completed. Patient did not have IV access jl7 during this emergency room visit. Administered Medications: No medications were administered Outcome: 10:48 Discharge ordered by MD. kb 11:15 Discharged to [facility] to go to Dialysis jl7 11:15 Condition: stable 11:15 Discharge instructions given to patient, Instructed on discharge instructions, follow up and referral plans. Demonstrated understanding of instructions, follow-up care. 12:59 Patient left the ED. iw Signatures: Arlene Hayden FNP-C FNP-Ckb Williams, Irene, RN RN Tulio Gregorio em1 Leanna Marshall, SHANTI RN jl7
--- OUTSIDE RECORDS SUMMARY | 2020-03-24 11:58 | XMS REPORT | Clinical Summary ---
:1955 Author Organization [facility] Address [address] [place] [address] Care Team Providers Name Role Phone Anthony [...] 05/19/20 Active (CATAPRES-TTS) (0.1 mg total) on 06 21 0.1 mg/24 hr the skin once a [...] Anthony Rice 05/14/2019 Medicine MD Lorie after 03/24/2019 Social History Tobacco Use Types Packs/Day Years [...] procedure are i n the results section. OH AN ELECTIVE Routine 05/06/2019 3:22 SUPRAGLOTTIC AIRWAY PM CDT Procedure Note - Henok Steele CRNA - 05/06/2019 3:22 PM CDT Airway Date/Time: 05/06/2019 3:15 PM Performed by: Neftali Steele CRNA Authorized by: Janine Christian MD Location: OR Urgency: Elective Difficult Airway: No Anesthesiologist: Kim Christian MD Resident/MEDICAL OFFICE TECHNOLOGY INSTRUCTOR/AA: Thalia Steele CRNA Preoxygenated with 100% O2: [...] i n the results section . after 03/24/2019 Results Estimated GFR (05/14/2019 5:30 AM CDT)Only the most recent of14 resultswithin the time period is included. Estimated GFR 17 (A) mL/min/1.73 [facility] Comment: m2 [facility] Catergory Units Interpretation HOS PITAL G1 >=90 [...] specimen Performing Organization Address City/State/Zipcode Phone Number [facility] DEPARTMENT OF PATHOLOGY [address] [facility]. [employer] [address] AND GENOMIC MEDICINE [facility] [employer] [facility] [address] [facility] CBC with platelet and differential (05/14/2019 5:30 AM CDT)Only the most recent of12 resultswithin the time period is included. [facility] Signature WBC 7.5 4.5 - 11.0 k/uL [facility] RBC 3.27 (L) 4.40 - 6.00 [facility] m/uL [facility] HGB 9.4 (L) 14.0 - 18.0 [facility] g/dL [facility] HCT 30.4 (L) 41.0 - 51.0 % [facility] MCV 93.0 82.0 - 100.0 fL [facility] MCH 28.7 27.0 - 34.0 pg [facility] MCHC 30.9 (L) 31.0 - 37.0 [facility] g/dL [facility] RDW - SD 52.5 37.0 - 55.0 fL [facility] MPV 9.2 6.9 - 11.0 fL [facility] Platelet count 184 150 - 400 K/uL [facility] Nucleated RBC 0.00 /100 WBC [facility] Neutrophils 62.2 39.0 - 69.0 % [facility] Lymphocytes 16.9 (L) 25.0 - 45.0 % [facility] Monocytes 13.3 (H) 0.0 - 10.0 % [facility] Eosinophils 6.3 (H) 0.0 - 5.0 % [facility] Basophils 0.8 0.0 - 1.0 % [facility] Immature granulocytes 0.5 0.0 - 1.0 % [facility] Specimen Blood Performing Organization Address City/State/Zipcode Phone Number [facility] DEPARTMENT OF PATHOLOGY [address] [place] [address] AND GENOMIC MEDICINE [facility] [address] Basic metabolic panel (05/14/2019 5:30 AM CDT)Only the most recent of13 results within the time period is included. [facility] Sig nature Sodium 136 135 - 148 mEq/L [facility] Potassium 4.0 3.5 - 5.0 mEq/L [facility] Chloride 98 98 - 112 mEq/L [facility] CO2 25 24 - 31 mEq/L [facility] Anion gap 13@ANIO 7 - 15 mEq/L [facility] BUN 26 (H) 8 - 23 mg/dL [facility] Creatinine 3.55 (H) 0.70 - 1.20 mg/dL [facility] Glucose 83 65 - 99 mg/dL [facility] Calcium 8.6 (L) 8.8 - 10.2 mg/dL [facility] Specimen Plasma specimen Performing Organization Address City/[facility]/Zipcode Phone Number [facility] DEPARTMENT OF PATHOLOGY [address] [place] [address] POC glucose (05/13/2019 12:35 PM CDT)Only the most recent of35 resultswithin the time period is included. Pathologist Sig nature POC glucose 69 65 - 99 mg/dL [facility] Comment: [facility] RN Notified Meter ID: [id number] Director Of Marketing Communications: Michelle Cervantes Specimen Performing Organization Address [facility]/Zipcode Phone Number [facility] DEPARTMENT OF PATHOLOGY [address] [place] [address] Ammonia level (05/09/2019 12:00 PM CDT)Only the most recent of2 resultswithin the time period is included. Pathologist Sig nature Ammonia 14 (L) 16 - 60 umol/L [facility] Specimen Plasma specimen Performing Organization Address City/[facility]/Zipcode Phone Number [facility] DEPARTMENT OF PATHOLOGY [address] [place] [address] Prothrombin time with INR (05/09/2019 4:45 AM CDT)Only the most recent of3 resultswithin the time period is included. Prothrombin time 21.0 (H) 11.5 - 14.5 [facility] INR 1.9 [place] Comment: [facility] International Normalized Ratio (INR) is a therapeu [facility] monitoring tool for patients who are stable on oral anticoagulant therapy. An INR of 2.0-3.0 is suggested for deep vein thrombosis/pulmonary embolism. Specimen Blood Performing Organization Address City/State/Zipcode Phone Number [facility] DEPARTMENT OF PATHOLOGY [address] [facility] [address] AND GENOMIC MEDICINE [facility] [address] [facility] [address] HOSPITAL EEG (routine) (05/07/2019 4:09 PM CDT) [...] in the brain or extra axial region. [facility]-[id number] Procedure Note Hm Interface, Radiology Results Incoming [...] in the brain or extra axial region. [id number] Performing Organization Address City/[facility]/Zipcode Phone Number [facility] [address] [place] [address] ECG 12 lead (05/06/2019 11:51 AM CDT) Pathologist Sig nature Ventricular rate 95 [facility] MUSE Atrial rate 95 [facility] MUSE [place] interval 168 [facility] MUSE QRSD interval 80 [...] is no t available. Performing Organization Address [facility] Phone Number [facility] MUSE [address] [place] [address] Blood culture, aerobic & anaerobic (05/06/2019 8:19 AM CDT)Only the most recent of3 resultswithin the time period is included. Blood culture No growth after 5 days of incubation. [facility] isolate Comment: HOSPITAL Specimen Information Specimen Source: Blood Specimen Site: Dialysis catheter Specimen Blood - Dialysis catheter Performing Organization Address City/[facility]/Zipcode Phone Number [facility] DEPARTMENT OF PATHOLOGY AND [address] [place] [phone] GENOMIC MED[address] [address] Hemoglobin A1c (05/05/2019 5:20 AM CDT) Hemoglobin A1C 4.7 4.0 - 5.6 % [facility] Comment: [place] HbA1c cutoffs for diagnosing [...] Blood Performing Organization Address City/State/Zipcode Phone Number [facility] DEPARTMENT OF PATHOLOGY [address] [facility]. [place] [address] AND GENOMIC MEDICINE [facility] BREANNE [place] [address] [facility] [place] [address] HOSPITAL EEG (routine) (05/04/2019 9:12 AM CDT) [...] gross abnormalities. IMPRESSION: No acute intracranial abnormality. [facility]-[id number] Procedure Note Interface, Radiology Results Incoming - [...] gross abnormalities. IMPRESSION: No acute intracranial abnormality. [facility]-[id number] Performing Organization Address City/[facility]/Zipcode Phone Number [facility] [address] [place] [address] Syphilis total antibody (05/03/2019 4:47 PM CDT) Syphilis total Non-reactiveComment Non-reactive [facility] antibody : No serological HOSPITAL evidence of syphilis infection. Specimen Serum Performing Organization Address City/[facility]/Zipcode Phone Number [facility] DEPARTMENT OF PATHOLOGY AND [address] [place], [place] [address] [address] GEN[address] [address] Vitamin B12 level (05/03/2019 4:47 PM CDT) Vitamin B12 1,098 (H) 211 - 946 [facility] Comment: pg/mL HOSPITAL Significant overlap exists between normal and deficien cy states. However, most patients with deficiencies will have Ser um B12 <200 pg/mL. Specimen Serum Performing Organization Address City/State/Zipcode Phone Number [facility] DEPARTMENT OF PATHOLOGY AND [address] [place] [phone] [facility] [address] [place] [address] Hepatitis B surface Ab, quantitative (05/03/2019 10:30 [...] and Tissue-Based Products (HCT/P) . Performed by [employer], [address] [place] [address] www.[email or web address], Elie Dick MD - Lab. Director Specimen Serum Performing Organization Address [facility]/Zipcode Phone Number [facility] [address] [place] [address] [facility] [address] [place] [address] Hepatitis B surface antigen (05/03/2019 10:30 AM CDT) Pathologist Sig nature Hepatitis B surface Non-reactive Non-reactive [facility] Specimen Blood Performing Organization Address City/State/Zipcode Phone Number [facility] DEPARTMENT OF PATHOLOGY [id number] [place] [address]. [place] [address] AND GENOMIC MEDICINE [address] X [phone] [place] [address] Lactic acid level, SEPSIS - Now and repeat 2x every 3 hours (05/03/2019 6:00 AM CDT)Only the most recent of3 resultswithin the time period is included. Pathologist Sig nature Lactic acid 0.7 0.5 - 2.2 mmol/L [facility] Specimen Plasma specimen Performing Organization Address [facility] Phone Number [facility] DEPARTMENT OF PATHOLOGY [address] [place] [address] X [facility] AND [address] X [address] [place] [address] Thyroid stimulating hormone (05/03/2019 3:00 AM CDT) Pathologist Sig nature TSH 95.40 (H) 0.27 - 4.20 uIU/mL [facility] Specimen Blood Performing Organization Address [facility] Phone Number [facility] DEPARTMENT OF PATHOLOGY [address] [place] [address] X [facility] AND [address] T4, free (05/03/2019 3:00 AM CDT) Pathologist Sig nature T4, free 0.7 (L) 0.9 - 1.7 ng/dL [facility] Specimen Blood Performing Organization Address [facility] Phone Number [facility] DEPARTMENT OF PATHOLOGY [address] [place] [address] Comprehensive metabolic panel (05/03/2019 3:00 AM CDT) Sodium 128 (L) 135 - 148 [facility] mEq/L [facility] Potassium 5.9 (H) 3.5 - 5.0 [facility] mEq/L [facility] Chloride 90 (L) 98 - 112 mEq/L [facility] CO2 20 (L) 24 - 31 mEq/L [facility] Anion gap 18@ANIO (H) 7 - 15 mEq/L [facility] BUN 70 (H) 8 - 23 mg/dL [facility] Creatinine 8.44 (H) 0.70 - 1.20 [facility] mg/dL [facility] Glucose 92 65 - 99 mg/dL [facility] Calcium 9.5 8.8 - 10.2 [facility] mg/dL [facility] Protein 6.2 (L) 6.3 - 8.3 g/dL [facility] Albumin 3.3 (L) 3.5 - 5.0 g/dL [facility] A/G ratio 1.1 0.7 - 3.8 [facility] Alkaline phosphatase 145 (H) 40 - 129 U/L [facility] AST 22 10 - 50 U/L [facility] ALT 14 5 - 50 U/L [facility] Total bilirubin 0.3 0.2 - 1.2 [facility] mg/dL [facility] Specimen Plasma specimen Performing Organization Address City/[facility] Phone Number [facility] DEPARTMENT OF PATHOLOGY [address] [facility] [place] [address] AND [facility] [id number] [place] [address] HOSPITAL Aerobic culture (05/02/2019 11:55 PM CDT)Only the most recent of2 resultswithin the time period is included. Aerobic culture Mixed edwige- more than 3 organisms isolated. [facility] isolate Consider resubmitting specimen if clinically indicated . HOSPITAL Comment: Specimen Information Specimen Source: Wound Specimen Site: Right Leg Specimen Wound Performing Organization Address [facility] Phone Number [facility] DEPARTMENT OF PATHOLOGY AND [address] [place] [address] [phone] [address] Gram stain (05/02/2019 11:55 PM CDT)Only the most recent of2 resultswithin the time period is included. Gram stain isolate No WBC's or organisms seen. [facility] Comment: HOSPITAL Specimen Information Specimen Source: Wound Specimen Site: Right Leg Specimen Wound Performing Organization Address City/[facility] Phone Number [facility] DEPARTMENT OF PATHOLOGY AND [address] [place] [address] [phone] [address] Anaerobic culture (05/02/2019 11:55 PM CDT) Anaerobic culture No anaerobic organisms isolated. [facility] isolate Comment: HOSPITAL Specimen Information Specimen Source: Wound Specimen Site: Right Leg Specimen Wound - Leg Performing Organization Address City/State/Zipcode Phone Number [facility] DEPARTMENT OF PATHOLOGY AND [address] [place], [place] [address] GENOMIC MEDICINE [facility] [address] [place] [address] after 03/24/2019 Insurance Payer Benefit Plan / Subscriber ID Effective Dates Phone Addre ss Type Group MEDICARE MEDICARE PART A xxxxxxxxxxx 2010-Present [place], [place] Medicare AND B (Home) [address] [place] [address] Advance Directives For more information, please contact: [phone] Type Date Recorded Patient Superintendent Local Explanati on Advance Directives, Living Will and Medical Power of Public Service Officer
--- OUTSIDE RECORDS SUMMARY | 2020-03-24 11:59 | XMS REPORT | Clinical Summary ---
:1955 Author Organization [facility] Address [address] [place] [address] Care Team Providers Name Role Phone Unavailable [...] Care Team Description 03/02/2020 Hospital Encounter after 03/24/2019 Social History Tobacco Use Types Packs/Day Years Used Date Never Smoker Sex Assigned at Date Recorded Not on file Job Start Date Occupation Industry Not on file Not on file Not on file Travel History Travel Start Travel End No recent travel history available. Last Filed Vital Signs Not on file Plan of Treatment Not on file Results Not on fileafter 03/24/2019 Insurance Payer Benefit Plan / Group Subscriber ID Type Phone A ddress MEDICARE MEDICARE A B xxxxxxxxxxx Medicare AETNA - [place] CARE AETNA HMO POS QPOS xxxxxxxxx HMO/POS [phone] [place] [id number]
--- OUTSIDE RECORDS SUMMARY | 2020-03-24 12:06 | XMS REPORT | Continuity of Care Document ---
:1955 Author Organization [facility] t Address [address] [place] [address] Dr. Chavez[address] [place] [address] Care Team Providers Name Role Phone Lorie Rice MD Primary Care Physician Harrison Bowers Attending Clinician Hema AZEVEDO, L Attending Clinician Doctor Unassigned, Name Attending Clinician Unavailable HEDY Attending Clinician Unavailable Lorie Rice MD Attending Clinician Aminah Kerns MD Attending Clinician Sharmila Damico CRNA Attending Clinician Saurabh Arriaga MD Attending Clinician Vishal AZEVEDO Attending Clinician Dwayne Attending Clinician Unavailable LORIE RICE Attending Clinician Unavailable Ruddy Tucker Attending Clinician Harrison Bowers Admitting Clinician HEDY Admitting Clinician Unavailable Dwayne Admitting Clinician Unavailable LORIE RICE Admitting Clinician Unavailable Payers Payer Name Policy Policy Number Effective Expiration Source Type Date Date MEDICAREMEDICARE A xxxxxxxxxxx THERESA Campbell BxxxxxxxxxxxMedicare - Ca dical Center AETNA - MGD CAREAETNA xxxxxxxxx THERESA Gardner HMO POS - Medical QPOSxxxxxxxxxHMO/POS Cent er MEDICAREMEDICARE PART A xxxxxxxxxxx 2010 [place] AND 00:00:00 Protestant [id number] JAY GaleMedicare Problems Condition Condition Condition Status Onset Resolution Last Treating Co mments Source Name Details Category Date Date Treatment Clinician Date SEVERE PVD Diagnosis Active 2020-03-23 Memoria 03-02 21:53:00 l SEVERE 00:00: Kory PVD 00 Active 03/02/2020 [facility] Toxic Toxic Disease Active [place] 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-02 Meth robert encephalop encephalop 00:00: st athy athy 00 Pneumonia Pneumonia Disease Active 2017-[address] [facility] [address] 10[facility]12 [facility] 00 [place] Chronic Chronic Disease Active 2017-10 [facility] kidney kidney 10-12 [facility] - disease disease 00:00: Medical 00 Center N/A Diagnosis Active 2017-01-30 Mem oria 01-27 11:47:00 l N/A 00:00: Kory 00 Active 01/27/2017 [facility] WOUND Diagnosis Active 2017-02-03 Mem oria CLOSURE 01-27 12:47:00 l LEFT MID WOUND 00:00: Kory FOOT CLOSURE 00 AMPUTATION LEFT MID FOOT AMPUTATION Active 01/27/2017 [facility] Left knee Condition Active 2019-04-30 Memoria injury, 02-01 19:31:05 l initial Left 00:00: Kory encounter knee 00 injury, initial encounter Active 02/02/2016 04/30/2019 [facility] Left knee Condition Active 2020-02-13 Memoria injury, 5-03 07:08:06 l initial Left 00:00: Vance encounter knee 00 injury, initial encounter Active 02/02/2016 02/13/2020 [facility] Health Pain in Pain in Problem Active [facility] [...] morphology , initial , initial encounter encounter Other Problem 2019-02-16 Memor ia injury of 04:01:51 l unspecifie Other [place] d body injury of region, unspecifie initial d body encounter region, initial encounter 02/16/2019 [facility] Diabetes Problem Active 2020-03-21 Mem oria mellitus 22:01:37 l (disorder) Diabetes He rmann mellitus (disorder) Active Problem 03/21/2020 [facility], [facility] End stage Problem Active 2020-03-21 Me moria renal 22:01:37 l failure on End Trav n dialysis stage (disorder) renal failure on dialysis (disorder) Active Problem 03/21/2020 [facility] Hypertensi Problem Active 2020-03-21 M emoria ve 22:01:37 l disorder, Vance systemic Hypertensi arterial ve (disorder) disorder, systemic arterial (disorder) Active Problem 03/21/2020 [facility] Hypothyroi Problem Active 2020-03-21 M emoria dism 22:01:37 l (disorder) Trav n Hypothyroi dism (disorder) Active Problem 03/21/2020 [facility] Moderate Problem Active 2020-03-21 Mem oria protein 22:01:37 l energy Moderate Trav n malnutriti protein on energy (disorder) malnutriti on (disorder) Active Problem 03/21/2020 [facility] Peripheral Problem Active 2020-03-21 M emoria vascular 22:01:37 l disease Vance (disorder) Peripheral vascular disease (disorder) Active Problem 03/21/2020 [facility] Diabetes Problem Active 2020-03-21 Mem oria mellitus 22:01:37 l type 2 Diabetes Trav n (disorder) mellitus type 2 (disorder) Active Problem 03/21/2020 [facility] Closed Diagnosis Active 2020-02-13 Mem oria fracture 07:08:06 l of right Closed Trav n wrist, fracture initial of right encounter wrist, initial encounter Active 0 [facility] OTH Diagnosis Active 2017-02-03 Mem oria COMPLICATI 12:47:00 l ONS OF OTH Vance PROCEDURES COMPLICATI , NEC, IN ONS OF PROCEDURES , NEC, IN Active [facility] PERIPHERAL Diagnosis Active 2020-03-23 Memoria VASCULAR 21:53:00 l DISEASE, Vance UNSPECIFIE PERIPHERAL D VASCULAR DISEASE, UNSPECIFIE D Active [facility] Allergies, Adverse Reactions, Alerts Allergy Allergy Status Severity Reaction(s) Onset Inactive Treating Comm ents Source Name Type Date Date Clinician No Known No Known Active Memori a Medicati Medicati l on on Vance Allergie Allergie s s Social History Social Habit Start Date Stop Date Quantity Comments Source History SDOH Alcohol [place] Std Drinks History SDOH Alcohol [place] Binge Sex Assigned [facility] ethodist Alcohol intake 2019-05-07 2019-05-07 [facility] thodist 00:00:00 00:00:00 History SDOH Alcohol 2019-05-03 2019-05-03 [place] Frequency 00:00:00 00:00:00 Social History 2019-02-15 2019-02-15 [facility] ermann 04:59:59 04:59:59 Smoking Status Start Date Stop Date Source Former Smoker [facility] Tobacco smoking status MDIS Jayy alanis Vance Social History 2017-01-27 22:27:45 [facility] Medications Ordered Filled Start Stop Current Ordering Indication Dosage Frequency Signature Comments Components Source Medication Medication Date Date Medication? Clinician (SIG) Name Name Metronidazo Yes 500 mg = 1 Memoria le 500 MG 6-18 tab, PO, l Oral Tablet 16:14: Q8H, X 14 H ermann [Flagyl] 00 day, # 42 tab, 0 Refill(s), given to patient Metronidazo 2020-0 Yes 500 mg = 1 Memoria le 500 MG 6-18 tab, PO, l Oral Tablet 15:35: TID, X 14 H ermann [Flagyl] 00 day, # 42 tab, 0 Refill(s), given to patient cefepime 2 Yes See Memoria g injection 6-18 Instructio l 15:35: ns, 2 gm Kory with dialysis T, TH, SAT for 28 days, # 28 ea, 0 Refill(s), given to patient heparin 2019-0 No Notes: Memoria sodium, 6- porcine l porcine 21:00: heparin Kory 2500 UNT/ML 00 Injectable Solution ondansetron No Route: IV, Memoria (ANES) 03-13 Drug form: l 19:55: INJ, ONCE, Stop date: 03/13/20 14:55:00 CDT ePHEDrine No Route: IV, Me moria (ANES) 03-13 Drug form: l 19:36: INJ, ONCE, Stop date: 03/13/20 14:36:00 CDT midazolam No Route: IV, Me moria (ANES) 03-13 Drug form: l 19:36: SOLN, 00 ONCE, Stop date: 03/13/20 14:36:00 CDT fentaNYL 2019- No Route: IV, Mem oria (ANES) 03-13 Drug form: l 19:36: INJ, ONCE, Stop date: 03/13/20 14:36:00 CDT propofol 2019-0 No Route: IV, Mem oria (ANES) 03-13 Drug form: l 19:36: INJ, ONCE, Stop date: 03/13/20 14:36:00 CDT lidocaine 2019- No Route: IV, Me moria (ANES) 03-13 Drug form: l 19:36: INJ, ONCE, Stop date: 03/13/20 14:36:00 CDT Sodium No Route: IV, Memor ia Chloride 03-13 Total l 0.9% IV 18:38: Volume: Kory (ANES) 1000 00 1,000, mL Start date: 03/13/20 13:38:00 CDT, Stop date: 03/13/20 14:38:00 CDT D5W 1/2NS No 1,000 mL, Mem oria 1,000 mL 03-13 Rate: 75 l 13:46: ml/hr, Vance 00 Infuse over: 13.3 hr, Route: IV, Dosing Weight 57.727 kg, Total Volume: 1,000, Priority: STAT, Start date: 03/13/20 8:46:00 CDT, Duration: 30 day, Stop date: 04/12/20 8:45:00 CDT, 1.63, m2, 0 cefepime 2020-0 No Notes: Memoria 6-12 (Same As: l 02:00: Maxipime) Vance 00 MEDICATION WASTE Product Size: 1000 mg Product Wasted: ___ mg Lovenox 2020-0 No Notes: Memoria 6-10 (Same as: l 20:00: Lovenox) Hydralazine 2019-0 No Notes: Jayy luz 6-10 (Same as: l 19:50: Apresoline ) Push over 5 minutes Metoprolol 2019-0 No Notes: Memor ia 6-10 (Same as: l 19:50: Lopressor) Push over 2 minutes Ketorolac 2019-0 No 4 days Memor ia 6-10 l 19:50: MEDICATION Vance 00 WASTE Product Size: 30 mg Product Wasted: ___ mg Acetaminoph 2019-0 No Notes: Max Memoria en 6-10 acetaminop l 19:50: hen 4000 Kory 00 mg/day (4 gm/day). (Same as: Tylenol Extra Strength) Morphine 2019-0 No Notes: Memoria 6-10 (Same l 19:50: as:MORPhin Kory 00 e Sulfate) Flumazenil 2019-0 No Notes: Memor ia 6-10 (Same as: l 19:50: Romazicon) Naloxone 2019-0 No Notes: Memoria 6-10 Same as l 19:50: Narcan Albuterol 2019-0 No Notes: SEE Me moria 0.83 MG/ML 6-10 RT l Inhalant 19:50: DOCUMENTAT Her woodall Solution 00 ION (Same as: Proventil) Diphenhydra 2020-0 No Notes: Jayy luz mine 6-10 (Same as: l 19:50: Benadryl) Meperidine 2019-0 No Notes: Memor ia 6-10 (Same As: l 19:50: Demerol) Ondansetron 2020-0 No Notes: Jayy luz 6-10 (Same as: l 19:50: Zofran) MEDICATION WASTE Product Size: 4 mg Product Wasted: ___ mg Promethazin 2019- No Notes: Do M emoria e 6- not give l 19:50: IV push. (Same as: Phenergan) Calcium 2019-0 No 1,000 mL, Memor ia Chloride 03-11 Rate: 100 l 0.0014 19:50: ml/hr, MEQ/ML / 00 Infuse Potassium over: 10 Chloride hr, Route: 0.004 IV, Dosing MEQ/ML / Weight Sodium 57.727 kg, Chloride Total 0.103 Volume: MEQ/ML / 1,000, Sodium Start Lactate date: 0.028 03/11/20 MEQ/ML 14:50:00 Injectable CDT, Solution Duration: 30 day, Stop date: 04/10/20 14:49:00 CDT, 1.63, m2, 0 normal No 1,000 mL, Memori a saline 0.9% 03-11 Rate: 100 l IV 1,000 mL 19:50: ml/hr, Infuse over: 10 hr, Route: IV, Dosing Weight 57.727 kg, Total Volume: 1,000, Start date: 03/11/20 14:50:00 CDT, Duration: 30 day, Stop date: 04/10/20 14:49:00 CDT, 1.63, m2, 0 Hydromorpho 2019-0 No Notes: Jayy luz ne 03-11 (Same as: l 19:50: Dilaudid) ceFAZolin No Route: IV, Me moria (ANES) 6-10 Drug form: l 19:39: INJ, ONCE, Stop date: 03/11/20 14:39:00 CDT fentaNYL 2019-0 No Route: IV, Mem oria (ANES) 6-10 Drug form: l 19:39: INJ, ONCE, Stop date: 03/11/20 14:39:00 CDT lidocaine 2019-0 No Route: IV, Me moria (ANES) 6-10 Drug form: l 19:30: INJ, ONCE, Stop date: 03/11/20 14:30:00 CDT propofol 2020-0 No Route: IV, Mem oria (ANES) 03-11 Drug form: l 19:30: INJ, ONCE, Stop date: 03/11/20 14:30:00 CDT vancomycin 2019- No Route: IV, M emoria (ANES) 1000 03-11 Drug form: l mg 18:59: INJ, Start date: 03/11/20 13:59:00 CDT, Stop date: 03/11/20 14:59:00 CDT Coreg No Notes: Memoria 03-09 Give with l 15:00: food. Kory 00 (Same As: Coreg) Norvasc No Notes: Memoria 03-08 (Same as: l 14:07: Norvasc) Morphine No Notes: Memoria 03-06 (Same l 19:11: as:MORPhin e Sulfate) Epogen No Notes: Memoria 03-05 Same as: l 22:00: Retacrit) epoetin agueda-epbx 54000 unit/1 ml VL. For dialysis use only. WASTE: F/P - Red; E Red MEDICATION WASTE Product Size: 45008 unit Product Wasted: ___ unit Dextrose 2019-0 No 25 mL, Memoria 50% Syringe 03-05 Route: l (D50W) 20:08: IVP, Dosing Weight 57.727, kg, PRN, PRN Blood Glucose Results, Start date: 03/05/20 15:08:00 CDT, Duration: 30 day, Stop date: 04/04/20 15:07:00 CDT Glucagon No 1 mg, Memoria 03-05 Route: IM, l 20:08: PRN, Dosing Weight 57.727, kg, PRN Blood Glucose Results, Start date: 03/05/20 15:08:00 CDT, Duration: 30 day, Stop date: 04/04/20 15:07:00 CDT Dextrose 5% 2019-0 No 1,000 mL, M emoria in Water IV 03-05 Rate: 40 l 1,000 mL 20:07: ml/hr, Infuse over: 25 hr, Route: IV, Dosing Weight 57.727 kg, Total Volume: 1,000, Start date: 03/05/20 15:07:00 CDT, Duration: 30 day, Stop date: 04/04/20 15:06:00 CDT, 1.63, m2, 0 Sodium 2020-0 No 250 mL, Memoria Chloride 03-05 Rate: To l 0.9% 13:22: prime line Vance (titrate) 00 and flush 250 mL remaining blood products., Dosing Weight 57.727, kg, Route: IV, Total Volume: 250, Start Date: 03/05/20 8:22:00 CDT, Duration: 1 day, Stop date: 03/06/20 8:21:00 CDT, Replace Every: 24 hr, 0 D10W 1,000 2020-0 No 1,000 mL, Me moria mL 03-05 Rate: 40 l 04:42: ml/hr, Infuse over: 25 hr, Route: IV, Dosing Weight 57.727 kg, Total Volume: 1,000, Start date: 03/04/20 23:42:00 CDT, Duration: 30 day, Stop date: 04/03/20 23:41:00 CDT, 1.63, m2, 0 Dilaudid 2020-0 No 0.5 mg, Memori a 03-04 Route: l 22:07: IVP, ONCE, Dosing Weight 57.727, kg, Start date: 03/04/20 17:07:00 CDT, Stop date: 03/04/20 17:07:00 CDT ondansetron 0 No Route: IV, Memoria (ANES) 03-04 Drug form: l 21:58: INJ, ONCE, Stop date: 03/04/20 16:58:00 CDT metoclopram 2019-0 No Route: IV, Memoria joss (ANES) 03-04 Drug form: l 21:58: INJ, ONCE, Stop date: 03/04/20 16:58:00 CDT Dilaudid 2020-0 No 0.5 mg, Memori a 03-04 Route: l 21:55: IVP, ONCE, Dosing Weight 57.727, kg, Start date: 03/04/20 16:55:00 CDT, Stop date: 03/04/20 16:55:00 CDT propofol No Route: IV, Mem oria (ANES) 6- Drug form: l 21:52: INJ, ONCE, Vance Stop date: 03/04/20 16:52:00 CDT ceFAZolin No Route: IV, Me moria (ANES) 6- Drug form: l 21:52: INJ, ONCE, Kory 00 Stop date: 03/04/20 16:52:00 CDT Fentanyl No Notes: Memoria 6-03 (Same as: l 21:44: Sublimaze) Preservat shima free. Oxycodone No Notes: Memori a Hydrochlori - (Same as: l de 5 MG 21:44: Roxicodone Herm alda Oral Tablet ) Flumazenil No Notes: Memor ia 6- (Same as: l 21:44: Romazicon) Naloxone No Notes: Memoria 6-03 Same as l 21:44: Narcan Ondansetron No Notes: Jayy luz 6- (Same as: l 21:44: Zofran) MEDICATION WASTE Product Size: 4 mg Product Wasted: ___ mg Sodium No Route: IV, Memor ia Chloride 6- Total l 0.9% IV 21:02: Volume: Kory (ANES) 1000 00 1,000, mL Start date: 03/04/20 16:02:00 CDT, Stop date: 03/04/20 17:02:00 CDT 168 HR No Notes: Memoria Clonidine 6-03 Patch l 0.60566 14:00: delivers Trav n MG/HR 00 0.1 mg/24 Transdermal hours; Patch Patch is applied weekly. "Remove old patch before applicatio n of new patch" (Same As: Catapres-T TS-1) atorvastati No Notes: Jayy luz n 6-03 (Same As: l 02:00: Lipitor) Mirtazapine No Notes: Jayy luz 6-03 (Same l 02:00: as:Remeron ) cefepime 2019-0 No Notes: Memoria 03-04 (Same As: l 00:00: Maxipime) MEDICATION WASTE Product Size: 1000 mg Product Wasted: ___ mg Flagyl 2019-0 No Notes: Memoria 03-04 (Same as: l 00:00: Flagyl) Take with food/ avoid alcohol Vancomycin 2019-0 No 2001 mg: Me moria 03-03 infuse l 23:58: over 2.5 hours For adult patients only: Round to nearest 250 mg per Medical Staff approval MEDICATION WASTE Product Size: 1000 mg Product Wasted: ___ mg Epogen 2019-0 No Notes: Memoria 03-03 (Same as: l 23:54: Retacrit) epoetin agueda-epbx 4,000 unit/1ml VL. For dialysis use only. WASTE: F/P - Red; E Red MEDICATION WASTE Product Size: 4,000 unit Product Waste: unit ceFAZolin 2019-0 No Route: IV, Me moria (ANES) 03-03 Drug form: l 15:24: INJ, ONCE, Stop date: 03/03/20 10:24:00 CDT sugammadex 2019-0 No Route: IV, Phillip emoria (ANES) 03-03 Drug form: l 15:24: SOLN, Vance 00 ONCE, Stop date: 03/03/20 10:24:00 CDT ondansetron 2019-0 No Route: IV, Memoria (ANES) 03-03 Drug form: l 15:23: INJ, ONCE, Kory 00 Stop date: 03/03/20 10:23:00 CDT midazolam 2020-0 No Route: IV, Me moria (ANES) 03-03 Drug form: l 15:23: SOLN, Vance 00 ONCE, Stop date: 03/03/20 10:23:00 CDT lidocaine 2020-0 No Route: IV, Me moria (ANES) 03-03 Drug form: l 15:23: INJ, ONCE, Vance Stop date: 03/03/20 10:23:00 CDT fentaNYL 2020-0 No Route: IV, Mem oria (ANES) 6- Drug form: l 15:23: INJ, ONCE, Stop date: 03/03/20 10:23:00 CDT propofol No Route: IV, Mem oria (ANES) 6- Drug form: l 15:23: INJ, ONCE, Kory 00 Stop date: 03/03/20 10:23:00 CDT rocuronium No Route: IV, M emoria (ANES) 6 Drug form: l 15:23: INJ, ONCE, Stop date: 03/03/20 10:23:00 CDT Fentanyl No Notes: Memoria 6- (Same as: l 15:23: Sublimaze) Preservat shima free. Ascorbic No Notes: Memoria Acid - (Same as: l 14:00: Vitamin C) duloxetine No Notes: Memor ia 6- (Same as: l 14:00: Cymbalta) (Do Not Crush) NIFEdipine No Notes: Memor ia 30 mg oral 03-03 (Same as: l tablet, 14:00: Adalat CC, Herm alda extended Procardia release XL) Give on empty stomach. Take 1 hour before or 2 hours after meal; "Avoid grapefruit and grapefruit juice". Do not crush Ramipril No Notes: Memoria 6-02 (Same l 14:00: as:Altace) Sodium No Route: IV, Memor ia Chloride 6-02 Total l 0.9% IV 13:55: Volume: Vance (ANES) 1000 00 1,000, mL Start date: 03/03/20 8:55:00 CDT, Stop date: 03/03/20 9:55:00 CDT Hydralazine No Notes: Jayy luz Hydrochlori - (Same as: l de 25 MG 13:00: Apresoline Her woodall Oral Tablet 00 ) May interfere w/enteral feedings Take With Food. Thyroxine No Notes: Memori a 6-02 Take 1 l 11:30: hour Vance 00 before or 2 hours after meal; Enteral feeds may interefere with the absorption of this medication . (Same as:Levothr oid, Synthroid) Sodium 2020-0 No 250 mL, Memoria Chloride 03-03 Rate: To l 0.9% 07:11: prime line Vance (titrate) 00 and flush 250 mL remaining blood products., Dosing Weight 57.727, kg, Route: IV, Total Volume: 250, Start Date: 03/03/20 2:11:00 CDT, Duration: 1 day, Stop date: 03/04/20 2:10:00 CDT, Replace Every: 24 hr, 0 sitaGLIPtin 2020-0 Yes 25 mg = 1 M emoria 25 mg oral 6-02 tab, PO, l tablet 06:45: Daily, # Kory 00 30 tab, 0 Refill(s) lactobacill 2020-0 Yes CHEW, Memor ia us 6-02 Daily, 0 l rhamnosus 06:45: Refill(s) Her woodall GG oral 00 tablet, chewable levothyroxi 2020-0 Yes 100 Memori a ne 100 mcg 602 microgram l (0.1 mg) 06:45: = 1 tab, [place] nn oral tablet 00 PO, Daily, # 30 tab, 0 Refill(s) clopidogrel 2020-0 Yes 75 mg = 1 M emoria 75 mg oral 6-02 tab, PO, l tablet 06:45: Daily, # Kory 00 30 tab, 0 Refill(s) Hydralazine 2020-0 Yes 25 mg = 1 M emoria Hydrochlori 6-02 tab, PO, l de 25 MG 06:45: TID, # 270 Her woodall Oral Tablet 00 tab, 1 Refill(s) Mirtazapine 2020-0 Yes 7.5 mg = 1 Memoria 7.5 MG Oral 6-02 tab, PO, l Tablet 06:45: Bedtime, # Shea nn 00 30 tab, 0 Refill(s) ramipril 10 2020-0 Yes 10 mg = 1 M emoria mg oral 6-02 cap, PO, l capsule 06:45: Daily, # Trav n 00 30 cap, 0 Refill(s) Ondansetron 2020-0 Yes 4 mg = 1 Me moria 4 MG Oral 6-02 tab, PO, l Tablet 06:45: Q6H, PRN Vance [Zofran] 00 Nausea/Vom iting, # 30 tab, 0 Refill(s) Santyl 2020-0 Yes TOP, Memoria 6-02 Daily, 0 l 06:45: Refill(s) Kory 00 loperamide 2020-0 Yes 2 mg = 1 Mem oria 2 mg oral 6-02 cap, PO, l capsule 06:45: Q4H, PRN Trav n 00 loose stools, # 60 cap, 0 Refill(s) ascorbic 2020-0 Yes 500 mg = 1 Mem oria acid 500 mg 6-02 tab, PO, l oral tablet 06:45: Daily, # He rmann 00 30 tab, 0 Refill(s) DULoxetine 2020-0 Yes 30 mg = 1 Me moria 30 mg oral 6-02 cap, PO, l delayed 06:41: Daily, # Trav n release 00 30 cap, 0 capsule Refill(s) NIFEdipine 2020-0 Yes 30 mg = 1 Me moria 30 mg oral 6-02 tab, PO, l tablet, 06:41: Daily, # Trav n extended 00 30 tab, 0 release Refill(s) 168 HR 2020-0 Yes 1 patch, Memoria Clonidine 6-02 TOP, QWed, l 0.98162 06:41: # 4 patch, Herm alda MG/HR 00 0 Transdermal Refill(s) Patch atorvastati 2019-0 Yes 10 mg = 1 M emoria n 10 mg 6-02 tab, PO, l oral tablet 06:41: Bedtime, # Vance 00 30 tab, 0 Refill(s) Acetaminoph 2020-0 Yes 2 tab, PO, Memoria en 300 MG / 02 Q6H, PRN l Codeine 06:41: Pain, # 56 Herm alda Phosphate 00 tab, 0 30 MG Oral Refill(s) Tablet [Tylenol with Codeine #3] Dextrose 2020-0 No 12.5 gm, Memor ia 50% Syringe 03-03 25 mL, l (D50W) 05:27: Route: Kory 00 IVP, Drug Form: INJ, Dosing Weight 57.727, kg, PRN, PRN Blood Glucose Results, Start date: 03/03/20 0:27:00 CDT, Duration: 30 day, Stop date: 04/02/20 0:26:00 CDT, 0 Glucagon 2019-0 No 1 mg, Memoria 03-03 Route: IM, l 05:27: Drug form: Kory 00 PDR/INJ, PRN, Dosing Weight 57.727, kg, PRN Blood Glucose Results, Start date: 03/03/20 0:27:00 CDT, Duration: 30 day, Stop date: 04/02/20 0:26:00 CDT, 0 Insulin No Notes: Memoria Lispro 03-03 (Same as: l 05:27: Humalog) Vance 00 Roll in palms of hands gently; Do not shake vigorously . WASTE: F/P - Black; E - Municipal Trash Bin Stable for 28 days at room temperatur e. Expires in days from ____Date Morphine No Notes: Memoria 03-03 (Same l 05:24: as:MORPhin Kory 00 e Sulfate) Omnipaque No Notes: Memori a 350 03-03 (Same l injectable 05:00: as:Omnipaq H ermann solution 00 ue 350) WASTE: F/P - Black; E - Municipal Trash Bin Acetaminoph No Notes: Do M emoria en 300 MG / 03-03 not exceed l Codeine 04:20: 4gm/day of Herm acetaminop 30 MG Oral hen. Tablet (Same as: [Tylenol Tylenol with with Codeine #3] Codeine # 3) Dextrose No 12.5 gm, Memor ia 50% Syringe 03-03 25 mL, l (D50W) 03:14: Route: Vance IVP, Drug Form: INJ, Dosing Weight 57.727, kg, PRN, PRN Blood Glucose Results, Start date: 03/02/20 22:14:00 CDT, Duration: 30 day, Stop date: 04/01/20 22:13:00 CDT, 0 Glucagon 2019-0 No 1 mg, Memoria 03-03 Route: IM, l 03:14: Drug form: Vance PDR/INJ, PRN, Dosing Weight 57.727, kg, PRN Blood Glucose Results, Start date: 03/02/20 22:14:00 CDT, Duration: 30 day, Stop date: 04/01/20 22:13:00 CDT, 0 Acetaminoph 2020-0 No Notes: Do Phillip downey en 03-03 not exceed l 03:14: 4 gm/day. Kory 00 (Same as: Tylenol) ascorbic 2020-0 Yes Take 500 Memor ia acid, 5-14 mg by l vitamin C, 07:08: mouth. Shea nn 500 mg 06 tablet calcium 2020-0 Yes Take 667 Memori a acetate 667 5-14 mg by l mg capsule 07:08: mouth. Shea nn 06 cilostazoL 2020-0 Yes Take 100 Mem oria 100 mg 5-14 mg by l tablet 07:08: mouth. Kory clopidogreL 2019-0 Yes Take 75 mg Memoria 75 mg 5-14 by mouth. l tablet 07:08: Kory diphenoxyla 2019-0 Yes Take 2 Jayy luz te-atropine 5-14 tablets by l 2.5-0.025 07:08: mouth. Trav n mg per 06 tablet potassium 2019-0 Yes Take 20 Memor ia chloride 20 5-14 mEq by l mEq packet 07:08: mouth. Shea nn 06 rosuvastati 2020-0 Yes Take 10 mg Memoria n 10 mg 5-14 by mouth. l tablet 07:08: Kory traMADol 50 2019-0 Yes Take 50 mg Memoria mg tablet 5-14 by mouth. l 07:08: Kory clonIDINE 2018- 2020- No .1mg Q7D Place 1 [place] (CATAPRES-T 05-20 08-18 patch (0.1 M ethodi TS) 0.1 00:00: 23:59 mg total) st mg/24 hr 00 :00 on the skin once a week. pantoprazol 2019- Yes 40mg QD Take 1 [place] 8-14 tablet (40 [facility] (PROTONIX) 00:00: mg total) st 40 MG EC 00 by mouth tablet daily. levothyroxi 2019- 2019- No 100ug QD Take 1 [place] 8 09-13 tablet [facility] (SYNTHROID, 00:00: 23:59 (100 mcg s t LEVOXYL) 00 :00 total) by 100 mcg mouth tablet every morning for 30 days. aspirin 2018- No 81mg QD Take 1 Thony (ECOTRIN) 05-15 tablet (81 Met hodi 81 MG 00:00: 23:59 mg total) st enteric 00 :00 by mouth coated daily for tablet 30 days. L. 2018- No 2{capsu QD Take 2 Bhandari acidophilus 05-15 le} capsules Met hodi ,casei,rham 00:00: 23:59 by mouth s t nosus (BIO 00 :00 daily for K PLUS) 50 30 days. billion cell capsule,del ayed release(DR/ EC) capsule SITagliptin 2018- No 25mg QD Take 1 [place] (JANUVIA) 05-15 tablet (25 Met hodi 25 MG 00:00: 23:59 mg total) st tablet 00 :00 by mouth daily with breakfast for 30 days. cefpodoxime 2018- No 200mg [id number] Take 1 Thony (VANTIN) 05-15 [id number] tablet Me thodi 200 MG 00:00: 23:59 3W ([address] tablet 00 :00 total) by mouth 3 (three) times a week for 5 days. docusate 2018-2018- No 100mg Take 100 [place] sodium 05-14 mg by Method[facility] (COLACE) 14:18: 00:[address] 100 MG 10 :00 daily. capsule levothyroxi 2018- No 75ug QD Take 75 [place] 05-14- mcg by Method[facility] (SYNTHROID, 14:18: 00:[address] LEVOXYL) 75 10 :00 every mcg tablet morning. acyclovir 2018- 2019- No 800mg [id number] Take 800 Bhandari (ZOVIRAX) 05-14 [id number] mg by Me thodi 800 MG 14:18: 00:[address] tablet 10 :00 (three) times a day. acetaminoph 2018- No 1{tbl} Q6H Take 1 [place] en-codeine 05-14 tablet by Met garret[facility] (TYLENOL 14:18: 00:[address] WITH 10 :00 every 6 CODEINE #3) (six) 300-30 mg hours as per tablet needed for moderate pain. loperamide 2018- No 2mg Take 2 mg [place] (IMODIUM) 2 05-14 by mouth Met hodi mg capsule 14:18: 00:00 as needed s t 10 :00 for diarrhea. Prn q 6hrs for diarrhea enoxaparin 2018- No 30mg Inject 30 [place] (LOVENOX) 05-14 mg under Metho di 30 mg/0.3 14:18: 00:[address] mL syringe 10 :00 daily. Daily at 0900 collagenase 2019- No QD Apply [place] (SANTYL) 05-14 topically Metho di ointment 14:18: 00:[address] 10 :00 Apply to R Lateral lower leg chlorhexidi 2018- No Apply [place] ne 05-14 topically [facility] gluconate 2 14:18: 00:[address] % liquid 10 :00 Apply to R lateral lower leg wound.clen se with chlorhexid ine . senna Yes 2{tbl} QD Take 2 Bhandari (SENOKOT) 8-13 tablets by Meth robert 8.6 mg 14:18: mouth st tablet 06 nightly. multivitami Yes 1{tbl} Q.5D Take 1 [place] with 8-13 tablet by Methodi minerals 14:18: mouth 2 st tablet 06 (two) times a day. alum-mag Yes 20mL Q.25D Take 20 mL [place] hydroxide-s 8-13 by mouth 4 Me thodi imeth 14:18: (four) st (MAALOX 06 times a PLUS) day as 200-200-20 needed for mg/5 mL indigestio suspension n or heartburn. acyclovir 2018- No 200mg Q.5D Take 1 [place] (ZOVIRAX) 05-14 capsule Method i 200 MG 00:00: 23:59 ([address] capsule 00 :00 total) by mouth 2 (two) times a day for 30 days. acetaminoph 2018- No 650mg Q6H Take 2 [place] en -06-13 tablets Methodi (TYLENOL) 00:00: 23:59 ([address] 325 MG 00 :00 total) by tablet mouth every 6 (six) hours as needed for mild pain or fever for up to 30 days. atorvastati 2019- No 10mg QD Take 1 [place] st[place] n (LIPITOR) 05-14 09-12 tablet (10 M ethodi 10 MG 00:00: 23:59 mg total) st tablet 00 :00 by mouth nightly for 30 days. acetaminoph 2019- No 1{tbl} Q6H Take 1 [place] en-codeine 05-14 08-20 tablet by Met moscoso (TYLENOL 00:00: 23:[address] WITH 00 :00 every 6 CODEINE #3) (six) 300-30 mg hours as per tablet needed for moderate pain for up to 7 days. calcium 2017-10 Yes 667mg Take [facility]-11 [facility] by [facility] - (PHOSLO) 22:57: mouth 3 Medica l 667 mg 44 (three) Center capsule times daily with meals. ascorbic 2017-10 Yes 500mg QD Take [address] acid, 1-11 mg by [facility] - vitamin C, 22:57: mouth Medica l (ASCORBIC 44 daily. Center ACID WITH MAGGY HIPS) 500 MG tablet rosuvastati 2017-10 Yes 10mg QD Take [address] n (CRESTOR) 1-11 by mouth Luke s - 10 MG 22:57: daily. Medical tablet 44 Center diphenoxyla 2017-10 Yes diarrhea 2{tbl} Take [address] te-atropine 1-11 tablets by Leela kes - (LOMOTIL) 22:57: mouth 3 Medic al 2.5-0.025 44 (three) Center mg per times tablet daily as needed for Diarrhea. traMADol 2017-10 Yes 50mg Take [address] (ULTRAM) 50 1-11 by mouth Luke s - mg tablet 22:57: as needed Med ical 44 for Pain. Center cilostazol 2017-10 Yes 100mg Q.5D Take [address] (PLETAL) 1-11 mg by [facility] - 100 MG 22:57: mouth 2 Medical tablet 43 (two) Center times daily. potassium 2017-10 Yes 20meq Q.5D Take [address] chloride 1-11 mEq by [facility] - (KLOR-CON) 22:57: mouth 2 Medi amber 20 mEq 43 (two) Center packet times daily. clopidogrel 2017-10 Yes 75mg QD Take [address] (PLAVIX) 75 1-11 by mouth Luke s - mg tablet 22:57: daily. Medica l 43 Center Acetaminoph No 15 ml, Jayy luz en 21.7 01-30 Route: PO, l MG/ML / 20:25: Drug Form: Herm alda Hydrocodone 00 SOLN, Bitartrate Dosing 0.5 MG/ML Weight Oral 66.364, Solution kg, ONCE, PRN Pain Score 4-6, Start date: 01/30/17 15:25:00 CDT Insulin, No Notes: Memoria Aspart, 01-30 Roll in l Human 18:56: palms of Kory 00 hands gently; Do not shake vigorously . (Same as: NovoLOG) "single patient use only" WASTE: F/P - Black; E - Municipal Trash Bin Stable for 28 days at room temperatur e. Expires in days from ____Date Sodium No 1,000 mL, Memori a Chloride 01-30 Rate: 125 l 0.154 18:56: ml/hr, Vance MEQ/ML 00 Infuse Injectable over: 8 Solution hr, Route: IV, Dosing Weight 66.364 kg, Total Volume: 1,000, Start date: 01/30/17 13:56:00 CDT, Duration: 30 day, Stop date: 03/01/17 13:55:00 CDT Morphine No Notes: Memoria 01-30 (Same l 18:56: as:MORPhin Kory 00 e Sulfate) Acetaminoph No Notes: Max Memoria en 01-30 acetaminop l 18:56: hen 4000 Kory 00 mg/day (4 gm/day). (Same as: Tylenol Extra Strength) Fentanyl No Notes: Memoria 01-30 (Same as: l 18:56: Sublimaze) Vance 00 Preservat shima free. Ondansetron No Notes: Jayy luz 01-30 (Same as: l 18:56: Zofran) Kory 00 MEDICATION WASTE Product Size: 4 mg Product Wasted: ___ mg Flumazenil No Notes: Memor ia 01-30 (Same as: l 18:56: Romazicon) Naloxone No Notes: Memoria 01-30 Same as l 18:56: Narcan ePHEDrine No Route: IV, Me moria (ANES) 01-30 Drug form: l 18:41: INJ, ONCE, Stop date: 01/30/17 13:41:00 CDT metoclopram No Route: IV, Memoria joss (ANES) 01-30 Drug form: l 18:16: INJ, ONCE, Stop date: 01/30/17 13:16:00 CDT ondansetron No Route: IV, Memoria (ANES) 01-30 Drug form: l 18:16: INJ, ONCE, Stop date: 01/30/17 13:16:00 CDT propofol No Route: IV, Mem oria (ANES) 01-30 Drug form: l 18:11: INJ, ONCE, Stop date: 01/30/17 13:11:00 CDT lidocaine No Route: IV, Me moria (ANES) 01-30 Drug form: l 18:06: INJ, ONCE, Stop date: 01/30/17 13:06:00 CDT phenylephri No Route: IV, Memoria ne (ANES) 01-30 Drug form: l 18:06: INJ, ONCE, Stop date: 01/30/17 13:06:00 CDT midazolam No Route: IV, Me moria (ANES) 01-30 Drug form: l 18:06: SOLN, 00 ONCE, Stop date: 01/30/17 13:06:00 CDT Unknown Yes Refill(s) Memor ia Home 01-30 0 l Medication 17:34: Aspirin Yes 81 mg, PO, Jayy luz 01-30 0 l 17:31: Refill(s) metoprolol Yes 50 mg = 1 Me moria tartrate 50 01-30 tab, PO, l mg oral 17:31: BID, 0 Vance tablet 00 Refill(s) meropenem Yes 500 mg, Memor ia 500 mg 01-30 IV, Q12H l intravenous 17:30: Trav n injection 00 propofol No Route: IV, Mem oria (ANES) 01-30 Drug form: l (ANES) 17:29: INJ, Start Shea nn 00 date: 01/30/17 12:29:00 CDT, Stop date: 01/30/17 13:29:00 CDT vancomycin Yes IV, Q48H, Me moria 750 mg 5 0 l intravenous 17:29: Refill(s) H ermann injection sodium No Route: IV, Memor ia chloride 01-30 Total l 0.9% 500 ml 17:20: Volume: Her woodall INJ (ANES) 00 500, Start date: 01/30/17 12:20:00 CDT, Stop date: 01/30/17 13:20:00 CDT Lomotil Lomotil Yes [facility] not [facility] clopidogrel clopidogrel Yes [facility] not [facility] VitaMelts VitaMelts Yes [facility] not [facility] Vitamin D Vitamin D [place] defined [facility] acetaminoph acetaminoph No acetaminop [place] en 300 en 300 hen 300 da mg-codeine mg-codeine mg-codeine Medical 30 mg 30 mg 30 mg Group tablet tablet tablet Pepcid Pepcid Yes [facility] not [facility] calcium calcium No calcium [place] acetate 667 acetate 667 acetate da mg capsule mg capsule 667 mg M edical capsule Group Bactroban Bactroban Yes [facility] not [facility] cephalexin cephalexin No cephalexin [place] 250 mg 250 mg 250 mg da capsule capsule capsule Medica l Group Pletal Pletal Yes [facility] not [facility] cilostazol cilostazol No cilostazol [place] 100 mg 100 mg 100 mg da tablet tablet tablet Medical Group Plavix Plavix Yes [facility] not [facility] defined [facility] clopidogrel clopidogrel No clopidogre [place] 75 mg 75 mg l 75 mg da tablet tablet tablet Medical Group Klor-Con Klor-Con Yes [place] not [facility] S t M20 M20 [place] defined [facility] diphenoxyla diphenoxyla No diphenoxyl [place] te-atropine te-atropine ate-atropi da 2.5 2.5 ne 2.5 Medical mg-0.025 mg mg-0.025 mg mg-0.025 Group tablet tablet mg tablet Crestor Crestor Yes [facility] not [facility] defined [facility] Klor-Con Klor-Con No Klor-Con [place] M20 mEq M20 mEq M20 mEq da tablet,exte tablet,exte tablet,ext Medical nded nded ended Group release release release levothyroxi levothyroxi No levothyrox [place] ne 25 mcg ne 25 mcg ine 25 mcg da tablet tablet tablet Medical Group minocycline minocycline No minocyclin [place] 100 mg 100 mg e 100 mg da capsule capsule capsule Medica l Group rosuvastati rosuvastati No rosuvastat [place] n 10 mg n 10 mg in 10 mg da tablet tablet tablet Medical Group sulfamethox sulfamethox No sulfametho [place] azole 800 azole 800 xazole 800 da mg-trimetho mg-trimetho mg-trimeth Medical prim 160 mg prim 160 mg oprim 160 Group tablet tablet mg tablet tramadol 50 tramadol 50 No tramadol [place] mg tablet mg tablet 50 mg da tablet Medical Group warfarin warfarin No warfarin [place] 2.5 mg 2.5 mg 2.5 mg da tablet tablet tablet Medical Group Vital Signs Vital Name Observation Time Observation Value Comments Source BP Diastolic 2019-02-21 00:00:00 62 mm[Hg] [facility] Height 2019-02-21 00:00:00 64 [in_i] [facility] BMI (Body Mass 2019-02-21 00:00:00 31.1 kg/m2 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) Group BP Systolic 2019-02-21 00:00:00 110 mm[Hg] [facility] Body Weight 2019-02-21 00:00:00 181 [lb_av] [facility] Systolic (mm Hg) 2020-03-19 20:24:00 Jayy rial Kory Diastolic (mm Hg) 2020-03-19 20:24:00 Mem orial Kory Respitory Rate 2020-03-19 16:40:00 Memori al Kory Systolic (mm Hg) 2020-03-19 16:40:00 Jayy rial Kory Diastolic (mm Hg) 2020-03-19 16:40:00 Mem orial Vance Respitory Rate 2020-03-19 16:35:00 Memori al [place] Systolic (mm Hg) 2020-03-19 16:35:00 Jayy rial Kory Diastolic (mm Hg) 2020-03-19 16:35:00 Mem orial Vance Temperature Oral (F) 2020-03-19 16:35:00 97.8 F [facility] Respitory Rate 2020-03-19 16:30:00 Memori al Vance Temperature Oral (F) 2020-03-19 12:45:00 98.0 F [facility] Temperature Oral (F) 2020-03-19 12:24:00 97.8 F [facility] Heart Rate 2020-03-19 12:24:00 [facility] Heart Rate 2020-03-19 09:00:00 [facility] Heart Rate 2020-03-19 05:00:00 [facility] Height 2020-03-03 01:59:00 162.56 cm [facility] Weight 2020-03-03 01:59:00 [facility] BMI Calculated 2020-03-03 01:59:00 Memori al Kory Height 2020-02-12 19:43:00 162.6 cm [facility] Weight 2020-02-12 19:43:00 [facility] Systolic blood 2019-05-14 11:47:15 144 mm[Hg] Juliano n Protestant pressure Diastolic blood 2019-05-14 11:47:15 67 mm[Hg] Estevan on Protestant pressure Heart rate 2019-05-14 11:47:15 80 /min Bhandari [facility] Body temperature 2019-05-14 11:47:15 36.33 Pallavi [place] [facility] Respiratory rate 2019-05-14 11:47:15 17 /min [place] [facility] Oxygen saturation in 2019-05-14 11:47:15 97 /min Thony Grant Arterial blood by Pulse oximetry Body weight 2019-05-14 04:10:32 72.712 kg Thony Grant Systolic (mm Hg) 2017-01-30 20:45:00 Jayy rial Kory Diastolic (mm Hg) 2017-01-30 20:45:00 Mem orial Kory Systolic (mm Hg) 2017-01-30 20:30:00 Jayy rial Vance Diastolic (mm Hg) 2017-01-30 20:30:00 Mem orial Kory Respitory Rate 2017-01-30 19:30:00 Memori al Vance Systolic (mm Hg) 2017-01-30 19:30:00 Jayy rial Vance Diastolic (mm Hg) 2017-01-30 19:30:00 Mem orial Kory Respitory Rate 2017-01-30 19:15:00 Memori al Kory Respitory Rate 2017-01-30 19:00:00 Memori al Kory Heart Rate 2017-01-30 17:00:00 [facility] Temperature Oral (F) 2017-01-30 17:00:00 97.6 F [facility] BMI Calculated 2017-01-27 22:26:00 Memori al Kory Height 2017-01-27 22:26:00 162.56 cm [facility] Weight 2017-01-27 22:26:00 [facility] Procedures Procedure Date / Time Performing Clinician Source Performed XR WRIST <3 VW RIGHT 2020-02-13 00:42:48 Elvis Garrido iajacqui Kory EXTERNAL PROVIDER RECORDS 2020-01-01 10:01:00 Doctor Unassigned, No [facility] Name BASIC METABOLIC PANEL 2019-05-14 05:30:00 Mando Suárez [facility] HC COMPLETE BLD COUNT 2019-05-14 05:30:00 Mando Suárez Protestant W/AUTO DIFF ESTIMATED GFR 2019-05-14 05:30:00 Mando Suárez Meth odist POC GLUCOSE 2019-05-13 12:35:00 Anthony Rice Ca thodist BASIC METABOLIC PANEL 2019-05-13 05:20:00 Mando Suárez [facility] HC COMPLETE BLD COUNT 2019-05-13 05:20:00 Mando Suárez Protestant W/AUTO DIFF ESTIMATED GFR 2019-05-13 05:20:00 KaminiMando Meth odist POC GLUCOSE 2019-05-12 20:56:00 DwayneAnthony song Me thodist POC GLUCOSE 2019-05-12 17:01:00 Anthony Rice Me thodist HEMODIALYSIS 2019-05-12 11:25:36 Betty Daley Ca thodist BASIC METABOLIC PANEL 2019-05-12 05:10:00 Mando Suárez [facility] HC COMPLETE BLD COUNT 2019-05-12 05:10:00 Mando Suárez Protestant W/AUTO DIFF ESTIMATED GFR 2019-05-12 05:10:00 Mando Suárez Meth odist HC COMPLETE BLD COUNT 2019-05-11 04:40:00 Mando Suárez Protestant W/AUTO DIFF BASIC METABOLIC PANEL 2019-05-11 04:40:00 Mando Suárez Protestant ESTIMATED GFR 2019-05-11 04:40:00 Mando Suárez Meth odist POC GLUCOSE 2019-05-10 18:16:00 DwayneAnthony song Ca thodist HEMODIALYSIS 2019-05-10 09:39:48 CeeArcadio lindo Meth odist POC GLUCOSE 2019-05-10 07:54:00 DwayneAnthony song Ca thodist HC COMPLETE BLD COUNT 2019-05-10 04:40:00 Mando Suárez Protestant W/AUTO DIFF BASIC METABOLIC PANEL 2019-05-10 04:40:00 Mando Suárez Protestant ESTIMATED GFR 2019-05-10 04:40:00 Mando Suárez Meth odist POC GLUCOSE 2019-05-10 00:24:00 DwayneAnthony song Ca thodist POC GLUCOSE 2019-05-09 16:22:00 DwayneAnthony song Ca thodist AMMONIA LEVEL 2019-05-09 12:00:00 Mando Suárez Meth odist POC GLUCOSE 2019-05-09 11:35:00 DwayneAnthony song Me thodist POC GLUCOSE 2019-05-09 06:48:00 DwayneAnthony song Ca thodist HC COMPLETE BLD COUNT 2019-05-09 04:45:00 Mando Suárez Protestant W/AUTO DIFF BASIC METABOLIC PANEL 2019-05-09 04:45:00 Mando Suárez PROTHROMBIN TIME WITH INR 2019-05-09 04:45:00 Kadie Orozco Thony Protestant ESTIMATED GFR 2019-05-09 04:45:00 Mando Suárez Meth odist POC GLUCOSE 2019-05-09 00:32:00 DwayneAnthony song Me thodist POC GLUCOSE 2019-05-08 18:14:00 DwayneAnthony song Me thodist POC GLUCOSE 2019-05-08 13:57:00 DwayneAnthony song Me thodist HC COMPLETE BLD COUNT 2019-05-08 08:28:00 Mando Suárez W/AUTO DIFF BASIC METABOLIC PANEL 2019-05-08 08:28:00 Mando Suárez PROTHROMBIN TIME WITH INR 2019-05-08 08:28:00 Mando Suárezrajesh Protestant ESTIMATED GFR 2019-05-08 08:28:00 Mando Suárez Meth odist POC GLUCOSE 2019-05-08 06:38:00 DwayneAnthony song Me thodist POC GLUCOSE 2019-05-08 06:37:00 DwayneAnthony song Me thodist POC GLUCOSE 2019-05-07 23:57:00 DwayneAnthony song Me thodist POC GLUCOSE 2019-05-07 16:28:00 DwayneAnthony song Me thodist EEG AWAKE/ASLEEP LESS THAN 2019-05-07 16:09:09 Mason Claire Protestant 41 MIN POC GLUCOSE 2019-05-07 12:10:[address] HEAD WO CONTRAST 2019-05-07 11:12:15 Mando Suárezist HEMODIALYSIS 2019-05-07 09:56:59 VelBetty crooks Thony Me thodist HC COMPLETE BLD COUNT 2019-05-07 05:00:00 Mando Suárez W/AUTO DIFF BASIC METABOLIC PANEL 2019-05-07 05:00:00 Mando Suárez Protestant ESTIMATED GFR 2019-05-07 05:00:00 Mando Suárez Meth odist POC GLUCOSE 2019-05-06 16:14:00 Anthony Rice Me thodist NH AN ELECTIVE 2019-05-06 15:22:42 Thalia Steele Protestant SUPRAGLOTTIC AIRWAY POC GLUCOSE 2019-05-06 14:56:00 Anthony Rice Me thodist BASIC METABOLIC PANEL 2019-05-06 11:55:00 Rey Judd Protestant ESTIMATED GFR 2019-05-06 11:55:00 Rey Judd Me thodist ECG 12-LEAD 2019-05-06 11:51:20 Mando Suárez Bhandari Meth odist BLOOD CULTURE, AEROBIC & 2019-05-06 08:19:00 Anthony Rice jaclyn Protestant ANAEROBIC HEMODIALYSIS 2019-05-06 06:47:17 Betty Daley Me thodist BASIC METABOLIC PANEL 2019-05-06 04:50:00 Jessica Cosme on Protestant Marta HC COMPLETE BLD COUNT 2019-05-06 04:50:00 Jessica Cosme on Protestant W/AUTO DIFF Marta ESTIMATED GFR 2019-05-06 04:50:00 Anthony Rice Ca thodist POC GLUCOSE 2019-05-05 17:17:00 Anthony Rice Ca thodist POC GLUCOSE 2019-05-05 11:38:00 Anthony Rice Me thodist POC GLUCOSE 2019-05-05 08:38:00 Anthony Rice Me thodist POC GLUCOSE 2019-05-05 05:28:00 DwayneAnthony song Ca thodist BASIC METABOLIC PANEL 2019-05-05 05:20:00 MattazoJessica on Protestant Marta HC COMPLETE BLD COUNT 2019-05-05 05:20:00 Jessica Cosme on Protestant W/AUTO DIFF Marta HEMOGLOBIN A1C 2019-05-05 05:20:00 Mara Orozco Protestant ESTIMATED GFR 2019-05-05 05:20:00 Mara Orozco Protestant POC GLUCOSE 2019-05-04 22:08:00 DwayneAnthony song Me thodist POC GLUCOSE 2019-05-04 17:06:00 DwayneAnthony song Me thodist POC GLUCOSE 2019-05-04 13:04:00 DwayneAnthony song Me thodist POC GLUCOSE 2019-05-04 09:32:00 DwayneAnthony song Me thodist EEG AWAKE/DROWSY LESS THAN 2019-05-04 09:12:17 Mason Claire Protestant 41 MIN BASIC METABOLIC PANEL 2019-05-04 06:10:00 ElevJessica zambrano on Protestant Marta HC COMPLETE BLD COUNT 2019-05-04 06:10:00 Jessica Cosme on Protestant W/AUTO DIFF Marta ESTIMATED GFR 2019-05-04 06:10:00 DwayneAnthony song Ca thodist POC GLUCOSE 2019-05-04 05:22:00 DwayneAnthony song Me thodist MRI BRAIN WO CONTRAST 2019-05-04 02:47:40 Mason Claire n Protestant POC GLUCOSE 2019-05-04 02:04:00 DwayneAnthony song Me thodist POC GLUCOSE 2019-05-04 00:50:00 DwayneAnthony song Me thodist POC GLUCOSE 2019-05-03 21:54:00 DwayneAnthony song Ca thodist POC GLUCOSE 2019-05-03 17:00:00 DwayneAnthony song Ca thodist VITAMIN B12 LEVEL 2019-05-03 16:47:00 Mason Claire Ca thodist SYPHILIS TOTAL ANTIBODY 2019-05-03 16:47:[address] HEAD WO CONTRAST 2019-05-03 14:39:10 Jessica Cosme Protestant Marta POC GLUCOSE 2019-05-03 11:56:00 DwayneAnthony song Me thodist AMMONIA LEVEL 2019-05-03 10:30:00 Betty Daley Me thodist HEPATITIS B SURFACE AB, 2019-05-03 10:30:00 Betty Daley QUANTITATIVE HEPATITIS B SURFACE 2019-05-03 10:30:00 Betty Daley ANTIGEN CONSULT TO OSTOMY CARE 2019-05-03 08:48:52 Estevan Gee on Protestant NURSE [facility] HEMODIALYSIS 2019-05-03 07:48:24 Betty Daley Me thodist POC GLUCOSE 2019-05-03 07:33:00 Anthony Rice Me thodist LACTIC ACID LEVEL, SEPSIS 2019-05-03 06:00:00 Nena Reyes - NOW AND REPEAT 2X [...] BASIC METABOLIC PANEL 2019-05-02 23:45:00 Nena Reyes [facility] ESTIMATED GFR 2019-05-02 23:45:00 Nena Reyes Me thodist Cholecystectomy [facility] Plan of Care Planned Activity Planned Date Details Comments Source Future Scheduled 2020-06-02 Plan of Care [code = Mem [facility] Test 00:00:00 99815-9] Future Scheduled 2020-05-02 INFLUENZA VACCINE Juliano cooper [facility] Test 00:00:00 [code = INFLUENZA VACCINE] Future Scheduled 2020-01-01 Plan of Care [code = Mem [facility] Test 14:28:31 97016-5] Future Scheduled 2019-12-30 Plan of Care [code = Mem [facility] Test 19:28:35 35103-9] Future Scheduled 2019-12-23 Plan of Care [code = Mem orial [facility] Test 15:49:21 04843-3] Future Scheduled 2019-06-02 Plan of Care [code = Mem orial Kory Test 00:00:00 50612-7] Future Scheduled 2019-04-30 Plan of Care [code = Mem orial Vance Test 19:30:55 48916-7] Future Scheduled 2018 65+ PNEUMOCOCCAL Bhandari Protestant Test 00:00:00 VACCINE (1 of 2 - PCV13) [code = 65+ PNEUMOCOCCAL VACCINE (1 of 2 - PCV13)] Future Scheduled 2018 Plan of Care [code = Mem orial V[facility] Test 00:00:00 64939-3] Future Scheduled 2018 Medicare Annual [facility] Test 00:00:00 Wellness Visit (procedure) [code = 161683167964921] Future Scheduled 2003-12-18 COLONOSCOPY SCREENING Ho jossue Protestant Test 00:00:00 [code = COLONOSCOPY SCREENING] Future Scheduled 2003-12-18 SHINGLES VACCINES (#1) H jaclyn Protestant Test 00:00:00 [code = SHINGLES VACCINES (#1)] Future Scheduled 2003-12-18 Plan of Care [code = Mem orial V[facility] Test 00:00:00 62635-6] Future Scheduled 2003-12-18 Screening for Memorial H ermann Test 00:00:00 malignant neoplasm of colon (procedure) [code = 549842800] Future Scheduled 1972 Plan of Care [code = Mem orial [facility] Test 00:00:00 86994-9] Future Scheduled 1964 Plan of Care [code = Mem orial Kory Test 00:00:00 74651-8] Future Scheduled 1963-12-18 DIABETIC FOOT EXAM [place] on Protestant Test 00:00:00 [code = DIABETIC FOOT EXAM] Future Scheduled 1963-12-18 URINE MICROALBUMIN [place] [facility] Test 00:00:00 [code = URINE MICROALBUMIN] Future Scheduled 1953 DIABETIC RETINAL EYE Calixto ston Protestant Test 00:00:00 EXAM [code = DIABETIC RETINAL EYE EXAM] Future Scheduled 1955 Plan of Care [code = Mem [facility]rial [facility] Test 00:00:00 96214-2] Future Scheduled 1955 Hepatitis C screening Me morial Vance Test 00:00:00 (procedure) [code = 469237047] Encounters Start End Encounter Admission Attending Care Care Encounter Source Date/Time Date/Time Type Type Clinicians Facility Department ID 2020-03-02 Inpatient [facility] [id number] 20:34:00 [facility] 2020-03-02 2020-03-19 Outpatient Robinson, SE [facility] [id number] 20:34:00 15:09:00 Leo Rosenthal [facility] 2020-02-12 2020-02-12 [facility] [id number] 14:42:00 23:59:00 Encounter [facility] [id number] Surgical [id number] Specialti [id number] es 809 Dorena 2020-02-12 2020-02-12 [facility] [id number] 14:42:00 23:59:00 Encounter [facility] [id number] Surgical 4.2.7.2.686 Specialti [id number] es 809 Dorena 2020-02-12 2020-02-12 [facility] [id number] 14:41:07 14:59:15 Visit [facility] [id number] Surgical [id number] Specialti [id number] es 198 Dorena 2020-02-12 2020-02-12 [facility] [id number] 14:41:07 14:59:15 Visit Elvis Patrick [id number] Surgical [id number] Specialti [id number] es 198 Dorena 2020-02-12 2020-02-12 Office Hema NDBO [id number] 14:41:07 14:59:15 Visit Elvis Patrick [id number] Surgical 4.2.7.2.686 Specialti [id number] es 198 Dorena 2020-01-01 2020-01-01 Orders Doctor ABBY [id number] 00:00:00 00:00:00 Only Unassigned, ROD [id number] [facility] 4.2.7.2.686 [id number] 2019-12-30 2019-12-30 Office Hema [facility] [id number] 13:55:31 14:28:35 Visit Elvis Farnsworth [facility] [id number] Surgical [id number] Specialti [id number] es 198 Dorena 2019-12-30 2019-12-30 Office Hema [facility] [id number] 13:55:31 14:28:35 Visit Elvis Patrick [id number] Surgical 4.2.7.2.686 Specialti [id number] es 198 D[place]na 2019-12-23 2019-12-23 Telephone Hema [facility] [id number] 00:00:00 00:00:00 Elvis Farnsworth [facility] [id number] Surgical 4.2.7.2.686 Specialti [id number] es 198 Dorena 2019-10-11 2019-10-11 Outpatient Winifred KNOTT [facility] [place] [id number] [place] 10:42:00 23:59:00 BR[facility] 2019-04-26 2019-04-26 Telephone Vishal [facility] [id number] 00:00:00 00:00:00 Connie Higginbotham [id number] [place] 4.2.7.2.686 [facility] [id number] [address] 2019-02-21 2019-02-21 Rolan [facility] [place] - [id number] M eran 00:00:00 00:00:00 Clyde Darby MD: Medical Medica [address], General [address], [place] [address] , Ph. [phone] 2019-02-14 2019-02-14 Outpatient Dwayne, [id number] 11:31:47 23:59:59 Fabrice 8 2019-01-10 2019-01-10 [facility] [id number] [address] 13[facility]03:00 13:03:00 [facility] 2019-01-09 2019-01-09 [facility] [id number] 15:00:00 15:00:00 [facility] 2018 [address] [id number] [facility] [address] 10[facility]09:00 10:09:00 [facility] 2018 2018 [facility] [id number] [facility] 10:00:00 10:00:00 [facility] 2018-12-11 2018-12-11 [facility] [id number] [facility] [address] 14:30:00 14:30:00 [facility] 2017-01-30 2017-01-30 Outpatient [facility] [id number] 11:35:00 16:25:00 Rodolfo Fox Results Test Description Test Time Test Comments Results Result Comments Source ANEMIA STUDY 2020-03-19 89 [facility] 09:08:00 [facility] ANEMIA STUDY 2020-03-19 110 [facility] 09:08:00 [facility] ANEMIA STUDY 2020-03-19 21 [facility] 09:08:00 [facility] ANEMIA STUDY 2020-03-19 81 [facility] 09:08:00 K[facility] ANEMIA STUDY 2020-03-19 [id number] [facility] 09:08:00 [facility] CHEM PANEL 2020-03-19 4.4 [facility] 09:08:00 [facility] CHEM PANEL 2020-03-19 74 [facility] 09:08:00 [facility] CHEM PANEL 2020-03-19 52 [facility] 09:08:00 [facility] CHEM PANEL 2020-03-19 4.01 [facility] 09:08:00 [facility] CHEM PANEL 2020-03-19 134 [facility] 09:08:00 Kory CHEM PANEL 2020-03-19 5.1 [facility] 09:08:00 V[facility] CHEM PANEL 2020-03-19 101 [facility] 09:08:00 Kory CHEM PANEL 2020-03-19 23 [facility] 09:08:00 [facility] CHEM PANEL 2020-03-19 8.3 [facility] 09:08:00 [facility] CHEM PANEL 2020-03-19 15.1 [facility] 09:08:00 Kory CHEM PANEL 2020-03-19 15 [facility] 09:08:00 [facility] HEMATOLOGY 2020-03-19 Normal [facility] 09:08:00 (03/19/20 4:08 Kory AM) HEMATOLOGY 2020-03-19 Normal [facility] 09:08:00 (03/19/20 4:08 Vance AM) HEMATOLOGY 2020-03-19 69.5 [facility] 09:08:00 Kory HEMATOLOGY 2020-03-19 13.8 [facility] 09:08:00 Kory HEMATOLOGY 2020-03-19 10.4 [facility] 09:08:00 Kory HEMATOLOGY 2020-03-19 5.0 [facility] 09:08:00 [facility] HEMATOLOGY 2020-03-19 1.3 [facility] 09:08:00 [facility] HEMATOLOGY 2020-03-19 6.9 [facility] 09:08:00 Kory HEMATOLOGY 2020-03-19 1.4 [facility] 09:08:00 [facility] HEMATOLOGY 2020-03-19 1.0 [facility] 09:08:00 Kory HEMATOLOGY 2020-03-19 0.5 [facility] 09:08:00 [facility] HEMATOLOGY 2020-03-19 0.1 [facility] 09:08:00 [facility] HEMATOLOGY 2020-03-19 9.9 [facility] 09:08:00 [facility] HEMATOLOGY 2020-03-19 2.96 [facility] 09:08:00 [facility] HEMATOLOGY 2020-03-19 9.4 [facility] 09:08:00 Kory HEMATOLOGY 2020-03-19 28.6 [facility] 09:08:00 [facility] HEMATOLOGY 2020-03-19 96.4 [facility] 09:08:00 [facility] HEMATOLOGY 2020-03-19 09:08:00 Test Item Value Reference Range Interpretation Comme nts MCH (test code = MCH) 31.6 pg 27.0-31.0 [facility] OaoigtdAADNXBHMVT5590-29-10 09:08:0032.8[facility] HermannHEMATOLOGY 2020-03-19 09:08:0019.6[facility] EojljsmCUZWHMDIJN6796-17-86 09:08:39830Edbesxww ZelqayaLQHOWLYPOS9752-23-37 09:08:007.4[facility] HermannCHEM CZGGK2330-86-61 08:55:0076[facility] HermannCHEM UTKPK4876-16-98 08:55:0037[facility] HermannCHEM FNQYY7295-59-74 08:55:003.04[facility] HermannCHEM RTNZZ2657-30-84 08:55:50005 [facility]annCHEM GQYLI1544-01-60 08:55:004.4[facility] HermannCHEM PANEL 2020-03-18 08:55:97054Sevovmqf HermannCHEM XQTWR5002-18-33 08:55:0026[facility] HermannCHEM WMRXR2848-90-35 08:55:008.2[facility] HermannCHEM AODOO1781-84-76 08:55:0011.4[facility] HermannCHEM DAFBW3780-87-57 08:55:0020[facility] HermannCHEM ZICHX2552-78-10 08:55:003.2[facility] UkrwqtnXWXZUWVBHK7266-03-38 08:55:0011.6 [facility] AcmbvkwLYOVHYSVKL1385-43-65 08:55:003.32[facility] HermannHEMATOLOGY 2020-03-18 08:55:0010.2[facility] EqbjwyfZKUMTXEZZV6915-69-13 08:55:0031.9[facility] QvbmlivUJHQZNHMYY6023-33-85 08:55:0096.3[facility] NqcswsrLONGZBNYPI7470-54-24 08:55:00 Test Item Value Reference Range Interpretation Comments MCH (test code = MCH) 30.7 pg 27.0-31.0 [facility] WikutllEVURJMGEZE4701-75-62 08:55:0031.9[facility] HermannHEMATOLOGY 2020-03-18 08:55:0020.1[facility] WiztqmcCGCBRWSZRQ8278-03-92 08:55:30722Swrsytpy HczgfxlZJSWVEJSCT3373-28-92 08:55:007.4[facility] FvymzxkQQPWKOVPGU8907-82-30 08:55:0072.5[facility] FlrwjdgZIZKLCBCHW3097-97-88 08:55:0010.5[facility] DOHAVCGIZK3091-04-86 08:55:0012.2[facility] AuliwrjLIJYSGSSML9497-12-54 08:55:00 3.8[facility] BlaqomeTYUKLPXZWN2160-25-77 08:55:001.0[facility] HermannHEMATOLOGY 2020-03-18 08:55:008.4[facility] JwximjjVXUXIHTXSX2648-41-92 08:55:001.2[facility] SpbbvmfCRJMCTGWIS0617-29-40 08:55:001.4[facility] RxxlnpsGTCCTMFPZA6037-10-75 08:55:000.4[facility] HxxlehfAMYEYKSSZF4089-98-13 08:55:000.1[facility] HermannCHEM GMGOR7718-98-79 10:23:56763Hwbburru HermannCHEM ISZHU8827-92-61 10:23:0034 [facility]annCHEM GFYXU4380-83-19 10:23:003.53[facility] HermannCHEM PANEL 2020-03-16 10:23:74645Qctnlvog HermannCHEM IAMPW1625-13-92 10:23:003.6[facility] HermannCHEM AJBKZ0514-41-44 10:23:51171Cafwygjl HermannCHEM CVPUE1643-40-56 10:23:0027[facility] HermannCHEM SHFXH2965-89-93 10:23:008.2[facility] HermannCHEM BUMJM4353-91-44 10:23:0011.6[facility] HermannCHEM OFGFH6133-49-81 10:23:0017 [facility] XsxjnqbZUJKLXTPFM6181-97-33 10:23:009.6[facility] HermannHEMATOLOGY 2020-03-16 10:23:001.4[facility] BadlhkdIWBJIROFHO9487-23-02 10:23:001.1[facility] AuryygnLSSYTWAWZN5674-17-56 10:23:000.4[facility] YrcaofpLLBSVSRWBT1763-54-46 10:23:0077.0[facility] VzsiwnyOWJORNTKGQ3478-07-76 10:23:000.0[facility] BONOHNVPQQ6764-43-42 10:23:0011.0[facility] CjhipreTFEMHXIMKR3314-22-08 10:23:00 9.0[facility] OrfkyraDHHBUECKKD8476-92-13 10:23:003.0[facility] HermannHEMATOLOGY 2020-03-16 10:23:000.0[facility] GgosqlpBSKZEBICKL6070-62-19 10:23:00Normal (03/16/20 5:23 AM)[facility] VhsodksJUIFOKVUOQ3920-34-10 10:23:00Normal (03/16/20 5:23 AM)[facility] WvkdratHGDBNHXRSF5379-06-28 10:23:0012.5[facility] WYTRTXPDOU4112-84-17 10:23:003.26[facility] HrnzchyLPRREJVIWV6863-56-14 10:23:00 10.1[facility] SpbsucyFARKKZSMKQ5430-06-01 10:23:0031.2[facility] HermannHEMATOLOGY 2020-03-16 10:23:0095.7[facility] BmwqhxcHAUJGNTFMY5679-40-36 10:23:00 Test Item Value Reference Range Interpretation Comments MCH (test code = MCH) 30.9 pg 27.0-31.0 [facility] QdrwhqhVQPYDKFULE1144-84-81 10:23:0032.3[facility] HermannHEMATOLOGY 2020-03-16 10:23:0020.7[facility] HzueypcCJDFFBXTKI4292-39-22 10:23:94615Urbmdjbg CsiouymJWZMOMBMYJ4414-36-82 10:23:006.8[facility] BtfmrctRHCEKBPDLX1553-45-94 09:00:000.8[facility] SnvqxglKUYEVCJRMI7800-88-91 09:00:000.1[facility] UYCTVUVNUO3166-86-30 19:18:04Not Detected (03/12/20 2:18 PM)[facility]annBLOOD BANK IVADNLF2521-28-84 14:30:00Negative (03/11/20 9:30 AM)[facility] MarkrannBLBullhorn BANK JHJXAEX9075-51-64 13:25:00Product available 5(03/11/20 8:25 AM)[facility] HermannCHEM NRWRY8575-44-68 12:23:004.4[facility] GwszxzcRHBTPSNNJM2729-11-82 03:24:00 Test Item Value Reference Range Interpretation Comments PT (test code = PT) 17.5 s 12.0-14.7 [facility] DgpdmezUOZYKPQPKT2557-57-51 03:24:00 Test Item Value Reference Range Interpretation Comments INR (test code = INR) 1.42 1 0.85-1.17 [facility] JxrkseqHAPBNCSIDX6527-20-84 03:24:00 Test Item Value Reference Range Interpretation Comments PTT (test code = PTT) 44.3 s 22.9-35.8 [facility] JrkseqjEYVQVJHIWT5754-27-93 11:56:00Normal (03/09/20 6:56 AM)[facility] YdcdicoGOJNDYQPND7973-39-94 11:56:00Normal (03/09/20 6:56 AM)[facility] HermannCHEM BNRYM0049-89-96 09:16:001.9[facility] HermannCHEM EMXZT7915-78-81 08:17:001.9 [facility] ZwrwlxsDJSTONNDLA8468-31-80 08:17:00Moderate *ABN*(03/06/20 3:17 AM) [facility] HermannCHEM DCYRH6052-14-38 10:13:001.9[facility] HermannCHEM PANEL 2020-03-04 09:35:40858Ufueaivr CbkwxmnFDRCZRFJOO3186-75-52 09:35:009.7[facility] PrttgnxTRVMDFACPE9017-08-56 09:35:56133Dnggxxxu HcxaqdqOBDKVUVYZP2344-48-07 20:30:00Negative *NA*(03/03/20 3:30 PM)[facility] HermannBLOOD BANK RESULTS 2020-03-03 12:58:00Product available (03/03/20 7:58 AM)[facility] HermannANEMIA LYUOG2623-90-98 09:42:981840Qwmkasqs HermannANEMIA HPRVE7824-73-11 09:42:0044 [facility] HermannANEMIA IFRKY5043-18-15 09:42:17925Oubdxkmm HermannANEMIA STUDY 2020-03-03 09:42:43600Cnpvhupc HermannANEMIA NFNHG4117-63-49 09:42:0025[facility] HermannANEMIA JBUWD7497-15-57 09:42:0012.1[facility] HermannANEMIA RMSBB5862-82-65 09:42:40233Htbcgytz HermannCHEM KJSZX2525-98-41 09:42:00 Test Item Value Reference Range Interpretation Comments B/C Ratio (test code = B/C Ratio) 10 1 6-25 [facility] HermannCHEM HLPGA8426-32-34 09:42:005.1[facility] HermannCHEM PANEL 2020-03-03 09:42:002.2[facility] HermannCHEM JXVAW0499-61-30 09:42:002.9[facility] HermannCHEM IZCKM5389-35-65 09:42:00 Test Item Value Reference Range Interpretation Comments A/G Ratio (test code = A/G Ratio) 0.8 1 0.7-1.6 [facility] HermannCHEM TYCHQ9986-46-77 09:42:0027[facility] HermannCHEM PANEL 2020-03-03 09:42:0022[facility] HermannCHEM CFNGE3265-29-13 09:42:47926Axsxmjfj HermannCHEM QWABI0852-55-32 09:42:000.6[facility] KwxinqjCXICCHQXPH0160-23-23 09:42:00 Test Item Value Reference Range Interpretation Comments PT (test code = PT) 15.7 s 12.0-14.7 [facility] OutsnktWAORBQJJFS3396-79-26 09:42:00 Test Item Value Reference Range Interpretation Comments INR (test code = INR) 1.24 1 0.85-1.17 [facility]XktcrdrIZZNNNHBAK6351-61-45 09:42:00 Test Item Value Reference Range Interpretation Comments PTT (test code = PTT) 53.7 s 22.9-35.8 [facility] HospitalQluhtptDRULRYYOYX4126-39-91 09:42:003.2[facility] 2020-03-03 09:42:39477Lbgxwchw NhxnkppIUOUIXVHLQ8307-36-70 09:42[facility]002.69[facility] GEJLQSF8391-26-55 08:09:00Product available (03/03/20 3:09 AM) [facility] VGDPZDO2001-70-67 07:11:00Product available 4(03/03/20 2:11 AM)[facility] LECORVK1318-24-26 07:11:00Product available (03/03/20 2:11 AM)[facility] OLWHWKR1128-12-54 06:57:00Negative (03/03/20 1:57 AM)[facility] HospitalXcgutkkXIOKGSJPYB5171-71-31 03:14:00 Test Item Value Reference Range Interpretation Comments PT (test code = PT) 15.3 s 12.0-14.7 [facility] HospitalLezyadrWMUVBUUHJK3257-87-67 03:14:00 Test Item Value Reference Range Interpretation Comments INR (test code = INR) 1.20 1 0.85-1.17 [facility] LOW EXT JOINT W/O CONTRAST*WW*2019-10-11 12:32:32Exam MRI of the right ankle without contrastLocation: O4Pqbjnbq: Ulceration of the heel with pain for 2 monthsTechnique: High-resolution multiplanar multiecho imaging of the right ankle wasperformed without contrast.Findings: The study is limited secondary to motion artifact due to discomfort.Soft tissue ulceration is present within the posterior hindfoot just posteriorto the calcaneus and distal Achilles tendon with underlying cellulitis andedema however the Achilles tendon is intact. There is somemild marrow edemawith decreased T1 and an increased T2 and STIR signal within the posteriorcalcaneuswhich could be reactive in nature although very [...] involving the proximal medial band of the plantarfascia.Basic metabolic panel 2019-05-14 06:45:27 Test Item Value Reference Range Interpretation Comments Sodium (test code = 2951-2) 136 135- 148 mEq/L Potassium (test code = 2823-3) 4.0 3.5- 5.0 mEq/L Chloride (test code = 2075-0) 98 98- 112 mEq/L CO2 (test code = 2027-9) 25 24- 31 mEq/L Anion gap (test code = 29364-3) 13@ANIO 7- 15 mEq/L BUN (test code = 3094-0) 26 mg/dL 8-23 H Creatinine (test code = 2160-0) 3.55 mg/dL 0.7-1.2 H Glucose (test code = 2345-7) 83 mg/dL 65-99 Calcium (test code = 31380-4) 8.6 mg/dL 8.8-10.2 L Lab Interpretation (test code = Abnormal 70092-4) Thony MethodistEstimated TLD0002-91-20 06:39:43 Test Item Value Reference Range Interpretation Comments Estimated GFR (test 17 mL/min/1.73 m2 A Myranda widuncan Units code = 5488) InterpretationG 1 >=90 Kaleigh l or highG2 60-89 Mildly decrease dG3a 45-59 Mil dly to moderately decr pctueK8c 30-44 Moderately to s everely decreasedG4 15-29 Severe ly decreasedG5 <15 Kidney augustina lureThe eGFR was calcul ated using the Chron Kidney Disease Epidemiology Collaboration ( CKD-EPI) equation. Interpretation is based on recommendati ons of the National [facility]-Kidn ey Disease Outcome s Quality Initiat shima (NKF-KDOQI) pub lished in 2013. Lab Interpretation Abnormal (test code = 61597-4) [facility] with platelet and hpmnwzjwefom8653-65-05 05:49:39 Test Item Value Reference Range Interpretation Comments WBC (test code = 23784-8) 7.5 4.5- 11.0 k/uL RBC (test code = 27992-7) 3.27 m/uL 4.4-6 L HGB (test code = 718-7) 9.4 g/dL 14-18 L HCT (test code = 4544-3) 30.4 % 41-51 L MCV (test code = 787-2) 93.0 fL 82-100 MCH (test code = 785-6) 28.7 pg 27-34 MCHC (test code = 786-4) 30.9 g/dL 31-37 L RDW - SD (test code = 96333-8) 52.5 fL 37-55 MPV (test code = 38061-9) 9.2 fL 6.9-11 Platelet count (test code = 184 K/uL 150-400 37328-2) Nucleated RBC (test code = 89696-6) 0.00 /100 WBC Neutrophils (test code = 35844-5) 62.2 % 39-69 Lymphocytes (test code = 58122-4) 16.9 % 25-45 L Monocytes (test code = 69152-2) 13.3 % 0-10 H Eosinophils (test code = 84005-0) 6.3 % 0-5 H Basophils (test code = 83542-8) 0.8 % 0-1 Immature granulocytes (test code = 0.5 % 0-1 94365-1) Lab Interpretation (test code = Abnormal 48711-9) Thony [facility] tdmadsj9736-44-77 12:56:15 Test Item Value Reference Range Interpretation Comments POC glucose (test 69 mg/dL 65-99 RN Notifie dMeter ID: code = 59384-0) [id number] erator: Michelle Grantood culture, aerobic & gdnnfhtxo4334-57-50 12:33:05 Test Item Value Reference Range Interpretation Comments Blood culture No growth Specimen isolate (test after 5 days InformationSpe cimen code = 600-7) of Source: BloodS pecimen incubation. Site: Dialysis catheter Thony RiojasistAmmonia xswan7824-08-09 12:41:20 Test Item Value Reference Range Interpretation Comments Ammonia (test code = 1841-6) 14 umol/L 16-60 L Lab Interpretation (test code = Abnormal 04294-4) Thony GrantProthrombin time with HWE6905-41-03 06:04:33 Test Item Value Reference Range Interpretation Comments Prothrombin time (test 21.0 11.5- 14.5 sec H code = 5902-2) INR (test code = 1.9 [facility] 359[facility]) Normalized Rati o (INR) is a therapeuti c monitoring tool for patients who ar e stable on oral anticoagulant t herapy. An INR of 2.0-3 .0 is suggested for d eep vein thrombosis/pulm onary embolism. Lab Interpretation Abnormal (test code = 78459-0) Thony GrantEEG (routine)2019-05-07 16:15:34Date of Study Completion: May 07, [...] epilepticus seen over the course of this tracing.[place] MethodistCT Head Wo Wjghgkxs7442-70-88 11:20:00Hm Interface, Radiology Results 05/07/2019 11:23 AM [...] acute findings in the brainor extra axial region.[facility]-[id number] MethodistHepatitis B surface Ab, quantitative 2019-05-07 10:09:21 [...] to MMWR Decembe r 2012/Vol. 62(No . 10);-.Refere nce Interval: anti- HBs 9.99 IU/L or less .. ..... Rxejifyh65.00 I U/L or greater .... PositiveResults greater than 1,000.00 I U/L are reported as gre ater than 1,000.00 IU/L. This assay should not be u sed for blood donor scr eening, associated re-e ntry protocols, or f or screening Human Cell, Tissues and Pallavi lular and Tissue-Based Pr oducts (HCT/P).Perform ed by Xiaoying, [address] [facility], [place] [address] www.[email or web address], Elie Dick MD - Lab. Director [place] MethodistAnaerobic pgkmrkw2661-96-15 07:27:23 Test Item Value Reference Range Interpretation Comments Anaerobic No anaerobic Specimen culture isolate organisms InformationS pecimen (test code = isolated. Source: WoundSp ecimen 552) Site: Right Leg [place] MethodistECG 12 bxui3428-06-16 17:18:53 Test Item Value Reference Range Interpretation Comments Ventricular rate (test 95 code = 253) Atrial rate (test code 95 = 255) NH interval (test code 168 = 266) QRSD [...] of 24-JUN-2010 11:35,-No significant change was found- Thony Funeserobic oitzfiv9911-96-59 10:09:47Aerobic culture isolateMixed edwige- more than 3 organisms isolated.Consider resubmitting specimen if clinically indicated. Comment: Specimen InformationSpecimen Source: WoundSpecimen Site: Right Leg [facility] Hemoglobin E9m3699-35-30 07:45:50 Test Item Value Reference Range Interpretation Comments Hemoglobin A1C (test 4.7 % 4-5.6 HbA1c c utoffs for code = 20207-4) diagnosing d iabetes:4.0% - 5.6% = normal 5.7% - 6.4% = increase d risk for diabetes (prediabetes) >=6.5% = diabetes Goals for glycemic contro l (ADA 2016)< 7.0% Ta rget for non geraldine lts with diabetes. More or less stringent targe ts may be appropriate for individual nara ents. <7.5% Target for Children and ad olescents with type 1 alissa betes. Bhandari ShinerustEEG (routine)2019-05-04 09:42:18Date of Study Completion: May 04, [...] epilepticus seen over the course of this tracing.Bhandari ShineistSyphilis total jfgmrngs0386-55-51 04:16:54 Test Item Value Reference Range Interpretation Comments Syphilis total Non-reactive Non-reactive No serologica l antibody (test code evidence of syphilis = 6194) [facility]. [facility] Hazgamdz7020-58-89 03:01:16 Interface, Radiology Results 05/04/2019 3:04 AM CDTEXAMINATION: MRI BRAIN WO [...] shows no gross abnormalities. IMPRESSION:No acute intracranial abnormality.[facility]-[id number] MethodistVitamin B12 dwpeb0630-79-20 21:03:26 Test Item Value Reference Range Interpretation Comments Vitamin B12 (test code 1098 pg/mL 211-946 H Signi ficant overlap = 2132-9) exists between normal and deficiency states.However, most patients with deficiencies wi ll have Serum B12 <200 pg/mL. Lab Interpretation Abnormal (test code = 70463-1) [place] MethodistGram dexfn5037-51-41 16:20:46 Test Item Value Reference Range Interpretation Comments Gram stain No WBC's or Specimen isolate (test organisms seen. Information Specimen code = 1469) Source: WoundSp ecimen Site: Right Leg [place] MethodistHepatitis B surface znnmupe3212-81-16 12:06:03 Test Item Value Reference Range Interpretation Comments Hepatitis B surface Ag (test Non-reactive Non-reactive code = 5195-3) [place] MethodistLactic acid level, SEPSIS - Now and repeat 2x every 3 hours 2019-05-03 07:09:04 Test Item Value Reference Range Interpretation Comments Lactic acid (test code = 64442-9) 0.7 mmol/L 0.5-2.2 Thony MethodistThyroid stimulating nvbwofb0141-50-70 04:23:41 Test Item Value Reference Range Interpretation Comments TSH (test code = 3016-3) 95.40 0.27- 4.20 uIU/mL H Lab Interpretation (test code = Abnormal 27933-9) Thony MethodistT4, kgpe1930-00-84 04:03:41 Test Item Value Reference Range Interpretation Comments T4, free (test code = 3024-7) 0.7 ng/dL 0.9-1.7 L Lab Interpretation (test code = Abnormal 77243-5) Thony MethodistComprehensive metabolic ciizp2564-97-91 03:52:18 Test Item Value Reference Range Interpretation Comments Sodium (test code = 2951-2) 128 135- 148 mEq/L L Potassium (test code = 2823-3) 5.9 3.5- 5.0 mEq/L H Chloride (test code = 2075-0) 90 98- 112 mEq/L L CO2 (test code = 2027-9) 20 24- 31 mEq/L L Anion gap (test code = 20349-0) 18@ANIO 7- 15 mEq/L H BUN (test code = 3094-0) 70 mg/dL 8-23 H Creatinine (test code = 2160-0) 8.44 mg/dL 0.7-1.2 H Glucose (test code = 2345-7) 92 mg/dL 65-99 Calcium (test code = 51192-1) 9.5 mg/dL 8.8-10.2 Protein (test code = 2885-2) 6.2 g/dL 6.3-8.3 L Albumin (test code = 1751-7) 3.3 g/dL 3.5-5 L A/G ratio (test code = 1759-0) 1.1 0.7-3.8 Alkaline phosphatase (test code = 145 U/L 40-129 H 6768-6) AST (test code = 1920-8) 22 U/L 10-50 ALT (test code = 1742-6) 14 U/L 5-50 Total bilirubin (test code = 0.3 mg/dL 0.2-1.2 1974-2) Lab Interpretation (test code = Abnormal 51499-1) Thony MethodistBacteria identified in Wound by Pcgfjkc8731-17-09 07:57:00 ResultsMataMount [facility]utney [facility] GroupRAD, CHEST, 1 VIEW, NON [id number] 07:44:00 Reason for exam:->pneumoniaShould this be performed at the bedside?->Yes FINAL REPORT CHEST AP PORTABLE Comparison exam: 07/13/2018 History provided: Pneumonia Heart size normal. Chronically elevated right hemidiaphragm with minimal scarring or atelectatic change at the right base. Lungs otherwise clear and vascularity normal. Signed: Tk Butlerrt Verified Date/Time: 08/15/2018 07:44:34 Reading Location: [facility] Radiology Reading Room REHENSIVE METABOLIC [id number] 06:02:00 Test Item Value Reference Range Interpretation [...] S NOT APPLICABLE FOR DIALYSIS PATIEN TS. ZFLQVVYNX3541-01-60 05:52:00 Test Item Value Reference Range Interpretation Comments MAGNESIUM (BEAKER) (test code = 1.5 mg/dL 1.5-3.0 627) CBC W/PLT COUNT & AUTO NPRMKHGJLKWQ6917-66-63 05:24:00 Test Item Value Reference Range Interpretation [...] (test code = 2801) HEPATITIS B SURFACE HVNEXDYO7042-34-86 11:48:00 Test Item Value Reference Range Interpretation Comments HEPATITIS B SURFACE ANTIBODY 501.0 mIU/mL <8.0 H (BEAKER) (test code = 647) BASIC METABOLIC [id number] 09:47:00 Test Item Value Reference Range Interpretation [...] PATIEN TS. CBC W/PLT COUNT & AUTO [id number] 09:25:00 Test Item Value Reference Range Interpretation [...] (test code = 2801) HEPATITIS B SURFACE QCXJVCQ2491-77-18 06:36:00 Test Item Value Reference Range Interpretation Comments HEPATITIS B SURFACE ANTIGEN (2) Nonreactive Nonreactive (BEAKER) (test code = 2585) RAD, CHEST, 1 VIEW, NON JDKK3606-01-02 08:35:00Reason for exam:- >pneumoniaShould this be performed [...] MDReport Verified Date/Time: 08/13/2018 08:35:27 Reading Location: [address] Neuro Reading Room FSLIQGZW4490-97-84 06:45:00 Test Item Value Reference Range Interpretation Comments PHOSPHORUS (BEAKER) (test code = 5.1 mg/dL 2.5-4.5 H 604) COMPREHENSIVE METABOLIC [id number] 06:13:00 Test Item Value Reference Range Interpretation [...] S NOT APPLICABLE FOR DIALYSIS PATIEN TS. [id number] 05:58:00 Test Item Value Reference Range Interpretation Comments MAGNESIUM (BEAKER) (test code = 1.5 mg/dL 1.5-3.0 627) CBC W/PLT COUNT & AUTO KWGDLTUMGKID5503-69-93 05:33:00 Test Item Value Reference Range Interpretation [...] 0-0 PERCENT (BEAKER) (test code = 2801) UPZFFIZJXSUN9438-15-67 17:05:59146Utgcliho UxszztzHOOZSLFBKRKJ4208-45-98 17:05:004.7[facility] PiczzdmCKYABYEIXIKD9925-93-56 17:05:0091[facility] VUOBKYIMHFRG8574-04-69 17:05:0061[facility] CtcugypEPPYIMOKGFHD4709-21-28 17:05:00 108[facility] JoqaropGUZKLOKXJTRF5697-36-76 17:05:009.9[facility] Kory TPCJZXXJZFWX7839-50-14 17:05:0029.0[facility] Kory
[2020-03-24 13:11] VITALS: TEMP 98.8; O2SAT 100
[2020-03-24 13:13] VITALS: BP 160/77
== END 2020-03-24 12:59 | disposition home or self-care (01) ==
LOC: ER 10:16
DX: I12.0 Hypertensive chronic kidney disease with stage 5 chronic kidney disease or end stage renal disease (principal); E11.22 Type 2 diabetes mellitus with diabetic chronic kidney disease; N18.6 End stage renal disease; Z99.2 Dependence on renal dialysis; Z79.01 Long term (current) use of anticoagulants; Z79.82 Long term (current) use of aspirin; Z88.5 Allergy status to narcotic agent
CPT/HCPCS: 99284